=== PATIENT | male | born 1945 | race Caucasian/White ===

== ENCOUNTER 2020-01-08 19:18 | Inpatient (IN) | payer MEDICAID ==
[~2020-01-08] VITALS: Ht 177.8 cm; Wt 82.6 kg
--- NOTE | 2020-01-08 22:00 | NUR ---
Admitted patient from [facility], Awake, per report patient only speaks farsi. No signs of any distress, connected to vent, Gt intact, cleaned and assisted to bed. Jenae Grand daughter called and was aware that patient is admitted and is in room 426.
[2020-01-08 22:15] VITALS: BP 131/76
--- NOTE | 2020-01-08 22:39 | NUR ---
Pt rec'd by ambulance on settings of AC 16, VT 550, +5 PEEP and 5LPM bleed in O2. No resp. distress noted. Shiley 8 is patent and secure; B/U Shiley 8 and BVM are at bedside. Pt to be monitored throughout the shift and PRN sx. HT-50 alarm parameters have been checked and remain audible.
[2020-01-08] MEDS ORDERED: COD LIVER OIL/ZINC OXIDE OINT 113 GM TUBE TOP PRN (23:00)
[2020-01-08] MEDS ORDERED: COD LIVER OIL/ZINC OXIDE OINT 113 GM TUBE TOP SCH (23:00)
[2020-01-09] VITALS (9 sets, daily range): BP systolic 110–179; BP diastolic 62–94
--- NOTE | 2020-01-09 | NUR ---
Patient is afebrile, easy to arouse, trach is intact and patent, connected to vent on prescribed settings, no respiratory distress noted. Gt feeding tolerating well, no nausea or vomiting noted, noted with abdominal discolorations, noted with abdominal fold rash, left and right groin rash, trach site redness and left and right foot dryness, treatment done as ordered, turned and repositioned, kept clean and comfortable.
[2020-01-09] MEDS ORDERED: MAG HYDROX/AL HYDROX/SIMETH 30 ML LIQUID UDC GT PRN (00:30)
[2020-01-09] MEDS ORDERED: ACETAMINOPHEN 650 MG/20.3 ML LIQUID UDC GT PRN ×2 (00:30)
[2020-01-09] MEDS ORDERED: ONDANSETRON 4 MG/2 ML VIAL IV PRN (00:30)
[2020-01-09] MEDS ORDERED: BENZOCAINE/MENTH/CETYLPYRD LOZENGE MM PRN (00:30)
[2020-01-09] MEDS ORDERED: hydrALAZINE HCL 10 MG TABLET GT PRN (00:30)
[2020-01-09] MEDS ORDERED: MORPHINE SULFATE 2 MG/1 ML DISP.SYRIN IM PRN (00:30)
[2020-01-09] MEDS ORDERED: LORAZEPAM 2 MG/1 ML VIAL IV PRN (00:30)
[2020-01-09] MEDS ORDERED: QUETIAPINE FUMARATE 25 MG TABLET PO PRN (00:30)
[2020-01-09] MEDS ORDERED: MAGNESIUM HYDROXIDE 30 ML LIQUID UDC GT PRN ×2 (00:30→08:01)
[2020-01-09] MEDS: COD LIVER OIL/ZINC OXIDE OINT 113 GM TUBE TOP SCH ×6 (02:55→20:35)
[2020-01-09] MEDS: VITAMINS A AND D OINT TP SCH ×3 (02:56→20:35)
[2020-01-09] MEDS: PANTOPRAZOLE ORAL SUSPENSION 40 MG SUSPDR.PKT GT SCH (06:00)
[2020-01-09] MEDS: ASCORBIC ACID 500 MG TABLET GT SCH (06:43)
[2020-01-09] MEDS: PROTEIN SUPPLEMENT (PROSTAT) 30 ML LIQUID GT SCH ×3 (06:43→18:13)
[2020-01-09] MEDS ORDERED: ACETAMINOPHEN 650 MG/20 ML UDC- SA PATIENTS-FEVER ONLY GT PRN (08:00)
--- NOTE | 2020-01-09 08:00 | NUR ---
COVID19 SPECIMEN WAS COLLECTED AND SENT TO LAB.
[2020-01-09] MEDS ORDERED: MORPHINE SULFATE 2 MG/1 ML DISP.SYRIN IV PRN (08:12)
[2020-01-09] MEDS ORDERED: COD LIVER OIL/ZINC OXIDE OINT 113 GM TUBE TP PRN (08:45)
[2020-01-09] MEDS: NEOMY/BACITRA/POLYMYXIN B OINT UD PACKET TP SCH (09:00)
[2020-01-09] MEDS ORDERED: QUETIAPINE FUMARATE 25 MG TABLET GT SCH (09:00)
[2020-01-09] MEDS ORDERED: NORMAL SALINE FLUSH 10 ML DISP.SYRIN IV SCH (09:00)
[2020-01-09] MEDS: COD LIVER OIL/ZINC OXIDE OINT 113 GM TUBE TP SCH ×2 (09:00→20:35)
[2020-01-09] MEDS: NEOMY/BACITRAC/POLYMI OINT 28.35 GM TUBE TOP SCH (09:00)
--- NOTE | 2020-01-09 09:30 | NUR ---
DR. AGRAWAL WAS PAGED AND CALLED BACK AND MEDICAL ORDERS WERE VERIFIED WITH HIM AND WITH NO CHANGES ON CURRENT REGIMEN.HE STATED THAT URINE AND SPUTUM SCREENING NOT NEEDED AT THIS TIME D/T PT. COMES FROM [facility] AND HE WAS AWARE THAT ONLY MRSA SCREENING AND COVID 19 TEST WAS DONE.DR. AGRAWAL WAS ALSO STATED THAT A PSYCH EVAL WAS NOT REQUIRED AT THIS TIME AND THAT HE WILL ASSESS PT. LATER ON AND WILL F/U H&P TOO.HE REQUESTED TO GET COPY OF LATEST LAB RESULTS FROM [facility] IF POSSIBLE.
[2020-01-09] MEDS: ZINC SULFATE 220 MG CAPSULE GT SCH (09:42)
[2020-01-09] MEDS: METOPROLOL TARTRATE 25 MG TABLET GT SCH ×2 (09:42→20:29)
[2020-01-09] MEDS ORDERED: TUBERCULIN,PURIF.PROT.DERIV. 5 TU/0.1 ML TEST ID ONE (10:00)
--- NOTE | 2020-01-09 10:51 | NUR ---
PT'S RESP. GREEN PARTY THAIS CALLED TO UNIT AND AWARE OF PT'S ROOM # AND WAS INSTRUCTED HOW TO ZOOM AND SCHEDULE ZOOM AFTER 11:30.SHE ALSO GAVE CONSENT TO 2 NURSES FOR MEDICATIONS SEROQUEL AND ATIVAN ORDERED (SEE MAR) AND STATED THAT SHE WAS AWARE AND FAMILIAR WITH PT'S USE AND INDICATION OF THESE MEDS ALREADY SINE PT. WAS IN CROCKETTS BLUFF..THAIS ALSO STATED PT. ONLY SPEAKS AND UNDERSTANDS GEORGIAN OR COLOMBIAN AND THAT HE DOES NOT HAVE HEARING PROBLEM OR VISION PROBLEM .
--- NOTE | 2020-01-09 10:55 | NUR ---
PT'S RESP. DEMOCRAT THAIS STATED THAT PT. HAS SCIATIC PAIN EPISODES THAT AFFECT HIS RT LEG FOR THE NURSE TO KNOW.
--- NOTE | 2020-01-09 10:57 | NUR ---
[facility] WAS CALLED AND ALREADY AWARE OF PT'S ADMISSION AND STATED THAT THEY WILL BE SENDING MEDICATIONS TODAY.
--- NOTE | 2020-01-09 11:00 | NUR ---
CASER IN AWARE THAT PT. NEEDS LAO OR CAMBODIAN CHANNEL ON .
--- NOTE | 2020-01-09 11:09 | NUR ---
COVID 19 ISOLATION PRECAUTIONS KEPT ALL TIMES SINCE UPON ADMISSION OF PT LAST NOC.
--- NOTE | 2020-01-09 11:35 | NUR ---
VIDEO CHAT PROVIDED Jenae hui
[2020-01-09] MEDS ORDERED: QUETIAPINE FUMARATE 25 MG TABLET PO ONE (12:41)
[2020-01-09] MEDS: QUETIAPINE FUMARATE 25 MG TABLET GT PRN (13:32)
[2020-01-09] MEDS ORDERED: HYDROGEN PEROXIDE 3% 118 ML BOTTLE TP PRN (15:30)
--- NOTE | 2020-01-09 17:38 | NUR ---
FREQUENT VISUAL CHECKS DONE FOR PTS COMFORT AND SAFETY. DR. WEINER WAS CALLED AND A MESSAGE WAS LEFT FOR ADMISSION PULMONARY CONSULTATION.
--- NOTE | 2020-01-09 17:39 | NUR ---
PT. NOTED ATTEMPTING TO VERBALIZE IN HIS [place] LANGUAGE.
--- NOTE | 2020-01-09 20:00 | NUR ---
MESSAGE LEFT RE: NEW ADMISSION FOR DR. WEINER.
--- NOTE | 2020-01-09 20:11 | NUR ---
Patient received in stable respiratory condition on Sotelo vent with current MD ordered vent settings. All alarms on and audible, Ambubag and spare trach at bedside. Airway is patent and secured. Suctioned PRN. Will continue to monitor.
[2020-01-09] MEDS: QUETIAPINE FUMARATE 25 MG TABLET GT SCH (20:29)
[2020-01-09] MEDS ORDERED: ENOXAPARIN SODIUM 40 MG/0.4 ML DISP.SYRIN SQ SCH (21:00)
[2020-01-09] MEDS: NORMAL SALINE FLUSH 10 ML DISP.SYRIN IV SCH (21:25)
[2020-01-09] MEDS: HYDROGEN PEROXIDE 3% 118 ML BOTTLE TP SCH (21:50)
[2020-01-09] MEDS: GLUCERNA 1.2 1000ML LIQUID GT PRN ×2 (21:54)
--- NOTE | 2020-01-09 22:55 | NUR ---
Patient is asleep, trach intact and patent, connected to Vent as ordered, no respiratory distress noted. Gt feeding tolerating well, no nausea/ vomiting noted. On contact isolation for COVID-19 precaution, kept clean and comfortable.
[2020-01-10] MEDS: ACETAMINOPHEN 650 MG/20 ML UDC- SA PATIENTS-PAIN ONLY GT PRN (02:00)
[2020-01-10] MEDS: QUETIAPINE FUMARATE 25 MG TABLET GT PRN (03:22)
[2020-01-10 03:51] VITALS: BP 118/76
--- NOTE | 2020-01-10 03:51 | NUR ---
T. 101.1, no sign of any distress, trach intact and patent, connected to vent, cooling measures given, 02 sat is 99%, kept patient clean and comfortable, will continue monitor.
--- NOTE | 2020-01-10 04:51 | NUR ---
Temperature rechecked and is now 99.4, sleeping comfortably, no signs of any distress noted, kept clean and comfortable,will continue monitor.
[2020-01-10] MEDS: ASCORBIC ACID 500 MG TABLET GT SCH (05:12)
[2020-01-10] MEDS: PROTEIN SUPPLEMENT (PROSTAT) 30 ML LIQUID GT SCH ×4 (05:12→18:05)
[2020-01-10] MEDS: PANTOPRAZOLE ORAL SUSPENSION 40 MG SUSPDR.PKT GT SCH (05:12)
--- NOTE | 2020-01-10 06:36 | NUR ---
Temperature is 98.6, sleeping , no signs of any distress noted, kept clean and comfortable.
--- NOTE | 2020-01-10 07:30 | NUR ---
RECIEVED PT IN BED, AWAKE, ALERT AND SOMEWHAT RESTLESS. FACE IS EVEN AND SYMMETRICAL. NOTED TO HAVE LEFT SIDED WEAKNESS, LEFT UPPER ARM IS FLACCID. TRACHEOSTOMY SHILEY 8 INTACT, CONNECTED TO A SMALL PORTABLE VENTILATOR MACHINE WITH A SETTING OF AC-16, FIO2 AT 50%, VT-550, PEEP-5. TOLERATING WELL, SAT-100%. SUCTION SMALL AMOUNT OF WHITISH CLEAR SECRETIONS. SEEN AND EXAMINED BY DR AGRAWAL WITH NEW ORDERS.
[2020-01-10 07:50] VITALS: BP 109/82
[2020-01-10] MEDS: ZINC SULFATE 220 MG CAPSULE GT SCH (09:00)
[2020-01-10] MEDS: NORMAL SALINE FLUSH 10 ML DISP.SYRIN IV SCH ×2 (09:00→21:00)
[2020-01-10] MEDS: NEOMY/BACITRAC/POLYMI OINT 28.35 GM TUBE TOP SCH (09:00)
[2020-01-10] MEDS: HYDROGEN PEROXIDE 3% 118 ML BOTTLE TP SCH ×2 (09:00→21:00)
[2020-01-10] MEDS: COD LIVER OIL/ZINC OXIDE OINT 113 GM TUBE TOP SCH ×4 (09:00→20:24)
[2020-01-10] MEDS: METOPROLOL TARTRATE 25 MG TABLET GT SCH ×2 (09:00→20:23)
[2020-01-10] MEDS: COD LIVER OIL/ZINC OXIDE OINT 113 GM TUBE TP SCH ×2 (09:00→20:25)
[2020-01-10] MEDS: NEOMY/BACITRA/POLYMYXIN B OINT UD PACKET TP SCH (09:00)
[2020-01-10] MEDS: QUETIAPINE FUMARATE 25 MG TABLET GT SCH ×2 (09:00→20:24)
[2020-01-10] MEDS: VITAMINS A AND D OINT TP SCH ×2 (09:00→20:25)
--- NOTE | 2020-01-10 09:30 | NUR ---
LAB WORKS DRAWN AND PCXR DONE AT THE BEDSIDE ORDERED. PT HAS A PERIPHERAL LINE ON HIS MY , FLUSHED AND PATENT.
[2020-01-10 09:35] LABS: BASOPHILS % (AUTO) 0.3 % (0.0-2.0); EOSINOPHILS # (AUTO) 0.2 K/uL (0.0-0.7); EOSINOPHILS % (AUTO) 2.6 % (0.0-7.0); HEMATOCRIT 26.6 % (36.7-47.1); HEMOGLOBIN 8.9 g/dL (12.5-16.3); LYMPHOCYTES # (AUTO) 1.2 K/uL (20.0-40.0); MEAN CORPUSCULAR HEMOGLOBIN 29.9 uug (23.8-33.4); MEAN CORPUSCULAR HGB CONC 33 g/dL (32.5-36.3); MEAN CORPUSCULAR VOLUME 89.9 fL (73.0-96.2); MONOCYTES # (AUTO) 1.1 K/uL (2.0-10.0); MONOCYTES % (AUTO) 12.5 % (0.0-11.0); NEUTROPHILS # (AUTO) 6.4 K/uL (1.8-8.9); NEUTROPHILS % (AUTO) 71.6 % (38.5-71.5); PLATELET COUNT (AUTO) 114 K/uL (152-348); RED BLOOD CELL COUNT(AUTO) 2.97 MIL/uL (4.06-5.63); WHITE BLOOD COUNT (AUTO) 8.9 K/uL (3.6-10.2)
--- NOTE | 2020-01-10 09:36 | NUR ---
PT. WAS SEEN AND EXAMINED BY DR. AGRAWAL AND SPOKE TO PT. IN IRISH AND PER HIS STATEMENT PT. IS DISORIENTED HE DOES NOT KNOW WHERE HE IS .
--- NOTE | 2020-01-10 09:38 | NUR ---
NEW ORDERS CARRIED OUT FROM DR. AGRAWAL.
--- NOTE | 2020-01-10 09:40 | NUR ---
DR. AGRAWAL AWARE PT. UNABLE TO SLEEP AT NOC SINCE ADMISSION ,FALLING ASLEEP AT 3 OR 4 IN AM AND NNO.HE STATED THAT NO BREATHING TX NEEDED.RT AWARE TO F/U STANDART ORDER FOR OXIGEN TITRATION .PT'S GRAND DTR THAIS AWARE OF LATEST ORDERS FROM DR. AGRAWAL AND IN AGREEMENT .
[2020-01-10 10:08] LABS: BILIRUBIN,TOTAL 0.5 mg/dL (0.2-1.0); POTASSIUM 3.6 mmol/L (3.5-5.1); TOTAL PROTEIN, SERUM 6.4 g/dL (6.4-8.2)
--- NOTE | 2020-01-10 11:15 | NUR ---
DR. LOPEZ WAS PAGED TO F/U CXR RESULT.
--- NOTE | 2020-01-10 11:30 | NUR ---
T-99F. PT FALLEN ASLEEP AND MORE CALM AFTER SEROQUEL VIA PEG GIVEN. TUBE FEEDING IN PROGRESS, NO RESIDUALS NOTED.
--- NOTE | 2020-01-10 12:43 | NUR ---
URINE COLLECTED AND SENT TO LAB.V/S CHECKED (SEE RECORD)PT. SLEEPING(DID NOT SLEEP WELL LAS T 2 NOCS)PT'S DTR. THAIS AWARE .MORNING CARE DONE .FREQUENT VISUAL CHECKS DONE FOR SAFETY AND COMFORT.
[2020-01-10 12:47] VITALS: BP 120/89
[2020-01-10 13:05] LABS: *BILIRUBIN,URIN NEGATIVE (NEGATIVE); *CLARITY,URINE SLIGHTLY CLOUDY (CLEAR); *COLOR,URINE YELLOW (YELLOW); *KETONES,URINE NEGATIVE (NEGATIVE); *UROBILINOGEN,URINE 0.2 E.U./dl (NORMAL); LEUKOCYTE ESTERASE ,URINE NEGATIVE (NEGATIVE); NITRITE, URINE NEGATIVE (NEGATIVE); UGLUCOSE NEGATIVE (NEGATIVE)
[2020-01-10 13:08] LABS: *BLOOD, URINE TRACE (NEGATIVE)
[2020-01-10] MEDS ORDERED: ENOXAPARIN SODIUM 40 MG/0.4 ML DISP.SYRIN SQ SCH (13:12)
--- NOTE | 2020-01-10 13:59 | NUR ---
PER RT CLAY PT. ON O2 SAT 32% (2L) WITH O2 SATURATION 96%.
--- NOTE | 2020-01-10 14:05 | NUR ---
O2 TITRATED DOWN TO 3LPM/ 32% FIO2. PT SPO2 WITHIN NORMAL LIMITS. PT APPEARS COMFORTABLE
[2020-01-10 15:21] LABS: BACTERIA,URINE FEW /HPF (NONE SEEN); CALCIUM OXALATE CRYSTALS,UR FEW /HPF (NONE SEEN); SQUAMOUS EPITHELIAL CELL,UR FEW /HPF (NONE SEEN)
[2020-01-10 16:00] VITALS: BP 120/89
--- NOTE | 2020-01-10 16:28 | NUR ---
DR. AGRAWAL WAS NOTIFIED ABOUT LAB RESULTS OF CXR CBC AND CMP AND UA AND ALSO AXILLAR TEMP. 99.6 F AND WITH NNO,HE REFUSED TO INCREASE AMOUNT OF WATER FLUSHES VIA GT BECAUSE HE IS TRYING TO AVOID EDEMA .
--- NOTE | 2020-01-10 16:30 | NUR ---
DR. AGRAWAL WAS CALLED AND AWARE THAT IV LORAZEPAM WAS NOT COVER BY INSURANCE AND WITH NEW ORDER NOW TO D/C AND START LORAZEPAM VIA GT PRN Q 2 HRS FOR ANXIETY M/B RESTLESSNESS WITH MONITORING OF EPISODES OF ANXIETY AND SIDE EFFECTS Q SHIFT.
--- NOTE | 2020-01-10 18:42 | NUR ---
PT'S GRAND DTR. THAIS VIDEOZOOMING WITH 4 MORE FAMILY MEMBERS AT THE SAME TIME ,PT. IS AWAKE AND LOOKING AT THE I PAD SCREEN APPARENTLY LISTENING THE CONVERSATION .
--- NOTE | 2020-01-10 19:20 | NUR ---
PT. NOTED INCREASINGLY AGITATED AFTER VIDEO ZOOMING AND PER RT LILIANA STATEMENT WHO SPEAKS UGANDAN,PT. WAS COMPLAINING OF SOME PRESSURE IN HIS CHEST AND NOC SHIFT INTERNATIONAL FIRST OFFICER MELISSA WAS ASKED TO CHECK HIS V/S FIRST AND NOTED WITH B/P 160/100 AND HR 122X' AND O2SAT 96% AND NOC SHIFT WAS INSTRUCTED TO MEDICATE PT. PRN FOR HTN AND DR. AGRAWAL WAS CALLED AND HE CALLED BACK AND AWARE OF SITUATION AND WITH NNO JUST MEDICATE NEEDED FOR HTN AND AGITATION PREVIOUSLY ORDERED AND ENDORSED TO NOC SHIFT TO F/U CARE.
[2020-01-10 20:10] VITALS: BP 163/100
[2020-01-10] MEDS: ENOXAPARIN SODIUM 40 MG/0.4 ML DISP.SYRIN SQ SCH (21:00)
[2020-01-10 21:34] VITALS: BP 91/58
[2020-01-11] VITALS (7 sets, daily range): BP systolic 110–132; BP diastolic 55–92
[2020-01-11] MEDS: PROTEIN SUPPLEMENT (PROSTAT) 30 ML LIQUID GT SCH ×4 (05:35→17:36)
[2020-01-11] MEDS: ASCORBIC ACID 500 MG TABLET GT SCH (05:35)
[2020-01-11] MEDS: PANTOPRAZOLE ORAL SUSPENSION 40 MG SUSPDR.PKT GT SCH (05:35)
[2020-01-11] MEDS: GLUCERNA 1.2 1000ML LIQUID GT PRN (05:36)
[2020-01-11] MEDS: HYDROGEN PEROXIDE 3% 118 ML BOTTLE TP SCH ×2 (08:21→20:03)
[2020-01-11] MEDS: COD LIVER OIL/ZINC OXIDE OINT 113 GM TUBE TOP SCH ×4 (09:41→21:22)
[2020-01-11] MEDS: METOPROLOL TARTRATE 25 MG TABLET GT SCH ×2 (09:41→21:22)
[2020-01-11] MEDS: ZINC SULFATE 220 MG CAPSULE GT SCH (09:41)
[2020-01-11] MEDS: QUETIAPINE FUMARATE 25 MG TABLET GT SCH ×2 (09:41→21:22)
[2020-01-11] MEDS: COD LIVER OIL/ZINC OXIDE OINT 113 GM TUBE TP SCH ×2 (09:42→21:22)
[2020-01-11] MEDS: NEOMY/BACITRA/POLYMYXIN B OINT UD PACKET TP SCH (09:42)
[2020-01-11] MEDS: VITAMINS A AND D OINT TP SCH ×2 (09:42→21:22)
[2020-01-11] MEDS: NEOMY/BACITRAC/POLYMI OINT 28.35 GM TUBE TOP SCH (09:42)
--- NOTE | 2020-01-11 13:00 | NUR ---
SEEN AND EXAMINED BY ANDERSON eKyes AND WITH NEW ORDER CARRIED OUT.
--- NOTE | 2020-01-11 15:00 | NUR ---
PT. WAS SEEN AND EXAMINED BY PT. AND WITH NEW ORDERS CARRIED OUT,ALSO BY OT AND WITH NEW ORDERS CARRIED OUT AND ALSO EXAMINED BY ST. AND WILL KEEP ASSESSING PT.
--- NOTE | 2020-01-11 15:33 | NUR ---
2:15pm: SW met with the patient today to complete patient's initial psychosocial assessment. Patient is a 74 year old male. Patient was admitted to [facility] on 01/08/2020 from [facility], after being at [facility] since 10/2019 for COVID-19. Patient is currently awake, requires a trach and g-tube, and is ventilator dependent. Patient is Prydeinig and Grenadian speaking only, able to communicate with a speaking valve, and appears to be oriented x 2-3. SW tried asking him some questions to complete the assessment, but patient presented with agitation, blunted affect, and stated "stop asking me those stupid questions". Patient was able to state his name and knows he is in the hospital. SW asked patient if he wanted to talk about something else, however patient gestured with his hand for SW to leave. SW to complete the assessment with patient's family. 2:40pm: SW called patient's granddaughter Jenae [phone] and completed the patient's psychosocial assessment with Jenae over the phone. Patient lives in [facility], and him and his came to the in May 2019 as tourists. Patient and his Leslie stayed with patient's [id number]. The plan was for the patient to return to [facility] in June 2019, however was unable to do so because of the COVID-19 pandemic. In October 2019, patient contracted COVID-19, along with his , his [id number], and eventually his daughter. Patient was hospitalized in October 2019 due to COVID-19, and has remained hospitalized since then. Patient was transferred to subacute care on 01/08/2020. Psychosocial assessment was completed. KASI discussed admission paperwork that requires the signature of the responsible libertarian. Jenae stated that patient's daughter Kendra would be dropping off some personal items at the hospital later today, and asked if KASI could give the admission paperwork to Kendra who will bring it home for review and signature. KASI agreed and asked Jenae to return the completed and signed forms to this SW as soon as possible, and Jenae expressed agreement. Patient's Bill of Rights will also be provided to Kendra, along with the admission paperwork. Healthcare Directive was discussed, and Jenae stated that the patient does not have one, however the patient's healthcare wishes are to be a Full Code. Per Jenae, patient plans to return to [facility] as soon as he is better, and therefore healthcare directive or conservatorship paperwork was not necessary at this time. KASI informed Jenae about the routine optometry and podiatry services available in [facility], and asked if they would like for the patient to receive these services, and Jenae expressed agreement. KASI also informed Jenae about the monthly IDT meetings, and stated that KASI would call Jenae and let her know of the date/time of the meetings so she can participate via speaker phone. Jenae expressed agreement. Jenae stated that they are already aware of being able to communicate with the patient via ZOOM, which they do so on a daily basis.
--- NOTE | 2020-01-11 16:30 | NUR ---
KASI met with patient's daughter Kendra in the hospital courtyard. SW provided Kendra with the admission paperwork for review and signatures. SW included instructions on how to review, complete, and sign the paperwork. Kendra expressed understanding. KASI asked Kendra to return the sign forms sometime this week, and Kendra expressed agreement. KASI then called patient's granddaughter Jenae [phone] and informed her that patient's IDT meeting is scheduled for tomorrow, 01/11 at 11am. KASI asked Jenae if she wanted to participate in the meeting through speaker phone. Jenae stated that she would like to participate. KASI asked Jenae to be available between 11am-12pm on 01/11 in order to receive this SW's call during the meeting.
[2020-01-11] MEDS: ENOXAPARIN SODIUM 40 MG/0.4 ML DISP.SYRIN SQ SCH (21:00)
[2020-01-11] MEDS: NORMAL SALINE FLUSH 10 ML DISP.SYRIN IV SCH (21:00)
[2020-01-12 00:10] VITALS: BP 106/71
[2020-01-12 05:52] LABS: BASOPHILS # (AUTO) 0.1 K/uL (0.0-8.0); BASOPHILS % (AUTO) 1.4 % (0.0-2.0); EOSINOPHILS # (AUTO) 0.6 K/uL (0.0-0.7); EOSINOPHILS % (AUTO) 8.1 % (0.0-7.0); HEMATOCRIT 26.6 % (36.7-47.1); HEMOGLOBIN 8.8 g/dL (12.5-16.3); LYMPHOCYTES # (AUTO) 1.2 K/uL (20.0-40.0); LYMPHOCYTES % (AUTO) 17.4 % (20.5-51.5); MEAN CORPUSCULAR HEMOGLOBIN 29.7 uug (23.8-33.4); MEAN CORPUSCULAR HGB CONC 33 g/dL (32.5-36.3); MEAN CORPUSCULAR VOLUME 90.2 fL (73.0-96.2); MONOCYTES # (AUTO) 0.9 K/uL (2.0-10.0); MONOCYTES % (AUTO) 12.6 % (0.0-11.0); NEUTROPHILS # (AUTO) 4.2 K/uL (1.8-8.9); NEUTROPHILS % (AUTO) 60.5 % (38.5-71.5); PLATELET COUNT (AUTO) 152 K/uL (152-348); RED BLOOD CELL COUNT(AUTO) 2.95 MIL/uL (4.06-5.63)
[2020-01-12 06:00] LABS: BILIRUBIN,TOTAL 0.3 mg/dL (0.2-1.0); MAGNESIUM 1.9 mg/dL (1.8-2.4); PHOSPHOROUS 4.5 mg/dL (2.5-4.9); POTASSIUM 3.2 mmol/L (3.5-5.1); TOTAL PROTEIN, SERUM 6.5 g/dL (6.4-8.2)
[2020-01-12 06:02] LABS: ABG BASE EXCESS 2.4 mmol/L; ABG HCO3 26.3 mmol/L; ABG PCO2 38.2 mmHg (35.0-45.0); ABG PH 7.456 (7.350-7.450); ABG PO2 121.7 mmHg (75.0-100.0); ABG SITE RIGHT RADIAL; ABG TOTAL HEMOGLOBIN 10.5 G/dL (13.5-18.0); COHb 0.4 % (0.5-1.5); MetHb 0.3 % (0.0-1.5); O2Hb 97.7 % (94.0-97.0); VENT MODE VENT - A/C; VT, ABG 550 mL
[2020-01-12] MEDS: PROTEIN SUPPLEMENT (PROSTAT) 30 ML LIQUID GT SCH ×4 (06:14→18:06)
[2020-01-12] MEDS: PANTOPRAZOLE ORAL SUSPENSION 40 MG SUSPDR.PKT GT SCH (06:14)
[2020-01-12] MEDS: ASCORBIC ACID 500 MG TABLET GT SCH (06:14)
[2020-01-12 07:28] VITALS: BP 128/80
[2020-01-12] MEDS: NORMAL SALINE FLUSH 10 ML DISP.SYRIN IV SCH (09:00)
[2020-01-12] MEDS: HYDROGEN PEROXIDE 3% 118 ML BOTTLE TP SCH ×2 (09:00→21:57)
--- NOTE | 2020-01-12 09:52 | NUR ---
DR. AGRAWAL PAGED TO F/U ABNORMAL LAB. RESULTS.
[2020-01-12] MEDS: METOPROLOL TARTRATE 25 MG TABLET GT SCH ×2 (09:57→20:34)
[2020-01-12] MEDS: COD LIVER OIL/ZINC OXIDE OINT 113 GM TUBE TOP SCH ×4 (09:58→20:35)
[2020-01-12] MEDS: QUETIAPINE FUMARATE 25 MG TABLET GT SCH ×2 (09:58→20:35)
[2020-01-12] MEDS: ZINC SULFATE 220 MG CAPSULE GT SCH (09:58)
[2020-01-12] MEDS: NEOMY/BACITRA/POLYMYXIN B OINT UD PACKET TP SCH (09:59)
[2020-01-12] MEDS: COD LIVER OIL/ZINC OXIDE OINT 113 GM TUBE TP SCH ×2 (09:59→20:35)
[2020-01-12] MEDS: NEOMY/BACITRAC/POLYMI OINT 28.35 GM TUBE TOP SCH (09:59)
[2020-01-12] MEDS: VITAMINS A AND D OINT TP SCH ×2 (09:59→20:35)
--- NOTE | 2020-01-12 10:50 | NUR ---
RSBI and NIF maneuvers performed by RT Luis Burk. RSBI = 76 , NIF = -8 . Unable to perform FVC due to communication problems. Will endorse to plant operator/shift supervisor staff who speak Albanian.
--- NOTE | 2020-01-12 11:30 | NUR ---
zoom time provide to family granddaughter patient noted not in any distress
[2020-01-12 12:28] LABS: THYROID STIMULATING HORMONE 1.549 mIU/mL (0.358-3.740)
[2020-01-12] MEDS: GLUCERNA 1.2 1000ML LIQUID GT PRN (12:35)
--- NOTE | 2020-01-12 15:11 | NUR ---
ANDERSON Villa AWARE OF LAB RESULTS AND CXR ABNORMAL RESULTS AND WITH NEW ORDER CARRIED OUT.
--- NOTE | 2020-01-12 16:10 | NUR ---
Baseline summary of care reviewed with grand daughter Jenae yesterday 01/11/2020 at 16:39 pm. All questions answered and understood. Electronically signed by Diann Rudd RN, BSN
--- NOTE | 2020-01-12 16:30 | NUR ---
INTERDISCIPLINARY PLAN OF CARE CONFERENCE was held today. Patient's granddaughter Jenae participated in the meeting through speaker phone. Dr. Faye and the Interdisciplinary Team reviewed the current plan of care in detail. Patient was admitted to subacute on 01/08/2020. RN reported on patient's medical condition, pending lab results, x-ray results, and stated that patient remains on isolation precautions per 14 day isolation regulations for post-COVID patients. See RN IDT conference notes. Pharmacy reported on patient's medications and stated that patient is current stable on medications. PT and ST discussed therapy services and treatment plan for the patient. See all disciplines IDT notes and physician's progress notes for additional details. Jenae's questions were addressed by the IDT team and by Dr. Faye, and Jenae expressed understanding and agreement with the current plan of care.
[2020-01-12] MEDS ORDERED: POTASSIUM CHLORIDE 20 MEQ POWDER PACKET GT ONE (17:30)
[2020-01-12 20:31] VITALS: BP 98/55
[2020-01-12] MEDS: ENOXAPARIN SODIUM 40 MG/0.4 ML DISP.SYRIN SQ SCH (20:35)
--- NOTE | 2020-01-12 23:51 | NUR ---
PT ON CONT HT 50 VENT, 02 BLEED IN @ 3L/M , NO VENT CHANGES MADE; PT AWAKE AT TIMES, HARD TO UNDERSTAND VERBALLY PT, SUCTIONED SLIGHT PINKISH TINGE SECRETIONS, CHECK CUFF, CHANGE HME, ALL VENT ALARMS GOOD, NO SOB NOTED, IN ISOLATION, PPE USE BY RT.Cristobal CHEEMAP Addendum: 01/12/20 at 6596 by AMY FALLON RT Amended: Links added.
[2020-01-13] MEDS: PROTEIN SUPPLEMENT (PROSTAT) 30 ML LIQUID GT SCH ×5 (00:57→23:29)
[2020-01-13] MEDS: QUETIAPINE FUMARATE 25 MG TABLET GT PRN (03:30)
[2020-01-13] MEDS: PANTOPRAZOLE ORAL SUSPENSION 40 MG SUSPDR.PKT GT SCH (05:35)
[2020-01-13] MEDS: ASCORBIC ACID 500 MG TABLET GT SCH (05:35)
[2020-01-13 07:37] VITALS: BP 134/89
[2020-01-13 07:41] VITALS: BP 110/59
[2020-01-13] MEDS: HYDROGEN PEROXIDE 3% 118 ML BOTTLE TP SCH ×2 (08:29→19:00)
[2020-01-13] MEDS: METOPROLOL TARTRATE 25 MG TABLET GT SCH ×2 (09:19→21:09)
[2020-01-13] MEDS: QUETIAPINE FUMARATE 25 MG TABLET GT SCH ×2 (09:19→21:10)
[2020-01-13] MEDS: ZINC SULFATE 220 MG CAPSULE GT SCH (09:20)
[2020-01-13] MEDS: COD LIVER OIL/ZINC OXIDE OINT 113 GM TUBE TOP SCH ×4 (09:20→21:11)
[2020-01-13] MEDS: NEOMY/BACITRA/POLYMYXIN B OINT UD PACKET TP SCH (09:21)
[2020-01-13] MEDS: COD LIVER OIL/ZINC OXIDE OINT 113 GM TUBE TP SCH ×2 (09:21→21:11)
[2020-01-13] MEDS: NEOMY/BACITRAC/POLYMI OINT 28.35 GM TUBE TOP SCH (09:21)
[2020-01-13] MEDS: VITAMINS A AND D OINT TP SCH ×2 (09:21→21:13)
[2020-01-13] MEDS: GLUCERNA 1.2 1000ML LIQUID GT PRN (18:33)
[2020-01-13 20:39] VITALS: BP 107/72
--- NOTE | 2020-01-13 20:48 | NUR ---
Patient was awake and was saying, " Jenae, Jenae" patient speaks farsi and Emirati. Patient is alert, and in no distress. Patient's grand daughter Jenae called and was wanting to talk to the patient, I offered zoom but she wanted to face time the patient on his phone. Patient's family talked to him, patient in no distress.
[2020-01-13] MEDS: ENOXAPARIN SODIUM 40 MG/0.4 ML DISP.SYRIN SQ SCH (21:20)
[2020-01-14] MEDS: PROTEIN SUPPLEMENT (PROSTAT) 30 ML LIQUID GT SCH ×3 (05:25→18:07)
[2020-01-14] MEDS: ASCORBIC ACID 500 MG TABLET GT SCH (05:26)
[2020-01-14] MEDS: PANTOPRAZOLE ORAL SUSPENSION 40 MG SUSPDR.PKT GT SCH (05:26)
[2020-01-14 07:32] VITALS: BP 129/77
[2020-01-14] MEDS: QUETIAPINE FUMARATE 25 MG TABLET GT SCH ×2 (08:49→20:39)
[2020-01-14] MEDS: METOPROLOL TARTRATE 25 MG TABLET GT SCH ×2 (08:49→20:39)
[2020-01-14] MEDS: COD LIVER OIL/ZINC OXIDE OINT 113 GM TUBE TOP SCH ×4 (08:50→20:40)
[2020-01-14] MEDS: COD LIVER OIL/ZINC OXIDE OINT 113 GM TUBE TP SCH ×2 (08:50→20:40)
[2020-01-14] MEDS: ZINC SULFATE 220 MG CAPSULE GT SCH (08:50)
[2020-01-14] MEDS: NEOMY/BACITRAC/POLYMI OINT 28.35 GM TUBE TOP SCH (08:50)
[2020-01-14] MEDS: VITAMINS A AND D OINT TP SCH ×2 (08:51→20:40)
[2020-01-14] MEDS: NEOMY/BACITRA/POLYMYXIN B OINT UD PACKET TP SCH (08:51)
[2020-01-14] MEDS: HYDROGEN PEROXIDE 3% 118 ML BOTTLE TP SCH ×2 (09:30→18:49)
--- NOTE | 2020-01-14 10:46 | NUR ---
Patient is not in any distress, 02 sat is 99%, connected to vent, no signs of any distress noted. Patient still on face time with his family.
--- NOTE | 2020-01-14 11:38 | NUR ---
KASI spoke with Liana at Dr. Hernandez's office [phone] and scheduled patient's initial optometry appointment for 01/21/2020. KASI faxed patient's face sheet to Liana at [phone].
[2020-01-14 20:00] VITALS: BP 120/90
[2020-01-14] MEDS: ENOXAPARIN SODIUM 40 MG/0.4 ML DISP.SYRIN SQ SCH (20:40)
--- NOTE | 2020-01-14 20:45 | NUR ---
Patient's grand daughter Jenae called to talk to patient on his cellphone, patient face time with his family.
[2020-01-15] MEDS: GLUCERNA 1.2 1000ML LIQUID GT PRN ×2 (00:45→23:15)
[2020-01-15] MEDS: LORAZEPAM 1 MG TABLET GT PRN (01:00)
[2020-01-15] MEDS: ASCORBIC ACID 500 MG TABLET GT SCH (05:51)
[2020-01-15] MEDS: PROTEIN SUPPLEMENT (PROSTAT) 30 ML LIQUID GT SCH ×5 (05:51→23:08)
[2020-01-15] MEDS: PANTOPRAZOLE ORAL SUSPENSION 40 MG SUSPDR.PKT GT SCH (05:51)
[2020-01-15 07:46] VITALS: BP 123/82
[2020-01-15] MEDS: HYDROGEN PEROXIDE 3% 118 ML BOTTLE TP SCH ×2 (08:58→21:22)
[2020-01-15] MEDS: METOPROLOL TARTRATE 25 MG TABLET GT SCH ×2 (09:38→20:48)
[2020-01-15] MEDS: ZINC SULFATE 220 MG CAPSULE GT SCH (09:38)
[2020-01-15] MEDS: NEOMY/BACITRA/POLYMYXIN B OINT UD PACKET TP SCH (09:38)
[2020-01-15] MEDS: COD LIVER OIL/ZINC OXIDE OINT 113 GM TUBE TP SCH ×2 (09:38→20:48)
[2020-01-15] MEDS: VITAMINS A AND D OINT TP SCH ×2 (09:38→20:48)
[2020-01-15] MEDS: QUETIAPINE FUMARATE 25 MG TABLET GT SCH ×2 (09:38→20:48)
[2020-01-15] MEDS: COD LIVER OIL/ZINC OXIDE OINT 113 GM TUBE TOP SCH ×4 (09:38→20:48)
[2020-01-15] MEDS: NEOMY/BACITRAC/POLYMI OINT 28.35 GM TUBE TOP SCH (09:38)
--- NOTE | 2020-01-15 12:58 | NUR ---
Left message to Iftikhar form Dr. Nesbitt office regarding psych consult.
[2020-01-15 20:11] VITALS: BP 144/77
[2020-01-15] MEDS: ENOXAPARIN SODIUM 40 MG/0.4 ML DISP.SYRIN SQ SCH (20:48)
[2020-01-16] MEDS: PANTOPRAZOLE ORAL SUSPENSION 40 MG SUSPDR.PKT GT SCH (05:38)
[2020-01-16] MEDS: ASCORBIC ACID 500 MG TABLET GT SCH (05:38)
[2020-01-16] MEDS: PROTEIN SUPPLEMENT (PROSTAT) 30 ML LIQUID GT SCH ×4 (05:38→23:17)
[2020-01-16 07:57] VITALS: BP 120/80
--- NOTE | 2020-01-16 08:02 | NUR ---
PT RECEIVED TRACH TO VENT ON CMV, PT IS ON A HT-50 VENT ON SETTINGS OF A/C 16, VT 550, PEEP +5, AND 3LPM BLEED-IN O2. VENT PARAMETERS AND ALARMS CHECKED, ALARMS ARE AUDIBLE. DEEP TRACHEAL SUCTION DONE, BLOODY SECRETIONS AND BLOOD CLOTS NOTED. COLD SALINE LAVAGE PERFORMED. PRESIDENT COLLEGE OR UNIVERSITY AND MANAGER INTELLIGENCE RONALDO NOTIFIED. PT IS AWAKE, ALERT AND RESPONSIVE, PT IS TOLERATING VENT WELL, NO RESP. DISTRESS NOTED. BVM AND BACK-UP TRACH AT BEDSIDE. WILL CONTINUE TO MONITOR.
[2020-01-16] MEDS: ZINC SULFATE 220 MG CAPSULE GT SCH (08:57)
[2020-01-16] MEDS: QUETIAPINE FUMARATE 25 MG TABLET GT SCH ×2 (08:57→20:24)
[2020-01-16] MEDS: METOPROLOL TARTRATE 25 MG TABLET GT SCH ×2 (08:57→20:24)
[2020-01-16] MEDS: COD LIVER OIL/ZINC OXIDE OINT 113 GM TUBE TOP SCH ×4 (08:57→20:24)
[2020-01-16] MEDS: NEOMY/BACITRA/POLYMYXIN B OINT UD PACKET TP SCH (08:58)
[2020-01-16] MEDS: VITAMINS A AND D OINT TP SCH ×2 (08:58→20:24)
[2020-01-16] MEDS: NEOMY/BACITRAC/POLYMI OINT 28.35 GM TUBE TOP SCH (08:58)
[2020-01-16] MEDS: COD LIVER OIL/ZINC OXIDE OINT 113 GM TUBE TP SCH ×2 (08:58→20:24)
[2020-01-16] MEDS: LORAZEPAM 1 MG TABLET GT PRN (08:59)
--- NOTE | 2020-01-16 09:00 | NUR ---
0830- Pt noted to have bloody secretions with some clots by Respiratory therapist upon AM rounds. Cold saline lavage followed by suctioning provided to clear blood and clots. also, [place] 1 tab via G-tube was given for pain and Ativan 1 mg for restlessness. Dairy Manufacturing Technologist made aware of finding. Pt is on Lovenox anti-coagulant therapy. V/s STABLE. Afebrile at this time. Will continue to monitor.
[2020-01-16] MEDS: HYDROCODONE/APAP 10-325 MG TABLET GT PRN (09:01)
[2020-01-16] MEDS: HYDROGEN PEROXIDE 3% 118 ML BOTTLE TP SCH ×2 (10:20→21:33)
--- NOTE | 2020-01-16 12:00 | NUR ---
Pt continues to have bloody secretion when suctioned. Respiratory therapist closely monitoring Pt. Frequent rounds provided to monitor any signs of SOB or distress. Condition stable at this time.
--- NOTE | 2020-01-16 14:15 | NUR ---
Zoom meeting provided with pt's grand daughter Jenae. Pt has no SOB no respiratory distress noted at this time.
--- NOTE | 2020-01-16 16:00 | NUR ---
Pt sleeping in bed comfortably. No SOB no respiratory distress noted. Will continue to monitor.
--- NOTE | 2020-01-16 18:40 | NUR ---
Pt resting in bed comfortably. No c/o pain, no discomfort noted. Kept clean and dry. Remains with slight bloody secretions. Condition stable at this time. Will endorse to oncoming nurse to continue monitoring for secretions.
[2020-01-16 20:22] VITALS: BP 130/88
[2020-01-16] MEDS: ENOXAPARIN SODIUM 40 MG/0.4 ML DISP.SYRIN SQ SCH (20:24)
--- NOTE | 2020-01-16 20:24 | NUR ---
RESIDENT NOTED WITH BLOODY SECRETIONS. TRACH CARE PROVIDED FROM RESPIRATORY THERAPIST. HELD LOVENOX DUE TO THE BLOODY SECRETIONS. RESIDENT COMFORTABLE AT THIS TIME. NO S/S OF PAIN OR DISCOMFORT. NO FACIAL GRIMACING NOTED. NO GRUNTS OR MOANS. NO S/S OF INFECTION AT THIS TIME. RESIDENT REMAINS AFEBRILE. ALL NEEDS MET. KEPT CLEAN AND DRY. WILL CONTINUE TO MONITOR. CALL LIGHT LEFT WITHIN REACH.
[2020-01-17] MEDS: LORAZEPAM 1 MG TABLET GT PRN ×3 (02:20→20:27)
--- NOTE | 2020-01-17 02:21 | NUR ---
RESIDENT IN BED RESTLESS. RESIDENT HAS BEEN CHANGED AND CLEANED TO SEE IF BEHAVIOR IMPROVES. RESIDENT CONTINUES TO BE RESTLESS. ADMINISTERED 1MG ATIVAN TABLET VIA GT ORDERED FOR RESTLESSNESS. WILL CONTINUE TO MONITOR.
[2020-01-17] MEDS: GLUCERNA 1.2 1000ML LIQUID GT PRN (03:05)
[2020-01-17] MEDS: PANTOPRAZOLE ORAL SUSPENSION 40 MG SUSPDR.PKT GT SCH (05:31)
[2020-01-17] MEDS: ASCORBIC ACID 500 MG TABLET GT SCH (05:31)
[2020-01-17] MEDS: PROTEIN SUPPLEMENT (PROSTAT) 30 ML LIQUID GT SCH ×4 (05:31→23:21)
[2020-01-17] MEDS: HYDROGEN PEROXIDE 3% 118 ML BOTTLE TP SCH ×2 (07:00→21:01)
[2020-01-17] MEDS: QUETIAPINE FUMARATE 25 MG TABLET GT SCH ×2 (08:47→20:27)
[2020-01-17] MEDS: ZINC SULFATE 220 MG CAPSULE GT SCH (08:47)
[2020-01-17] MEDS: COD LIVER OIL/ZINC OXIDE OINT 113 GM TUBE TOP SCH ×4 (08:48→20:27)
[2020-01-17] MEDS: NEOMY/BACITRA/POLYMYXIN B OINT UD PACKET TP SCH (08:49)
[2020-01-17] MEDS: NEOMY/BACITRAC/POLYMI OINT 28.35 GM TUBE TOP SCH (08:49)
[2020-01-17] MEDS: COD LIVER OIL/ZINC OXIDE OINT 113 GM TUBE TP SCH ×2 (08:49→20:27)
[2020-01-17] MEDS: VITAMINS A AND D OINT TP SCH ×2 (08:49→20:27)
[2020-01-17] MEDS: METOPROLOL TARTRATE 25 MG TABLET GT SCH ×2 (09:06→20:27)
--- NOTE | 2020-01-17 18:46 | NUR ---
Pt remains with slight tinged red secretions. No c/o pain no discomfort noted throughout shift. Ativan 1mg tab 1mg given in am for anxiety secondary to restlessness. Effective. Zoom meeting with granddaughter Jenae provided as well of assistance with personal phone throughout shift. ( Pt unable to dial or answer personal phone ) pt condition remains stable. No SOB and No respiratory distress noted. V/S remains WNL. Afebrile. Will continue to monitor.
[2020-01-17 20:14] VITALS: BP 150/96
[2020-01-17] MEDS: ENOXAPARIN SODIUM 40 MG/0.4 ML DISP.SYRIN SQ SCH (20:28)
--- NOTE | 2020-01-17 20:38 | NUR ---
RESIDENT IN BED RESTLESS. RESIDENT HAS ALREADY BEEN CHANGED AND REPOSITIONED. RESTLESS BEHAVIOR CONTINUES (THROWING PILLOWS, YELLING). ATIVAN 1MG TABLET GIVEN VIA GT PRN ORDERED FOR RESTLESSNESS. NO S/S OF PAIN OR DISCOMFORT. NO FACIAL GRIMACING NOTED. NO GRUNTS OR MOANS. ALL NEEDS MET. NO BLOODY SECRETIONS NOTED AT THIS TIME. KEPT CLEAN AND DRY. CALL LIGHT LEFT WITHIN REACH. WILL CONTINUE TO MONITOR.
[2020-01-18] MEDS: GLUCERNA 1.2 1000ML LIQUID GT PRN (02:49)
[2020-01-18] MEDS: LORAZEPAM 1 MG TABLET GT PRN ×3 (04:57→23:36)
--- NOTE | 2020-01-18 04:57 | NUR ---
RESIDENT IN BED CONTINUING TO YELL AND THROW PILLOWS AND BLANKET. RESIDENT WAS CHANGED, KEPT CLEAN AND DRY TO SEE IF BEHAVIOR IMPROVES. RESIDENT CONTINUES TO DISPLAY RESTLESS BEHAVIOR (YELLING, THROWING PILLOWS/BLANKETS/CELL PHONE). ADMINISTERED ATIVAN 1MG TABLET VIA GT PRN ORDERED DUE TO RESTLESSNESS. NO S/S OF PAIN OR DISCOMFORT. NO FACIAL GRIMACING. NO S/S OF ACUTE DISTRESS. NO N/V. KEPT CLEAN AND DRY. CALL LIGHT LEFT WITHIN REACH. WILL CONTINUE TO MONITOR.
[2020-01-18] MEDS: PROTEIN SUPPLEMENT (PROSTAT) 30 ML LIQUID GT SCH ×4 (05:01→23:36)
[2020-01-18] MEDS: ASCORBIC ACID 500 MG TABLET GT SCH (05:01)
[2020-01-18] MEDS: PANTOPRAZOLE ORAL SUSPENSION 40 MG SUSPDR.PKT GT SCH (05:01)
[2020-01-18 07:36] VITALS: BP 170/108
[2020-01-18] MEDS: COD LIVER OIL/ZINC OXIDE OINT 113 GM TUBE TOP SCH ×4 (08:38→20:35)
[2020-01-18] MEDS: METOPROLOL TARTRATE 25 MG TABLET GT SCH ×2 (08:38→20:35)
[2020-01-18] MEDS: QUETIAPINE FUMARATE 25 MG TABLET GT SCH ×2 (08:38→20:35)
[2020-01-18] MEDS: ZINC SULFATE 220 MG CAPSULE GT SCH (08:38)
[2020-01-18] MEDS: VITAMINS A AND D OINT TP SCH ×2 (08:39→20:36)
[2020-01-18] MEDS: NEOMY/BACITRA/POLYMYXIN B OINT UD PACKET TP SCH (08:39)
[2020-01-18] MEDS: NEOMY/BACITRAC/POLYMI OINT 28.35 GM TUBE TOP SCH (08:39)
[2020-01-18] MEDS: COD LIVER OIL/ZINC OXIDE OINT 113 GM TUBE TP SCH ×2 (08:39→20:35)
--- NOTE | 2020-01-18 10:00 | NUR ---
DR. PRITCHETT (BUSINESS DEVELOPMENT RECRUITER) WAS PAGED AT THIS TIME PER PT'S GRAND DTR.REQUEST D/T SHE BELIEVES MEDICATIONS ARE MAKING HIM CONFUSED ,CH. NURSE REMIONDED HER THAT UP ON ADMISSION DR. AGRAWAL SPOKE TO HIM IN HIS LANGUAGE AND HE SAID THAT HE IS DISORIENTED.
[2020-01-18] MEDS: HYDROGEN PEROXIDE 3% 118 ML BOTTLE TP SCH ×2 (11:00→20:36)
[2020-01-18 12:20] VITALS: BP 144/91
[2020-01-18 12:30] VITALS: BP 130/70
--- NOTE | 2020-01-18 12:30 | NUR ---
PT. OBSERVED BY CUSTOMS EXAMINER AND SUPERVISOR IN CIRCUIT TESTING WITH RESPIRATORY DISTRESS, AND NOTIFIED RACK CLEANER AND CH. NURSE AND RAPID RESPONSE WAS PAGED AND AFTER DEEP SUCTION BY RT OLET APPARENTLY A BLOODY DRY MUCUS PLUG SUCTIONED AND THEN PT. RECOVERED IMMEDIATELY AND V/S CHECKED DURING DISTRESS AND AFTER DISTRESS AND IMPROVED IMMEDIATELY GOING FROM 144/91,HR 126X,28X',TEMP .98F ,02 SAT 60% ,P/A 0/10 TO TEMP. 98F,B/P 130/70,RR 22X',02 98%,HR 85X' P/A 0/[address] PRITCHETT PAGED .
[2020-01-18 14:19] VITALS: BP 96/66
--- NOTE | 2020-01-18 14:26 | NUR ---
DR. CASTRO WAS CALLED AND MESSAGE LEFT TO F/U PSYCH EVAL.
--- NOTE | 2020-01-18 16:06 | NUR ---
NURSING BRICKMASON LENIN WILL TRY TO CALL DR. CASTRO TOO.
[2020-01-18] MEDS ORDERED: LEVALBUTEROL HCL NEB 0.63 MG/3 ML NEBU NEB ONE (17:53)
--- NOTE | 2020-01-18 18:00 | NUR ---
PT'S GRAND DTR. THAIS AWARE OF PT'S LATEST CONDITION AND ORDERS AND IN AGREEMENT AND STATED THAT WILL DO VIDEO ZOOM TONIGHT.
[2020-01-18] MEDS: ACETYLCYSTEINE 10% 4ML VIAL IH SCH (19:28)
[2020-01-18] MEDS: ENOXAPARIN SODIUM 40 MG/0.4 ML DISP.SYRIN SQ SCH (20:36)
[2020-01-18 20:46] VITALS: BP 135/74
--- NOTE | 2020-01-18 21:20 | NUR ---
Patient received in stable respiratory condition on Sotelo vent with current MD ordered vent settings. All alarms on and audible, Ambubag and spare trach at bedside. Airway is patent and secured. Suctioned PRN. Will continue to monitor. Addendum: 01/19/20 at 0251 by YIN OLIVARES RT Patient received in stable respiratory condition on HT-50 vent with current MD ordered vent settings. All alarms on and audible, Ambubag and spare trach at bedside. Airway is patent and secured. Suctioned PRN. Will continue to monitor.
[2020-01-19] MEDS: LORAZEPAM 1 MG TABLET GT PRN ×2 (01:47→17:22)
[2020-01-19] MEDS: HYDROCODONE/APAP 10-325 MG TABLET GT PRN ×2 (01:47→21:00)
[2020-01-19] MEDS: ASCORBIC ACID 500 MG TABLET GT SCH (05:39)
[2020-01-19] MEDS: PANTOPRAZOLE ORAL SUSPENSION 40 MG SUSPDR.PKT GT SCH (05:39)
[2020-01-19] MEDS: PROTEIN SUPPLEMENT (PROSTAT) 30 ML LIQUID GT SCH ×3 (05:39→17:22)
[2020-01-19 06:41] LABS: HEMATOCRIT 26.2 % (36.7-47.1); HEMOGLOBIN 8.7 g/dL (12.5-16.3); MEAN CORPUSCULAR VOLUME 90.2 fL (73.0-96.2); WHITE BLOOD COUNT (AUTO) 7.3 K/uL (3.6-10.2)
[2020-01-19 06:42] LABS: BASOPHILS # (AUTO) 0.1 K/uL (0.0-8.0); BASOPHILS % (AUTO) 1.1 % (0.0-2.0); EOSINOPHILS # (AUTO) 0.2 K/uL (0.0-0.7); EOSINOPHILS % (AUTO) 2.3 % (0.0-7.0); LYMPHOCYTES # (AUTO) 1.3 K/uL (20.0-40.0); MEAN CORPUSCULAR HEMOGLOBIN 29.9 uug (23.8-33.4); MEAN CORPUSCULAR HGB CONC 33 g/dL (32.5-36.3); MONOCYTES # (AUTO) 0.9 K/uL (2.0-10.0); MONOCYTES % (AUTO) 12.6 % (0.0-11.0); NEUTROPHILS # (AUTO) 4.8 K/uL (1.8-8.9); PLATELET COUNT (AUTO) 299 K/uL (152-348)
[2020-01-19 06:54] LABS: BILIRUBIN,TOTAL 0.2 mg/dL (0.2-1.0); CREATININE 0.9 mg/dL (0.6-1.3); POTASSIUM 3.8 mmol/L (3.5-5.1); TOTAL PROTEIN, SERUM 6.3 g/dL (6.4-8.2)
[2020-01-19 07:27] VITALS: BP 153/94
[2020-01-19] MEDS: HYDROGEN PEROXIDE 3% 118 ML BOTTLE TP SCH ×2 (07:53→21:39)
[2020-01-19] MEDS: LEVALBUTEROL HCL NEB 0.63 MG/3 ML NEBU NEB PRN (07:53)
[2020-01-19] MEDS: ACETYLCYSTEINE 10% 4ML VIAL IH SCH ×2 (07:53→19:30)
[2020-01-19] MEDS: VITAMINS A AND D OINT TP SCH ×2 (08:46→20:47)
[2020-01-19] MEDS: QUETIAPINE FUMARATE 25 MG TABLET GT SCH ×2 (08:46→20:47)
[2020-01-19] MEDS: NEOMY/BACITRAC/POLYMI OINT 28.35 GM TUBE TOP SCH (08:46)
[2020-01-19] MEDS: COD LIVER OIL/ZINC OXIDE OINT 113 GM TUBE TP SCH ×2 (08:46→20:47)
[2020-01-19] MEDS: COD LIVER OIL/ZINC OXIDE OINT 113 GM TUBE TOP SCH ×4 (08:46→20:47)
[2020-01-19] MEDS: ZINC SULFATE 220 MG CAPSULE GT SCH (08:46)
[2020-01-19] MEDS: METOPROLOL TARTRATE 25 MG TABLET GT SCH ×2 (08:46→20:46)
--- NOTE | 2020-01-19 10:16 | NUR ---
KASI spoke with patient's granddaughter Jenae this morning, , and asked her if the family had reviewed and completed the admission paperwork that patient's daughter had picked up from this SW on 01/10. Jenae stated that she is out-of-town, but will be returning home today and will follow up on this matter. KASI reminded Jenae that the paperwork is time-sensitive, and asked Jenae if they can be signed and returned to this this week. Jenae expressed agreement. KASI also informed eJnae that the next IDT meeting for the patient is scheduled for 01/26/2020 at 11am, and asked Jenae if she wanted to participate in the meeting via speaker phone. Jenae expressed agreement. KASI asked Jenae to be available on 01/25 between 11am-12pm in order to receive this SW's call during the meeting, and Jenae expressed understanding and agreement.
[2020-01-19 20:58] VITALS: BP 145/86
--- NOTE | 2020-01-19 21:30 | NUR ---
granddaughter,herbert is okay to pt receive flu shot.
[2020-01-20] MEDS: PROTEIN SUPPLEMENT (PROSTAT) 30 ML LIQUID GT SCH ×4 (00:35→17:33)
[2020-01-20] MEDS: PANTOPRAZOLE ORAL SUSPENSION 40 MG SUSPDR.PKT GT SCH (06:14)
[2020-01-20] MEDS: ASCORBIC ACID 500 MG TABLET GT SCH (06:14)
[2020-01-20 07:29] VITALS: BP 126/55
[2020-01-20] MEDS: ACETYLCYSTEINE 10% 4ML VIAL IH SCH ×2 (07:30→20:14)
[2020-01-20] MEDS: HYDROGEN PEROXIDE 3% 118 ML BOTTLE TP SCH ×2 (09:00→21:26)
[2020-01-20] MEDS: METOPROLOL TARTRATE 25 MG TABLET GT SCH ×2 (09:12→21:26)
[2020-01-20] MEDS: COD LIVER OIL/ZINC OXIDE OINT 113 GM TUBE TP SCH ×2 (09:13→21:27)
[2020-01-20] MEDS: VITAMINS A AND D OINT TP SCH ×2 (09:13→21:27)
[2020-01-20] MEDS: COD LIVER OIL/ZINC OXIDE OINT 113 GM TUBE TOP SCH ×4 (09:13→21:27)
[2020-01-20] MEDS: NEOMY/BACITRAC/POLYMI OINT 28.35 GM TUBE TOP SCH (09:13)
[2020-01-20] MEDS: QUETIAPINE FUMARATE 25 MG TABLET GT SCH ×2 (09:13→21:26)
[2020-01-20] MEDS: ZINC SULFATE 220 MG CAPSULE GT SCH (09:14)
[2020-01-20] MEDS: HYDROCODONE/APAP 10-325 MG TABLET GT PRN (09:25)
[2020-01-20] MEDS: GLUCERNA 1.2 1000ML LIQUID GT PRN (11:18)
[2020-01-20] MEDS: LEVALBUTEROL HCL NEB 0.63 MG/3 ML NEBU NEB PRN ×2 (11:42→21:29)
--- NOTE | 2020-01-20 15:13 | NUR ---
Pt's grand daughter (Jenae) was contacted via telephone by DSD for and giving officer, regarding her inquiries for visitation. Jenae was informed of [facility] policies for no visitation at this time, based on state and local ordinances in order for vulnerable residents not to be exposed unnecessarily to COVID 19. Jenae asked if she could contact [facility] in order to obtain an exception, to which she was informed politely to feel free to contact [facility] if she wishes.
[2020-01-20 20:08] VITALS: BP 124/81
[2020-01-20] MEDS: LORAZEPAM 1 MG TABLET GT PRN (22:00)
[2020-01-21] MEDS: HYDROCODONE/APAP 10-325 MG TABLET GT PRN (02:00)
[2020-01-21] MEDS: PROTEIN SUPPLEMENT (PROSTAT) 30 ML LIQUID GT SCH ×4 (06:03→18:22)
[2020-01-21] MEDS: PANTOPRAZOLE ORAL SUSPENSION 40 MG SUSPDR.PKT GT SCH (06:03)
[2020-01-21] MEDS: ASCORBIC ACID 500 MG TABLET GT SCH (06:03)
[2020-01-21 08:08] VITALS: BP 130/88
[2020-01-21] MEDS: ACETYLCYSTEINE 10% 4ML VIAL IH SCH (08:21)
--- NOTE | 2020-01-21 08:21 | NUR ---
PT RECEIVED TRACH TO VENT ON CMV, PT IS ON A HT-50 VENT ON SETTINGS OF A/C 16, VT 550, PEEP +5, AND 3LPM BLEED-IN O2. VENT PARAMETERS AND ALARMS CHECKED, ALARMS ARE AUDIBLE. TRACH CARE DONE, PT HAS A STRONG PRODUCTIVE COUGH, BLOODY TINGED SECRETIONS AND MUCUS PLUGS NOTED. COLD SALINE LAVAGE PERFORMED. RN AND TELEVISION JOURNALIST FLOYD NOTIFIED. PT IS AWAKE, ALERT AND RESPONSIVE, PT IS TOLERATING VENT WELL, NO RESP. DISTRESS NOTED. BVM AND BACK-UP TRACH AT BEDSIDE. WILL CONTINUE TO MONITOR.
[2020-01-21] MEDS: ZINC SULFATE 220 MG CAPSULE GT SCH (09:00)
[2020-01-21] MEDS: NEOMY/BACITRAC/POLYMI OINT 28.35 GM TUBE TOP SCH (09:00)
[2020-01-21] MEDS: COD LIVER OIL/ZINC OXIDE OINT 113 GM TUBE TP SCH ×2 (09:00→21:38)
[2020-01-21] MEDS: COD LIVER OIL/ZINC OXIDE OINT 113 GM TUBE TOP SCH ×4 (09:00→21:38)
[2020-01-21] MEDS: VITAMINS A AND D OINT TP SCH ×2 (09:00→21:39)
--- NOTE | 2020-01-21 10:00 | NUR ---
DR. CASTRO (PSYCHIATRIST) WAS CALLED AND AWARE OF CONSULTATION AND STATED THAT SHE ALREADY KNEW AND WILL SEE PT. TODAY.
[2020-01-21] MEDS: QUETIAPINE FUMARATE 25 MG TABLET GT SCH ×2 (10:03→21:38)
[2020-01-21] MEDS: HYDROGEN PEROXIDE 3% 118 ML BOTTLE TP SCH ×2 (10:04→21:00)
[2020-01-21] MEDS: METOPROLOL TARTRATE 25 MG TABLET GT SCH ×2 (10:05→21:38)
--- NOTE | 2020-01-21 11:24 | NUR ---
NEW ORDER CARRIED OUT FROM ANDERSON NOWAK FOR [facility] SHANNON.,PT'S GRAND DTR. AWARE AND IN AGREEMENT.
[2020-01-21] MEDS: LEVALBUTEROL HCL NEB 0.63 MG/3 ML NEBU NEB PRN (11:38)
[2020-01-21] MEDS ORDERED: QUETIAPINE FUMARATE 25 MG TABLET GT ONE (12:43)
[2020-01-21] MEDS: QUETIAPINE FUMARATE 25 MG TABLET GT PRN (12:49)
--- NOTE | 2020-01-21 12:51 | NUR ---
12:20pm: This SW was asked by supercharger mechanic Norma to assist nursing staff with translating for the patient, since patient was trying to say something to the nurses and was observed to be agitated. SW arrived to the patient's room, and patient observed to be speaking with a loud voice. SW engaged in conversation with the patient to try and tend to his needs. Patient observed to be restless in bed, moving his legs, and continued speaking with a loud voice stating that he wants a blanket and pillows. SW translated patient's needs to the supercharger mechanic Norma, who immediately provided patient with a blanket, and patient's assigned nurse Keli provided patient with additional pillows. Patient then asked for the TV volume to be lowered, however continued speaking in a loud voice. Patient observed to have removed his diaper and pants, and SW assisted the nurse in providing the patient with instructions to let the nurse know if wanted to remove his clothing. Patient's immediate needs were met by nursing, however psych consult continues to remain pending.
--- NOTE | 2020-01-21 13:30 | NUR ---
DR. CASTRO (PSYCHIATRIST0 SPOKE TO PT. VIA VIDEO ZOOM AND WAS SSISTED BY JOSE STONER OUT WITH TRANSLATION,PT. APPEARED RESTLESS AND HE WAS ABLE TO VERBALIZED NEEDS.DR. CASTRO STATED THAT SHE WILL SPEAK TO PT'S GRAND DTR. ABOUT THIS CONSULTATION.
--- NOTE | 2020-01-21 13:30 | NUR ---
psychiatrist dr reed consulted with patient via zoom. social insurance adviser also was in the room for assisted translation.
--- NOTE | 2020-01-21 13:45 | NUR ---
eye doctor rounded on patient today
[2020-01-21] MEDS: VALPROIC ACID 250 MG/5 ML LIQUID UDC GT SCH ×2 (14:30→17:00)
--- NOTE | 2020-01-21 15:00 | NUR ---
charge nurse spoke to daughter regarding new medication (valopric acid) and she refused the medication to be given to patient.
--- NOTE | 2020-01-21 15:30 | NUR ---
PT'S GRAND DTR. WAS CALLED TO VERIFY CONSENT FOR NEW MEDICATIONS:DECREASE OF ATIVAN DOSE TO 0.5MG Q 6 HRS PRN FOR ANXIETY M/S RESTLESSNESS AND NEW MEDICATION:VALPROIC ACID 125 MG 3 TIMES A DAY AND SHE WAS IN AGREEMENT WITH ATIVAN DOSE REDUCTION BUT SHE SAID ILL CALL U BACK BECAUSE I WANT TO DO MORE RESEARCH FOR ODILON PROIC ACID.
--- NOTE | 2020-01-21 17:00 | NUR ---
grand daughter has not called back regarding the use of new medication valporic acid
[2020-01-21] MEDS ORDERED: LEVALBUTEROL HCL NEB 0.63 MG/3 ML NEBU NEB ONE (17:21)
[2020-01-21] MEDS ORDERED: ACETYLCYSTEINE 20% 800 MG/4 ML VIAL INH ONE (17:21)
--- NOTE | 2020-01-21 18:27 | NUR ---
SEEN AND EXAMINED BY DR. WEINER AND AWARE OF PT'S PSYCH EVAL. VIA ZOOM WITH DR. CASTRO AND NEW ORDERS AND ALSO THAT PT'S GRAND DTR. WANTS TO DO HER RESEARCH FIRST ABOUT VALPROIC ACID BEFORE GIVING CONSENT FOR IT .DR. WEINER AWARE THAT PT. HAS BLOODY THICK MUCUS PLUGS WHEN RT SUCTIONS PT. AND WITH NEW ORDERS CARRIED OUT.
--- NOTE | 2020-01-21 19:23 | NUR ---
NEW ORDER OBTAINED FROM ANDERSON SHE P.AStuart FOR FLU VACCINE.
[2020-01-21 20:00] VITALS: BP 110/76
[2020-01-21] MEDS ORDERED: INFLUENZA VACCINE 2020-2021 0.5 ML DISP.SYRIN IM ONE (20:00)
[2020-01-21] MEDS ORDERED: LEVALBUTEROL HCL NEB 0.63 MG/3 ML NEBU NEB SCH (23:30)
[2020-01-21] MEDS: LORAZEPAM 0.5 MG TABLET GT PRN (23:30)
[2020-01-21] MEDS: LEVALBUTEROL HCL NEB 0.63 MG/3 ML NEBU NEB SCH (23:58)
[2020-01-21] MEDS: ACETYLCYSTEINE 20% 800 MG/4 ML VIAL INH SCH (23:58)
[2020-01-22] MEDS: PROTEIN SUPPLEMENT (PROSTAT) 30 ML LIQUID GT SCH ×4 (05:08→17:26)
[2020-01-22] MEDS: PANTOPRAZOLE ORAL SUSPENSION 40 MG SUSPDR.PKT GT SCH (05:09)
[2020-01-22] MEDS: ASCORBIC ACID 500 MG TABLET GT SCH (05:09)
[2020-01-22 06:17] LABS: ABG BASE EXCESS 8.1 mmol/L; ABG HCO3 32.3 mmol/L; ABG PCO2 43.7 mmHg (35.0-45.0); ABG PH 7.486 (7.350-7.450); ABG PO2 127.6 mmHg (75.0-100.0); ABG SITE RIGHT RADIAL; ABG TOTAL HEMOGLOBIN 9.4 G/dL (13.5-18.0); MetHb 0.2 % (0.0-1.5); O2Hb 97.8 % (94.0-97.0); VENT MODE VENT - A/C; VT, ABG 550 mL
--- NOTE | 2020-01-22 07:30 | NUR ---
PT. RECEIVED DURING ROUND WITH NOC. SHIFT CH. NURSE YELLING VERY ANGRY GETTING NAKED ALL SOILED WITH STOOL AND SMEARING SURROUNDINGS WITH HIS OWN STOOL AND SIDE WAYS ON BED ,CH. NURSE ASKED SALES TRADER TO STAY WITH PT. AND SHE TOGETHER WITH ANOTHER SALES TRADER SLOWLY WITH A LOT OF CUEING IN A CALMED MANNER STARTED LITTLE BY LITTLE CLEANING PT. HE ALLOWED THEM D/T HIS YELLING AND HIS FACE SHOWED ANGER.RESERVATIONS SALES SUPERVISOR AWARE,GRAND DTR. PLASCENCIA AWARE THAT PT. AT RISK OF HURTING HIMSELF D/T PT'S ANGER MAKES HARD FOR NURSES TO APPROACH AND THE LANGUAGE BARRIER TOO.PER LVNS AND OBSERVATION PT. WAS NOT ATTEMPTING TO HURT OR FIGHT THEM JUST YELLING WITH ANGER AND INTERFERING WITH CARE .AFTER RESERVATIONS SALES SUPERVISOR HOMA SPOKE TO GRAND DTR. PLASCENCIA SHE GAVE CONSENT BY PHONE TO 2 NURSES TO START VALPROIC ACID .
[2020-01-22] MEDS: LEVALBUTEROL HCL NEB 0.63 MG/3 ML NEBU NEB SCH ×3 (07:38→22:30)
[2020-01-22] MEDS: ACETYLCYSTEINE 20% 800 MG/4 ML VIAL INH SCH ×3 (07:38→22:30)
--- NOTE | 2020-01-22 07:38 | NUR ---
Patient received in stable respiratory condition on HT-50 vent with current MD ordered vent settings. All alarms on and audible, Ambubag and spare trach at bedside. Airway is patent and secured. Suctioned PRN. Will continue to monitor.
[2020-01-22] MEDS: QUETIAPINE FUMARATE 25 MG TABLET GT PRN ×2 (08:00→12:08)
[2020-01-22] MEDS: QUETIAPINE FUMARATE 25 MG TABLET GT SCH (08:07)
[2020-01-22 08:14] VITALS: BP 127/80
--- NOTE | 2020-01-22 08:30 | NUR ---
Continuing frequent room visits pt is more in a calm mood but continue to talkative mood in his language. Assisted DRAY TRUCK DRIVER bed bath given and repositioned pt. was able to follow simple commands by helping turning in bed. 0841 Administer Valproic acid as ordered via gt. Pt continue in a talkative mood.
[2020-01-22] MEDS: VALPROIC ACID 250 MG/5 ML LIQUID UDC GT SCH ×3 (08:41→17:25)
[2020-01-22] MEDS: METOPROLOL TARTRATE 25 MG TABLET GT SCH ×2 (08:42→21:02)
[2020-01-22] MEDS: ZINC SULFATE 220 MG CAPSULE GT SCH (08:43)
--- NOTE | 2020-01-22 08:57 | NUR ---
ALSO SHE CONSENTED TO DECREASE ATIVAN (SHE REQUESTED THAT) AND GAVE CONSENT TO 2 NURSES BY PHONE.
[2020-01-22] MEDS: HYDROGEN PEROXIDE 3% 118 ML BOTTLE TP SCH ×2 (09:00→19:00)
[2020-01-22] MEDS: NEOMY/BACITRAC/POLYMI OINT 28.35 GM TUBE TOP SCH (09:00)
[2020-01-22] MEDS: VITAMINS A AND D OINT TP SCH ×2 (09:00→21:02)
[2020-01-22] MEDS: COD LIVER OIL/ZINC OXIDE OINT 113 GM TUBE TP SCH ×2 (09:00→21:02)
[2020-01-22] MEDS: COD LIVER OIL/ZINC OXIDE OINT 113 GM TUBE TOP SCH ×4 (09:00→21:02)
--- NOTE | 2020-01-22 12:00 | NUR ---
Assisted with video chat with pt's personal cell phone with Jenae, granddaughter. Continue making frequent rounds
--- NOTE | 2020-01-22 15:29 | NUR ---
Patient seen by Dr. Hernandez on 01/21/2020 for his initial eye exam. Please see optometry notes in patient's chart for details.
--- NOTE | 2020-01-22 15:38 | NUR ---
KASI met with patient's granddaughter Jenae in the hospital lobby. Jenae had brought in the admission paperwork, after reviewing and signing them. Included in this paperwork were: Conditions of Admission, Patient Rights Acknowledgement, , Documentation of Preferred Intensity of Care, Voluntary Prior Express Consent Form, Race and Ethnicity Patient Self-Identification, and the [facility] Agreement. KASI will file these forms in patient's chart. KASI informed Jenae that KASI will then mail Jenae a copy of the forms for her records. Jenae expressed agreement.
--- NOTE | 2020-01-22 18:46 | NUR ---
NO A/R TO FLU VACCINE ,AFEBRILE.
--- NOTE | 2020-01-22 21:50 | NUR ---
Patient's family face timed with the patient, patient in no distress.
[2020-01-22] MEDS: LORAZEPAM 0.5 MG TABLET GT PRN (21:57)
--- NOTE | 2020-01-22 22:00 | NUR ---
Patient was agitated, keeps kicking his top sheet to the floor is restless, suctioned and noted with very thick secretions, lavaged and suctioned patient tolerated procedure well, 02sat is 96%, connected to vent, kept clean and comfortable.
[2020-01-22 22:33] VITALS: BP 124/81
--- NOTE | 2020-01-22 22:58 | NUR ---
Afebrile, no adverse reactions noted from the flu vaccine.
[2020-01-23] MEDS: PROTEIN SUPPLEMENT (PROSTAT) 30 ML LIQUID GT SCH ×4 (00:09→17:52)
[2020-01-23] MEDS: GLUCERNA 1.2 1000ML LIQUID GT PRN (01:21)
[2020-01-23] MEDS: PANTOPRAZOLE ORAL SUSPENSION 40 MG SUSPDR.PKT GT SCH (05:59)
[2020-01-23] MEDS: ASCORBIC ACID 500 MG TABLET GT SCH (06:00)
[2020-01-23] MEDS: LEVALBUTEROL HCL NEB 0.63 MG/3 ML NEBU NEB SCH ×3 (07:10→23:21)
[2020-01-23] MEDS: ACETYLCYSTEINE 20% 800 MG/4 ML VIAL INH SCH ×3 (07:10→23:21)
--- NOTE | 2020-01-23 07:30 | NUR ---
PT. IS AWAKE AT THIS TIME TALKING IN HIS [place] LANGUAGE,FREQUENT VISUAL CHECKS DONE.
[2020-01-23 07:44] VITALS: BP 120/82
[2020-01-23] MEDS: VALPROIC ACID 250 MG/5 ML LIQUID UDC GT SCH ×3 (08:19→17:52)
[2020-01-23] MEDS: ZINC SULFATE 220 MG CAPSULE GT SCH (08:20)
[2020-01-23] MEDS: COD LIVER OIL/ZINC OXIDE OINT 113 GM TUBE TOP SCH ×4 (08:20→21:29)
[2020-01-23] MEDS: METOPROLOL TARTRATE 25 MG TABLET GT SCH ×2 (08:20→21:29)
[2020-01-23] MEDS: LORAZEPAM 0.5 MG TABLET GT PRN (08:29)
--- NOTE | 2020-01-23 08:45 | NUR ---
Noted pt sliding down in bed with right leg on top of bed rail. Repositioned with other staff a coupled of different events. Pt was anxious m/b restless talking in his choct[place] language and pointing to walker. Staff try to calm him down and pulled him up in bed. Explained to him that he was not able to get out of bed. Ativan 0.5 mg given via gt at this time.Continue making frequent room visits.
[2020-01-23] MEDS: VITAMINS A AND D OINT TP SCH ×2 (09:00→21:29)
[2020-01-23] MEDS: COD LIVER OIL/ZINC OXIDE OINT 113 GM TUBE TP SCH ×2 (09:00→21:29)
[2020-01-23] MEDS: NEOMY/BACITRAC/POLYMI OINT 28.35 GM TUBE TOP SCH (09:00)
--- NOTE | 2020-01-23 09:00 | NUR ---
PT'S GRAND DTR. WAS CALLED TO IF POSSIBLE BRING MAGAZINES OR NEWS PAPERS IN HIS [place] LANGUAGE OR SOMETHING ELSE THAT SHE KNOWS THAT WILL ENTERTAIN HIM AND THAT HE LIKES SO HE DOES NOT GET BORED BECAUSE HE DOES NOT LIKE T.V WITH SPANISH CHANNEL ,HE KEEPS SHOWING WITH HIS HAND TO TURN IT OFF.FREQUEN VISUAL CHECKS WILL BE DONE FOR PT'S COMFORT AND SAFETY.
[2020-01-23] MEDS: HYDROGEN PEROXIDE 3% 118 ML BOTTLE TP SCH ×2 (09:30→21:00)
--- NOTE | 2020-01-23 10:18 | NUR ---
PT. WAS REPOSITIONED ON BED BECAUSE HE WAS SLOWLY SLIDING DOWN ON BED.,PT. ABLE TO PUSH BED CONTROL BUTTON TO PLACE BED UP AND DOWN TO MAKE HIMSELF COMFORTABLE.
--- NOTE | 2020-01-23 10:40 | NUR ---
PT. ENJOYED TROWING BACK AND FORTH AN INFLATED LATEX GLOVE WITH THE NURSE SMILING ALL TIMES AND PONTING AT HIS LEFT UPPER IMPAIRED EXTREMITY WITH THE INFLATED GLOVE THAT HE WANTED TO DO THE SAME WITH HIS LEFT UPPER IMPAIRED EXTREMITY.ALSO DURING THE MORNING CARE HE INDICATED TO SOCIAL MEDIA COMMUNITY MANAGER NOT TO SHAVE HIM PUSHING AWAY GENTLY SOCIAL MEDIA COMMUNITY MANAGER'S HAND HOLDING THE RAZOR AND POINTING AT HIS FACE THAT HE LIKES HIS MCGRATH LONG.
--- NOTE | 2020-01-23 11:01 | NUR ---
INTERNET CONSULTANT WAS BY THE DOOR OBSERVING PT. SAFETY MEASURE TOO AND ENROLLMENT REPRESENTATIVE AND SCHOOL BUS INSPECTOR WELL CH. NURSE MAKING FREQUENT VISUAL ROUNDS TO MONITOR PT.
--- NOTE | 2020-01-23 11:30 | NUR ---
GRAND DTR. PLASCENCIA ASKED NURSE TO GIVE HIM HIS CELL PHONE AND HE HELD IT WITH RT HAND FOR A WHILE HE KEPT TALKING WITH A VERY LOUD VOICE WITH HER BUT THEN LATER HE PLACED IT BETWEEN SIDE RAIL AND MATTRESS AND GRAND DTR. PLASCENCIA CALLED TO THE NURSING STATION AND ASKED NURSE TO AGAIN GIVE HIM HIS CELL PHONE IN THE HAND AND AGAIN HE KEPT TALKING WITH VERY LOUD VOICE TO HER AND LATER ON HE FELL ASLEEP AND PLACED HIS CELLPHONE BEHIND HIS PILLOW.
--- NOTE | 2020-01-23 13:00 | NUR ---
OBSERVED PT.AWAKE AND NO YELLING OBSERVED.
--- NOTE | 2020-01-23 15:00 | NUR ---
PT. OBSERVED AWAKE TALKING BUT NOT LOUD OR ANGRY.WILL CONT. FREQUENT VISUAL CHECKS.
--- NOTE | 2020-01-23 18:02 | NUR ---
NO A/R TO FLU VACCINE ,AFEBRILE.
--- NOTE | 2020-01-23 20:00 | NUR ---
Patient is sleeping, connected to vent on prescribed settings, no signs of any distress noted, kept clean and comfortable, will continue monitor.
--- NOTE | 2020-01-23 21:56 | NUR ---
Afebrile, no adverse reactions from flu vaccine, no redness on injection site.
--- NOTE | 2020-01-23 21:59 | NUR ---
Patient is still sleeping at this time, no signs of any distress noted, frequent visual checks done, will continue monitor.
[2020-01-23 22:28] VITALS: BP 109/78
[2020-01-24] MEDS: PROTEIN SUPPLEMENT (PROSTAT) 30 ML LIQUID GT SCH ×4 (00:28→17:02)
[2020-01-24] MEDS: LORAZEPAM 0.5 MG TABLET GT PRN ×3 (02:45→20:43)
[2020-01-24] MEDS: GLUCERNA 1.2 1000ML LIQUID GT PRN (02:46)
[2020-01-24] MEDS: PANTOPRAZOLE ORAL SUSPENSION 40 MG SUSPDR.PKT GT SCH (06:36)
[2020-01-24] MEDS: ASCORBIC ACID 500 MG TABLET GT SCH (06:36)
[2020-01-24] MEDS: LEVALBUTEROL HCL NEB 0.63 MG/3 ML NEBU NEB SCH ×3 (07:15→22:30)
[2020-01-24] MEDS: ACETYLCYSTEINE 20% 800 MG/4 ML VIAL INH SCH ×3 (07:15→22:30)
[2020-01-24 07:49] VITALS: BP 120/67
[2020-01-24] MEDS: VALPROIC ACID 250 MG/5 ML LIQUID UDC GT SCH ×3 (08:13→16:33)
[2020-01-24] MEDS: NEOMY/BACITRAC/POLYMI OINT 28.35 GM TUBE TOP SCH (08:14)
[2020-01-24] MEDS: METOPROLOL TARTRATE 25 MG TABLET GT SCH ×2 (08:14→20:55)
[2020-01-24] MEDS: COD LIVER OIL/ZINC OXIDE OINT 113 GM TUBE TP SCH ×2 (08:14→20:56)
[2020-01-24] MEDS: VITAMINS A AND D OINT TP SCH ×2 (08:14→20:57)
[2020-01-24] MEDS: ZINC SULFATE 220 MG CAPSULE GT SCH (08:14)
[2020-01-24] MEDS: COD LIVER OIL/ZINC OXIDE OINT 113 GM TUBE TOP SCH ×4 (08:14→20:56)
[2020-01-24] MEDS: HYDROGEN PEROXIDE 3% 118 ML BOTTLE TP SCH ×2 (08:50→19:01)
[2020-01-24] MEDS: HYDROCODONE/APAP 10-325 MG TABLET GT PRN ×2 (12:55→20:43)
--- NOTE | 2020-01-24 13:52 | NUR ---
NO A/R TO FLU VACCINE ,AFEBRILE.
--- NOTE | 2020-01-24 19:36 | NUR ---
FREQUENT VISUAL CHECKS DONE BY NURSING STAFF,VICE PRESIDENT OF BUSINESS DEVELOPMENT AT THE DOOR TOO FOR SAFETY AND COMFORT ATTENDING NEEDS IN ADVANCE .PT'S OWN TELEPHONE ON REACH.
[2020-01-24 22:38] VITALS: BP 98/68
[2020-01-25] MEDS: PROTEIN SUPPLEMENT (PROSTAT) 30 ML LIQUID GT SCH ×4 (00:38→17:59)
[2020-01-25] MEDS: LORAZEPAM 0.5 MG TABLET GT PRN (04:39)
[2020-01-25] MEDS: GLUCERNA 1.2 1000ML LIQUID GT PRN (04:40)
[2020-01-25] MEDS: HYDROCODONE/APAP 10-325 MG TABLET GT PRN (04:40)
[2020-01-25] MEDS: ASCORBIC ACID 500 MG TABLET GT SCH (05:51)
[2020-01-25] MEDS: PANTOPRAZOLE ORAL SUSPENSION 40 MG SUSPDR.PKT GT SCH (05:51)
--- NOTE | 2020-01-25 06:48 | NUR ---
Pt was observed with restlessness/anxiety, pt was able to communicate with the family, attended to pt's needs, family able to interpret and emotionally comfort patient. Frequent visual checks, kept pt safe, bed in lowest position, medicated as needed for anxiety and pain with relief.
--- NOTE | 2020-01-25 07:11 | NUR ---
No A/R to flu vaccine, afebrile.
[2020-01-25] MEDS: LEVALBUTEROL HCL NEB 0.63 MG/3 ML NEBU NEB SCH ×3 (07:30→23:56)
[2020-01-25] MEDS: ACETYLCYSTEINE 20% 800 MG/4 ML VIAL INH SCH ×3 (07:30→23:56)
[2020-01-25] MEDS: HYDROGEN PEROXIDE 3% 118 ML BOTTLE TP SCH ×2 (09:08→21:35)
[2020-01-25] MEDS: VALPROIC ACID 250 MG/5 ML LIQUID UDC GT SCH ×3 (09:26→17:59)
[2020-01-25] MEDS: METOPROLOL TARTRATE 25 MG TABLET GT SCH ×2 (09:26→21:43)
[2020-01-25] MEDS: COD LIVER OIL/ZINC OXIDE OINT 113 GM TUBE TP SCH ×2 (09:27→21:43)
[2020-01-25] MEDS: NEOMY/BACITRAC/POLYMI OINT 28.35 GM TUBE TOP SCH (09:27)
[2020-01-25] MEDS: VITAMINS A AND D OINT TP SCH ×2 (09:27→21:43)
[2020-01-25] MEDS: COD LIVER OIL/ZINC OXIDE OINT 113 GM TUBE TOP SCH ×4 (09:27→21:43)
[2020-01-25] MEDS: ZINC SULFATE 220 MG CAPSULE GT SCH (09:27)
--- NOTE | 2020-01-25 13:30 | NUR ---
SEEN BY ANDERSON Keyes AND WITH NNO.PT. MONITORED WITH FREQUENT VISUAL CHECKS FOR SAFETY AND COMFORT AND ALL NEEDS ATTENDED IN ADVANCE.
[2020-01-25 20:08] VITALS: BP 109/72
[2020-01-26] MEDS: PROTEIN SUPPLEMENT (PROSTAT) 30 ML LIQUID GT SCH ×4 (00:57→17:48)
[2020-01-26] MEDS: LORAZEPAM 0.5 MG TABLET GT PRN ×3 (01:10→20:15)
[2020-01-26] MEDS: GLUCERNA 1.2 1000ML LIQUID GT PRN (05:22)
[2020-01-26] MEDS: PANTOPRAZOLE ORAL SUSPENSION 40 MG SUSPDR.PKT GT SCH (05:26)
[2020-01-26] MEDS: ASCORBIC ACID 500 MG TABLET GT SCH (05:26)
[2020-01-26] MEDS: HYDROCODONE/APAP 10-325 MG TABLET GT PRN (05:43)
[2020-01-26 07:27] VITALS: BP 121/82
[2020-01-26] MEDS: LEVALBUTEROL HCL NEB 0.63 MG/3 ML NEBU NEB SCH ×3 (07:36→22:58)
[2020-01-26] MEDS: ACETYLCYSTEINE 20% 800 MG/4 ML VIAL INH SCH ×3 (07:36→22:58)
[2020-01-26] MEDS: COD LIVER OIL/ZINC OXIDE OINT 113 GM TUBE TOP SCH ×4 (08:50→20:23)
[2020-01-26] MEDS: ZINC SULFATE 220 MG CAPSULE GT SCH (08:50)
[2020-01-26] MEDS: VITAMINS A AND D OINT TP SCH ×2 (08:51→20:23)
[2020-01-26] MEDS: COD LIVER OIL/ZINC OXIDE OINT 113 GM TUBE TP SCH ×2 (08:51→20:23)
[2020-01-26] MEDS: NEOMY/BACITRAC/POLYMI OINT 28.35 GM TUBE TOP SCH (08:51)
[2020-01-26] MEDS: VALPROIC ACID 250 MG/5 ML LIQUID UDC GT SCH ×3 (08:52→16:45)
[2020-01-26] MEDS: METOPROLOL TARTRATE 25 MG TABLET GT SCH ×2 (08:55→20:20)
[2020-01-26] MEDS: HYDROGEN PEROXIDE 3% 118 ML BOTTLE TP SCH ×2 (09:27→21:22)
[2020-01-26 12:10] VITALS: BP 129/84
--- NOTE | 2020-01-26 16:05 | NUR ---
Jenae Pt's granddaughter aware pt was transfer to Room 418 ,closer to the nursing station.
--- NOTE | 2020-01-26 16:34 | NUR ---
INTERDISCIPLINARY PLAN OF CARE CONFERENCE was held today. Patient's granddaughter Jenae participated in the meeting through speaker phone. Dr. Faye and the Interdisciplinary Team reviewed the current plan of care in detail. RN reported on patient's medical condition, and treatment plan implemented by the psychiatrist. See RN IDT conference notes. Pharmacy discussed some of the recent changes in medication. See all disciplines IDT notes and physician's progress notes for additional details. Jenae's questions were addressed by Dr. Faye and the IDT team, and Jenae expressed understanding and agreement with the current plan of care. Addendum: 01/26/20 at 1636 by VIVIEN VILLASEÑOR PT discussed current treatment plan and progress.
[2020-01-26] MEDS: ONDANSETRON ODT 4 MG TAB.RAPDIS GT PRN (20:00)
--- NOTE | 2020-01-26 20:30 | NUR ---
PT AWAKE RESPONSIVE AND TALK TO FAMILY BY CELL PHONE IN HIS [place] LANGUAGE .PT WAS AGITATION M/B RESTLESS EPISODE OF YELLING TO FAMILY ATIVAN 0.5 MG WAS GIVEN VIA GT BY NURSE AT THIS TIME.CONTINUE MONITOR FOR BEHAVIOR PROBLEM KEEP CLEAN AND COMFORTABLE.
[2020-01-26 20:31] VITALS: BP 134/80
[2020-01-27] MEDS: HYDROCODONE/APAP 10-325 MG TABLET GT PRN (01:22)
[2020-01-27] MEDS: ONDANSETRON ODT 4 MG TAB.RAPDIS GT PRN ×2 (04:30→11:44)
--- NOTE | 2020-01-27 06:00 | NUR ---
PT AWAKE RESPONSIVE AM CARE WAS GIVEN BY SOCK BOARDER NOTED. PT STARTED HAS AGITATION YELLING IN HIS [place] LANGUAGE COMPLAIN OF NAUSEA NO VOMITING ZOFRAN 4 MG VIA GT FOR N/V WAS GIVEN BY NURSE.PT STILL COMPLAIN OF NAUSEA CONTINUE MONITOR FOR N/V KEEP CLEAN AND COMFORTABLE.
[2020-01-27] MEDS: LORAZEPAM 0.5 MG TABLET GT PRN (06:15)
[2020-01-27] MEDS: ASCORBIC ACID 500 MG TABLET GT SCH (06:31)
[2020-01-27] MEDS: PROTEIN SUPPLEMENT (PROSTAT) 30 ML LIQUID GT SCH ×4 (06:31→17:02)
[2020-01-27] MEDS: PANTOPRAZOLE ORAL SUSPENSION 40 MG SUSPDR.PKT GT SCH (06:31)
--- NOTE | 2020-01-27 06:36 | NUR ---
PT STILL HAS AGITATION M/B RESTLESS COMPLAIN OF NAUSEA NO VOMITING AND COMPLAIN OF PALPITATION V/S WAS CHECKING TEMP=98 MI=425/74 MMHG P=69/MIN.ATIVAN 0.5 MG VIA GT ORDERED.PT STILL HAS RESTLESS AND COMPLAIN HE HAS EPISODE OF CHEST PAIN NOTED.EKG STARTED ORDERED AND CONTINUE MONITOR FOR CHEST PAIN.O2SAT 98%.NOTED.
[2020-01-27] MEDS: LEVALBUTEROL HCL NEB 0.63 MG/3 ML NEBU NEB SCH ×3 (07:23→23:33)
[2020-01-27] MEDS: ACETYLCYSTEINE 20% 800 MG/4 ML VIAL INH SCH ×3 (07:24→23:33)
[2020-01-27] MEDS: HYDROGEN PEROXIDE 3% 118 ML BOTTLE TP SCH ×2 (07:24→21:36)
[2020-01-27 07:34] VITALS: BP 120/70
[2020-01-27] MEDS: METOPROLOL TARTRATE 25 MG TABLET GT SCH ×2 (08:29→21:00)
[2020-01-27] MEDS: VALPROIC ACID 250 MG/5 ML LIQUID UDC GT SCH ×3 (08:29→17:02)
[2020-01-27] MEDS: COD LIVER OIL/ZINC OXIDE OINT 113 GM TUBE TP SCH ×2 (08:30→21:00)
[2020-01-27] MEDS: COD LIVER OIL/ZINC OXIDE OINT 113 GM TUBE TOP SCH ×4 (08:30→21:00)
[2020-01-27] MEDS: ZINC SULFATE 220 MG CAPSULE GT SCH (08:30)
[2020-01-27] MEDS: NEOMY/BACITRAC/POLYMI OINT 28.35 GM TUBE TOP SCH (08:30)
[2020-01-27] MEDS: VITAMINS A AND D OINT TP SCH ×2 (08:31→21:00)
--- NOTE | 2020-01-27 11:00 | NUR ---
Seen and examined by Dr Ocasio ,aware pt still has episodes of agitation ,new orders noted.
[2020-01-27] MEDS: GLUCERNA 1.2 1000ML LIQUID GT PRN (13:47)
[2020-01-27 19:39] VITALS: BP 100/52
[2020-01-28] MEDS: PROTEIN SUPPLEMENT (PROSTAT) 30 ML LIQUID GT SCH ×4 (06:04→17:39)
[2020-01-28] MEDS: PANTOPRAZOLE ORAL SUSPENSION 40 MG SUSPDR.PKT GT SCH (06:04)
[2020-01-28] MEDS: ASCORBIC ACID 500 MG TABLET GT SCH (06:04)
[2020-01-28 07:06] LABS: BASOPHILS # (AUTO) 0.1 K/uL (0.0-8.0); BASOPHILS % (AUTO) 1.2 % (0.0-2.0); EOSINOPHILS # (AUTO) 0.2 K/uL (0.0-0.7); EOSINOPHILS % (AUTO) 3.9 % (0.0-7.0); HEMATOCRIT 30.5 % (36.7-47.1); LYMPHOCYTES % (AUTO) 16.8 % (20.5-51.5); MEAN CORPUSCULAR HEMOGLOBIN 29.5 uug (23.8-33.4); MEAN CORPUSCULAR HGB CONC 33 g/dL (32.5-36.3); MEAN CORPUSCULAR VOLUME 90.1 fL (73.0-96.2); MONOCYTES # (AUTO) 0.6 K/uL (2.0-10.0); MONOCYTES % (AUTO) 11.4 % (0.0-11.0); NEUTROPHILS # (AUTO) 3.8 K/uL (1.8-8.9); NEUTROPHILS % (AUTO) 66.7 % (38.5-71.5); PLATELET COUNT (AUTO) 191 K/uL (152-348); RED BLOOD CELL COUNT(AUTO) 3.39 MIL/uL (4.06-5.63); WHITE BLOOD COUNT (AUTO) 5.7 K/uL (3.6-10.2)
[2020-01-28 07:09] LABS: BILIRUBIN,TOTAL 0.3 mg/dL (0.2-1.0); TOTAL PROTEIN, SERUM 6.5 g/dL (6.4-8.2)
[2020-01-28 07:20] VITALS: BP 114/70
[2020-01-28] MEDS: LEVALBUTEROL HCL NEB 0.63 MG/3 ML NEBU NEB SCH ×3 (07:45→23:15)
[2020-01-28] MEDS: ACETYLCYSTEINE 20% 800 MG/4 ML VIAL INH SCH ×3 (07:45→23:16)
[2020-01-28] MEDS: VALPROIC ACID 250 MG/5 ML LIQUID UDC GT SCH ×3 (09:09→17:39)
[2020-01-28] MEDS: METOPROLOL TARTRATE 25 MG TABLET GT SCH ×2 (09:11→21:00)
[2020-01-28] MEDS: ZINC SULFATE 220 MG CAPSULE GT SCH (09:11)
[2020-01-28] MEDS: COD LIVER OIL/ZINC OXIDE OINT 113 GM TUBE TP SCH ×2 (09:12→21:00)
[2020-01-28] MEDS: VITAMINS A AND D OINT TP SCH ×2 (09:12→21:00)
[2020-01-28] MEDS: NEOMY/BACITRAC/POLYMI OINT 28.35 GM TUBE TOP SCH (09:12)
[2020-01-28] MEDS: COD LIVER OIL/ZINC OXIDE OINT 113 GM TUBE TOP SCH ×4 (09:12→21:00)
[2020-01-28] MEDS: HYDROGEN PEROXIDE 3% 118 ML BOTTLE TP SCH ×2 (09:26→21:28)
[2020-01-28] MEDS: GLUCERNA 1.2 1000ML LIQUID GT PRN (14:24)
[2020-01-28 19:57] VITALS: BP 133/90
--- NOTE | 2020-01-28 21:23 | NUR ---
CALLED RESPONSIBLE DEMOCRAT, THAIS ON [phone] AND INFORMED HER OF POSSIBLE COVID-19 EXPOSURE ON THE SUBACUTE UNIT AND THE FOLLOW UP TESTING PLAN FOR THE NEXT 14 DAYS, MANDATED BY [facility] REGULATIONS. ALSO NOTIFIED THAIS THAT NURSING WILL CALL HER WITH THE RESULT IT BECOMES AVAILABLE. THAIS EXPRESSED UNDERSTANDING.
--- NOTE | 2020-01-28 22:14 | NUR ---
Seen a new order from Dr. Nesbitt to do urinalysis with culture, noted and carried out.
--- NOTE | 2020-01-29 01:20 | NUR ---
Patient is afebrile, No respiratory distress noted, 02 sat is 99%, will continue monitor.
[2020-01-29] MEDS: PROTEIN SUPPLEMENT (PROSTAT) 30 ML LIQUID GT SCH ×4 (05:04→17:20)
[2020-01-29] MEDS: ASCORBIC ACID 500 MG TABLET GT SCH (05:04)
[2020-01-29] MEDS: PANTOPRAZOLE ORAL SUSPENSION 40 MG SUSPDR.PKT GT SCH (05:04)
[2020-01-29] MEDS: LORAZEPAM 0.5 MG TABLET GT PRN ×2 (05:45→12:07)
[2020-01-29 06:30] LABS: *BILIRUBIN,URIN NEGATIVE (NEGATIVE); *BLOOD, URINE NEGATIVE (NEGATIVE); *CLARITY,URINE SLIGHTLY CLOUDY (CLEAR); *COLOR,URINE YELLOW (YELLOW); *KETONES,URINE NEGATIVE (NEGATIVE); *UROBILINOGEN,URINE 0.2 E.U./dl (NORMAL); LEUKOCYTE ESTERASE ,URINE NEGATIVE (NEGATIVE); NITRITE, URINE NEGATIVE (NEGATIVE); PH,URINE 8.5 (5.0-8.0); UGLUCOSE NEGATIVE (NEGATIVE)
[2020-01-29] MEDS: LEVALBUTEROL HCL NEB 0.63 MG/3 ML NEBU NEB SCH ×3 (07:26→22:52)
[2020-01-29] MEDS: ACETYLCYSTEINE 20% 800 MG/4 ML VIAL INH SCH ×3 (07:26→22:52)
[2020-01-29] MEDS: HYDROGEN PEROXIDE 3% 118 ML BOTTLE TP SCH ×2 (07:26→21:40)
[2020-01-29 08:15] VITALS: BP 116/77
[2020-01-29] MEDS: METOPROLOL TARTRATE 25 MG TABLET GT SCH ×2 (08:39→21:00)
[2020-01-29] MEDS: VALPROIC ACID 250 MG/5 ML LIQUID UDC GT SCH ×3 (08:39→17:20)
[2020-01-29] MEDS: NEOMY/BACITRAC/POLYMI OINT 28.35 GM TUBE TOP SCH (08:40)
[2020-01-29] MEDS: VITAMINS A AND D OINT TP SCH ×2 (08:40→21:00)
[2020-01-29] MEDS: COD LIVER OIL/ZINC OXIDE OINT 113 GM TUBE TOP SCH ×4 (08:40→21:00)
[2020-01-29] MEDS: COD LIVER OIL/ZINC OXIDE OINT 113 GM TUBE TP SCH ×2 (08:40→21:00)
[2020-01-29] MEDS: ZINC SULFATE 220 MG CAPSULE GT SCH (08:40)
--- NOTE | 2020-01-29 11:05 | NUR ---
Nursing requested assistance from this SW to speak with patient/translate. This SW speaks Libyan. SW arrived to patient's room with NOA Bhatia and LEROY Diallo. Patient presented with agitation, and was speaking loud. SW attempted to speak with the patient, and patient was responsive to this SW. It was observed that patient's bed sheets and blanket were wrapped up in a ball in the bottom corner of the bed, and patient stated that he wanted his blanket. Sriram and Imani stated that the AS400 PROGRAMMER's had just finished cleaning and changing the patient, and had placed the bed sheet and blanket over the patient, but that patient's agitation and kicking of his feet could have caused for the sheets and blanket to come off. NOA Bhatia placed the bed sheet and blanket back on the patient, and patient became less agitated. Patient then began asking this SW when his trach would be taken out, and this SW explained that per physician's instructions, the trach would need to remain for now for safety. Patient continued to ask the same questions, continuing to speak in a loud tone, and observed to be fidgety in bed. This SW repeated the same explanation several times, after which patient finally expressed understanding by stating "ok fine" in Libyan. SW asked if there were any other questions or concerns the patient had at this time, and patient stated "no". SW will continue to be available to the patient and to the interdisciplinary team, as needed.
--- NOTE | 2020-01-29 15:00 | NUR ---
nursing note: patient calling, upon entering room patient was pointing to the floor, noted patient had dropped eye glasses on the floor, when picked up right side of eye glass was broken, told patient i will put in bag and notify that he dropped glasses and are broken. charge nurse and drug abuse social worker notified about incident.
[2020-01-29] MEDS: GLUCERNA 1.2 1000ML LIQUID GT PRN (17:21)
[2020-01-29 19:51] LABS: RBC,URINE 0-3 /HPF (0-3)
[2020-01-29 19:52] LABS: BACTERIA,URINE FEW /HPF (NONE SEEN); CALCIUM OXALATE CRYSTALS,UR MANY /HPF (NONE SEEN); SQUAMOUS EPITHELIAL CELL,UR FEW /HPF (NONE SEEN); URINE AMORPHOUS PHOSPHATES MODERATE /HPF
[2020-01-29 20:08] VITALS: BP 101/66
[2020-01-30] MEDS: PROTEIN SUPPLEMENT (PROSTAT) 30 ML LIQUID GT SCH ×4 (00:11→17:21)
[2020-01-30] MEDS: PANTOPRAZOLE ORAL SUSPENSION 40 MG SUSPDR.PKT GT SCH (06:24)
[2020-01-30] MEDS: ASCORBIC ACID 500 MG TABLET GT SCH (06:24)
[2020-01-30] MEDS: ACETYLCYSTEINE 20% 800 MG/4 ML VIAL INH SCH ×3 (07:07→23:20)
[2020-01-30] MEDS: LEVALBUTEROL HCL NEB 0.63 MG/3 ML NEBU NEB SCH ×3 (07:07→23:20)
[2020-01-30 07:31] VITALS: BP 108/69
[2020-01-30] MEDS: VALPROIC ACID 250 MG/5 ML LIQUID UDC GT SCH ×3 (08:29→17:21)
[2020-01-30] MEDS: METOPROLOL TARTRATE 25 MG TABLET GT SCH ×2 (08:31→20:44)
[2020-01-30] MEDS: ZINC SULFATE 220 MG CAPSULE GT SCH (08:31)
[2020-01-30] MEDS: COD LIVER OIL/ZINC OXIDE OINT 113 GM TUBE TP SCH ×2 (08:32→20:45)
[2020-01-30] MEDS: VITAMINS A AND D OINT TP SCH ×2 (08:32→20:45)
[2020-01-30] MEDS: HYDROGEN PEROXIDE 3% 118 ML BOTTLE TP SCH ×2 (09:00→21:04)
--- NOTE | 2020-01-30 10:00 | NUR ---
Nursing note: patient screaming and agitated, when arrived at room patient was removing diaper, changed diaper and repositioned and cover with blankets as requested. patient call light, cell phone and glasses at bedside.
--- NOTE | 2020-01-30 10:15 | NUR ---
nursing notes: patient screaming and agitated, arrived at room, patient requesting cell phone. showed patient cell phone was at his side, patient pulled out phone charging cord out of extension cord and requesting to be plugged in again. plugged cord back in again and showed him that phone has green light and is charging his phone.
--- NOTE | 2020-01-30 10:20 | NUR ---
nursing note: patient screaming, pulled phone cord out of the wall. plugged cord back to wall. charge nurse made aware of patients agitation.
--- NOTE | 2020-01-30 10:45 | NUR ---
nursing note: patient screaming, patient requesting phone cord to be plugged backed in again. requesting call light, showed patient calling is right next to him within reach.
--- NOTE | 2020-01-30 11:30 | NUR ---
nursing notes: patient screaming, cleaned and repositioned patient, and re plugged phone gasoline truck operator as requested, call light within reach.
--- NOTE | 2020-01-30 12:00 | NUR ---
nursing note: patient screaming, RT at bedside, helped patient reconnect call light.
[2020-01-30] MEDS: LORAZEPAM 0.5 MG TABLET GT PRN (13:52)
[2020-01-30] MEDS: GLUCERNA 1.2 1000ML LIQUID GT PRN (13:52)
--- NOTE | 2020-01-30 14:00 | NUR ---
nursing notes patient given ativan, patient agitated and screaming, banging call light against bed siderail. charge nurse made aware.
--- NOTE | 2020-01-30 14:30 | NUR ---
nursing notes patient remains aggitated and screaming, cleaned and repositioned patient. patient requesting phone cellophaner to be plugged in again. will continue to monitor.
--- NOTE | 2020-01-30 14:45 | NUR ---
nursing notes patients granddaughter Jenae called, said patient just wants phone to be plugged to non linear editor because its not being charged, told granddaughter Jenae that phone has been charging all day and have been showing that its charging but patient keeps pulling it out of the extension constantly and we have been plugging it back in as he is requesting.
--- NOTE | 2020-01-30 15:20 | NUR ---
nursing notes: patient remains agitated and screaming, continues banging call light against siderail. charge nurse now at bedside. will continue to monitor.
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
--- NOTE | 2020-01-30 16:00 | NUR ---
Spoke to Dr Amarjit shaver,notified her regarding pt behavior,and family request to increase the Ativan,new orders noted and carried out.
--- NOTE | 2020-01-30 16:15 | NUR ---
Jennifer Rn,called to pt's Room and spoke to him in Georgian ,and try to find out what is causing him to be so agitated,all needs attended,Tv on channel 46 for Dominican speakers,call light at reach,cell phone at reach.
[2020-01-30] MEDS: LORAZEPAM 1 MG TABLET GT PRN (17:21)
--- NOTE | 2020-01-30 18:04 | NUR ---
Per Jenae's pt's granddaughter ,pt is requesting to eat orally and stop the enteral feeding,and request to be wean from the ventilator,will inform Dr Faye and Rickey on saturday. Addendum: 02/02/20 at 1141 by RONALDO DELGADO RN error in charting is not Dr Lang,primary physicians is Dr Garcia.
[2020-01-30 20:08] VITALS: BP 100/79
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
[2020-01-31] MEDS: ASCORBIC ACID 500 MG TABLET GT SCH (05:03)
[2020-01-31] MEDS: PROTEIN SUPPLEMENT (PROSTAT) 30 ML LIQUID GT SCH ×4 (05:03→18:02)
[2020-01-31] MEDS: PANTOPRAZOLE ORAL SUSPENSION 40 MG SUSPDR.PKT GT SCH (05:03)
--- NOTE | 2020-01-31 06:00 | NUR ---
PT AWAKE WAS YELLING SCREAMING AM CARE WAS GIVEN BY GEOCHEMIST.PT VERY AGITATED AND COMPLAIN OF CHEST PAIN WHEN HE STARTED AGITATED ATIVAN 1 MG WAS GIVEN VIA GT Q6 HRS PRN FOR AGITATION M/B RESTLESS.V/S STABLE CONTINUE MONITOR FOR AGITATION AND CHEST PAIN NO PALPITATION NOTED.
[2020-01-31] MEDS: LORAZEPAM 1 MG TABLET GT PRN ×2 (06:10→18:03)
[2020-01-31] MEDS: LEVALBUTEROL HCL NEB 0.63 MG/3 ML NEBU NEB SCH ×3 (07:40→22:30)
[2020-01-31] MEDS: ACETYLCYSTEINE 20% 800 MG/4 ML VIAL INH SCH ×3 (07:40→22:30)
[2020-01-31] MEDS: HYDROGEN PEROXIDE 3% 118 ML BOTTLE TP SCH ×2 (07:40→21:30)
[2020-01-31 07:49] VITALS: BP 122/83
[2020-01-31] MEDS: VALPROIC ACID 250 MG/5 ML LIQUID UDC GT SCH ×3 (09:10→17:00)
[2020-01-31] MEDS: VITAMINS A AND D OINT TP SCH ×2 (09:11→21:43)
[2020-01-31] MEDS: ZINC SULFATE 220 MG CAPSULE GT SCH (09:11)
[2020-01-31] MEDS: COD LIVER OIL/ZINC OXIDE OINT 113 GM TUBE TP SCH ×2 (09:11→21:43)
[2020-01-31] MEDS: METOPROLOL TARTRATE 25 MG TABLET GT SCH ×2 (09:11→21:42)
[2020-01-31] MEDS: GLUCERNA 1.2 1000ML LIQUID GT PRN (13:38)
--- NOTE | 2020-01-31 18:16 | NUR ---
Pt's vital signs wnl. pt. was sleeping in am but get agitated in the afternoon. Ativan 1mg given. Dr. Ocasio called pt. via zoom. No further order given. Spoke with the family (Jenae) and according to her pt was cold and he wanted HOB to be down a little bit. feeding was turned off for 30 mins. per family request. Will continue to monitor.
--- NOTE | 2020-01-31 19:44 | NUR ---
Received pt awake, on HT-50 ventilator with the following settings of AC-16, Vt-550, PEEP+5, FIO2-3LPM bleed-in, trached with Shiley#8 DCT trach, which is in the place and secure. No respiratory distress noted. Airway care done, pt responded to physical stimuli. HME changed. Resus. bag and back up trach at bedside. Vent and alarms checked and reset.
[2020-01-31 20:10] VITALS: BP 142/88
[2020-01-31] MEDS: HYDROCODONE/APAP 10-325 MG TABLET GT PRN (21:00)
[2020-02-01] MEDS: PROTEIN SUPPLEMENT (PROSTAT) 30 ML LIQUID GT SCH ×5 (00:09→23:50)
[2020-02-01] MEDS: ASCORBIC ACID 500 MG TABLET GT SCH (05:08)
[2020-02-01] MEDS: PANTOPRAZOLE ORAL SUSPENSION 40 MG SUSPDR.PKT GT SCH (05:08)
[2020-02-01 07:31] VITALS: BP 102/70
[2020-02-01] MEDS: LEVALBUTEROL HCL NEB 0.63 MG/3 ML NEBU NEB SCH ×3 (07:43→23:03)
[2020-02-01] MEDS: ACETYLCYSTEINE 20% 800 MG/4 ML VIAL INH SCH ×3 (07:43→23:03)
[2020-02-01] MEDS: VALPROIC ACID 250 MG/5 ML LIQUID UDC GT SCH ×3 (08:54→17:51)
[2020-02-01] MEDS: COD LIVER OIL/ZINC OXIDE OINT 113 GM TUBE TP SCH ×2 (08:55→20:29)
[2020-02-01] MEDS: ZINC SULFATE 220 MG CAPSULE GT SCH (08:55)
[2020-02-01] MEDS: VITAMINS A AND D OINT TP SCH ×2 (08:55→20:29)
[2020-02-01] MEDS: METOPROLOL TARTRATE 25 MG TABLET GT SCH ×2 (08:55→20:28)
[2020-02-01] MEDS: HYDROGEN PEROXIDE 3% 118 ML BOTTLE TP SCH ×2 (09:15→21:23)
[2020-02-01] MEDS: LORAZEPAM 1 MG TABLET GT PRN (14:38)
[2020-02-01] MEDS: GLUCERNA 1.2 1000ML LIQUID GT PRN (17:52)
[2020-02-01 20:18] VITALS: BP 103/51
[2020-02-02] MEDS: PROTEIN SUPPLEMENT (PROSTAT) 30 ML LIQUID GT SCH ×3 (06:22→17:48)
[2020-02-02] MEDS: ASCORBIC ACID 500 MG TABLET GT SCH (06:22)
[2020-02-02] MEDS: PANTOPRAZOLE ORAL SUSPENSION 40 MG SUSPDR.PKT GT SCH (06:22)
[2020-02-02] MEDS: HYDROGEN PEROXIDE 3% 118 ML BOTTLE TP SCH ×2 (07:35→21:00)
[2020-02-02] MEDS: ACETYLCYSTEINE 20% 800 MG/4 ML VIAL INH SCH ×3 (07:35→23:00)
[2020-02-02] MEDS: LEVALBUTEROL HCL NEB 0.63 MG/3 ML NEBU NEB SCH ×3 (07:35→23:00)
[2020-02-02 07:52] VITALS: BP 110/68
[2020-02-02] MEDS: VALPROIC ACID 250 MG/5 ML LIQUID UDC GT SCH ×3 (08:11→16:38)
[2020-02-02] MEDS: METOPROLOL TARTRATE 25 MG TABLET GT SCH ×2 (08:12→20:04)
[2020-02-02] MEDS: COD LIVER OIL/ZINC OXIDE OINT 113 GM TUBE TP SCH ×2 (08:12→20:05)
[2020-02-02] MEDS: VITAMINS A AND D OINT TP SCH ×2 (08:12→20:05)
[2020-02-02] MEDS: ZINC SULFATE 220 MG CAPSULE GT SCH (08:12)
[2020-02-02] MEDS: LORAZEPAM 1 MG TABLET GT PRN (14:27)
--- NOTE | 2020-02-02 16:40 | NUR ---
pt v/s wnl. No sob noted at this time. Sleeping in the am but get agitated in the afternoon. Ativan 1mg given. was able to talk to the family several times. Pt provided [employer] professor of surgery network services. was able to understand pt's concern thru that professor of surgery service. Pt was happy and satisfied and He said he liked that kind of phone. kept pt clean and comfortable with the call light and cell phone on the bed side.
--- NOTE | 2020-02-02 19:30 | NUR ---
Received pt.in bed awake ,vital signs B/P 104/44 , R 16 ,P 86 ,T 98.2 SAT 96%, no complain any pain or discomfort all needs attended ,call light within easy reach.
[2020-02-02 19:59] VITALS: BP 109/44
[2020-02-03] MEDS: PROTEIN SUPPLEMENT (PROSTAT) 30 ML LIQUID GT SCH ×5 (00:04→23:12)
[2020-02-03] MEDS: GLUCERNA 1.2 1000ML LIQUID GT PRN (00:05)
[2020-02-03] MEDS: PANTOPRAZOLE ORAL SUSPENSION 40 MG SUSPDR.PKT GT SCH (05:00)
[2020-02-03] MEDS: ASCORBIC ACID 500 MG TABLET GT SCH (05:00)
--- NOTE | 2020-02-03 06:30 | NUR ---
About 06:30 grand daughter Jenae called the nurse station and ask to go to patients room and help him with the remote control and turn on the TV I went to to the room and and I help patient to turn on the the TV.Family was with patient on the cell phone at all the time facing time and family said thank you,and the patient was continue talking to family in calm,the I was told by Jenae that his grand father wants to cough,I noted patient stable,no respiratory distress,but I tod Jenae Im going to call the RT to asses the patient,06:40 RT arrives and assessed the pt.
--- NOTE | 2020-02-03 06:40 | NUR ---
Called to Pt's bedside by LEROY Glover. Assessed Pt & he appeared fine. Pt was suctioned and lavaged. Airway patent. Scant amount of yellowish/white secretions. Tolerating vent settings well. Will continue to monitor.
[2020-02-03] MEDS: ACETYLCYSTEINE 20% 800 MG/4 ML VIAL INH SCH ×2 (07:10→22:58)
[2020-02-03] MEDS: LEVALBUTEROL HCL NEB 0.63 MG/3 ML NEBU NEB SCH ×2 (07:10→22:57)
--- NOTE | 2020-02-03 07:10 | NUR ---
no am med given pt transferred to ER
--- NOTE | 2020-02-03 07:20 | NUR ---
Arrived at Pt's bedside to recheck Pt's status while Rocío was checking Vitals. Pt seemed very agitated and was turning blue from coughing too much. SpO2 observed was 46% and HR >140 bpm. Increased FIO2 to 100% due to low SpO2 observed. Non-productive cough observed. Suctioned and lavaged Pt again. Scant secretions of yellowish/white color. Airway is Patent. Pt's family was on the phone, and asked them what he was trying to communicate. They stated that he was saying that he was having chest pressure. LEROY Rodriguez notified. Airway rechecked for patency. Pt being moved to Emergency room.
--- NOTE | 2020-02-03 07:25 | NUR ---
710- granddaughter called and told koreynurse, pt stated chest pressure, 147/109,hr 147, called dr mckinnon, didn't return a call, 718-called rapid response, chemical plant operator supervisor came and assessed pt, [phone]-transfer pt to e.r. for evaluation,739- dr mckinnon called back and notified pt's transfer to e.r. for evaluation.
[2020-02-03 07:42] VITALS: BP 137/109
[2020-02-03 07:49] VITALS: BP 147/109
[2020-02-03] MEDS ORDERED: ZINC57OI3 TP (07:53)
[2020-02-03] MEDS ORDERED: HYDR-4354 GT (07:53)
[2020-02-03] MEDS ORDERED: ACET-2154 GT (07:53)
[2020-02-03] MEDS ORDERED: BENZ1LOZ77 SL (07:53)
[2020-02-03] MEDS ORDERED: ASCO500P18 GT (07:53)
[2020-02-03] MEDS ORDERED: HYDR1SOL TOP (07:53)
[2020-02-03] MEDS ORDERED: LEVA0.6320 NEB (07:53)
[2020-02-03] MEDS ORDERED: ACET100V4 INH (07:53)
[2020-02-03] MEDS ORDERED: AMIN30LI2 GT (08:18)
[2020-02-03] MEDS ORDERED: VALP250S22 GT (08:18)
[2020-02-03] MEDS ORDERED: PETR113O TP (08:18)
[2020-02-03] MEDS ORDERED: MAGN400O6 GT (08:18)
[2020-02-03] MEDS ORDERED: METO25TA6 GT (08:18)
[2020-02-03] MEDS ORDERED: PANT40TA49 GT (08:18)
[2020-02-03] MEDS ORDERED: ONDA4TAB5 GT (08:18)
[2020-02-03] MEDS ORDERED: PROP50TA3 GT (08:18)
[2020-02-03] MEDS ORDERED: HYDR-4075 GT (08:18)
[2020-02-03] MEDS ORDERED: ZINC1CAP2 GT (08:18)
[2020-02-03] MEDS ORDERED: MAG355OR18 GT (08:18)
[2020-02-03] MEDS ORDERED: LORA-259 GT (08:18)
[2020-02-03] MEDS: VALPROIC ACID 250 MG/5 ML LIQUID UDC GT SCH ×3 (09:00→17:00)
[2020-02-03] MEDS: ZINC SULFATE 220 MG CAPSULE GT SCH (09:00)
--- NOTE | 2020-02-03 12:54 | NUR ---
Pt Back from Er ,report received by Diana Fatima,pt was cardiac evaluated for chest pain,Ekg and labs test done in Er,no complaints of chest pain at this time B/p 123/81,p 93,F102 100 %,R18,t 98.6.Jenae pt. granddaughter notified .
--- NOTE | 2020-02-03 16:00 | NUR ---
Spoke to Dr Faye regarding weaning parameters ordered for this morning. Dr Faye said to continue them Tomorrow morning. NOA Davey aware. Will inform RT staff.
--- NOTE | 2020-02-03 16:30 | NUR ---
Dr Ok Rodriguez was notified ,the pt is back from ER,no complaints of chest pain,no f/u orders at this time,continue observe the patient for any difficulty breathing and chest pain.
--- NOTE | 2020-02-03 17:10 | NUR ---
Kazeon phone was used with patient Kazakh physician obstetrician.. Patient was reposition and has no c/o any chest pain. no SOB
[2020-02-03 19:46] VITALS: BP 112/48
[2020-02-03] MEDS: COD LIVER OIL/ZINC OXIDE OINT 113 GM TUBE TP SCH (21:00)
[2020-02-03] MEDS: METOPROLOL TARTRATE 25 MG TABLET GT SCH (21:00)
[2020-02-03] MEDS: VITAMINS A AND D OINT TP SCH (21:00)
[2020-02-03] MEDS: HYDROGEN PEROXIDE 3% 118 ML BOTTLE TP SCH (21:24)
[2020-02-04] MEDS: LORAZEPAM 1 MG TABLET GT PRN ×2 (02:03→22:51)
--- NOTE | 2020-02-04 02:38 | NUR ---
Ativan prn given at 0203h for anxiety and restlessness. Pt in no acute respiratory distress. Pt stable and will continue to monitor.
[2020-02-04] MEDS: ASCORBIC ACID 500 MG TABLET GT SCH (05:26)
[2020-02-04] MEDS: PROTEIN SUPPLEMENT (PROSTAT) 30 ML LIQUID GT SCH ×3 (05:26→17:21)
[2020-02-04] MEDS: PANTOPRAZOLE ORAL SUSPENSION 40 MG SUSPDR.PKT GT SCH (05:26)
--- NOTE | 2020-02-04 06:30 | NUR ---
granddaughter,herbert called and notified pt had bloody secretion small amount, called respitory therapist and he took care of it, pt was anxious, ativan given [id number] and fall a sleep at o330, no further distress observed.
[2020-02-04 06:54] LABS: BASOPHILS # (AUTO) 0.1 K/uL (0.0-8.0); BASOPHILS % (AUTO) 0.9 % (0.0-2.0); EOSINOPHILS # (AUTO) 0.1 K/uL (0.0-0.7); EOSINOPHILS % (AUTO) 1.1 % (0.0-7.0); HEMATOCRIT 26.6 % (36.7-47.1); LYMPHOCYTES # (AUTO) 1.2 K/uL (20.0-40.0); LYMPHOCYTES % (AUTO) 15.6 % (20.5-51.5); MEAN CORPUSCULAR HEMOGLOBIN 30.2 uug (23.8-33.4); MEAN CORPUSCULAR HGB CONC 34 g/dL (32.5-36.3); MEAN CORPUSCULAR VOLUME 89.8 fL (73.0-96.2); MONOCYTES # (AUTO) 0.8 K/uL (2.0-10.0); MONOCYTES % (AUTO) 11.4 % (0.0-11.0); NEUTROPHILS # (AUTO) 5.3 K/uL (1.8-8.9); PLATELET COUNT (AUTO) 177 K/uL (152-348); RED BLOOD CELL COUNT(AUTO) 2.97 MIL/uL (4.06-5.63); WHITE BLOOD COUNT (AUTO) 7.4 K/uL (3.6-10.2)
[2020-02-04 07:00] LABS: BILIRUBIN,TOTAL 0.3 mg/dL (0.2-1.0); CREATININE 0.8 mg/dL (0.6-1.3); POTASSIUM 4.2 mmol/L (3.5-5.1); TOTAL PROTEIN, SERUM 6.5 g/dL (6.4-8.2)
[2020-02-04] MEDS: LEVALBUTEROL HCL NEB 0.63 MG/3 ML NEBU NEB SCH ×3 (07:22→22:55)
[2020-02-04] MEDS: ACETYLCYSTEINE 20% 800 MG/4 ML VIAL INH SCH ×3 (07:22→22:55)
[2020-02-04 07:35] VITALS: BP 126/88
[2020-02-04] MEDS: HYDROGEN PEROXIDE 3% 118 ML BOTTLE TP SCH ×2 (08:31→20:59)
[2020-02-04] MEDS: METOPROLOL TARTRATE 25 MG TABLET GT SCH ×2 (08:59→21:00)
[2020-02-04] MEDS: VALPROIC ACID 250 MG/5 ML LIQUID UDC GT SCH ×2 (08:59→17:21)
[2020-02-04] MEDS: ZINC SULFATE 220 MG CAPSULE GT SCH (08:59)
[2020-02-04] MEDS: COD LIVER OIL/ZINC OXIDE OINT 113 GM TUBE TP SCH ×2 (09:00→21:36)
[2020-02-04] MEDS: VITAMINS A AND D OINT TP SCH ×2 (09:00→21:36)
--- NOTE | 2020-02-04 11:19 | NUR ---
DR. WEINER WAS PAGED RE:RSBI =27.45,FVC 632 VT,N.F -[address] WEINER CALLED BACK AND AWARE OF VALUES AND WITH ORDER TO CONTINUE CPAP PREVIOUSLY ORDERED.RT JH AWARE AT THIS TIME.
[2020-02-04] MEDS: GLUCERNA 1.2 1000ML LIQUID GT PRN (12:49)
--- NOTE | 2020-02-04 14:20 | NUR ---
LAB RESULTS FAXED AND RECEIVED AT [facility] OFF[facility] AND RECEIVED AND WITH A MESSAGE TO CALL BACK IF NEW ORDERS.
[2020-02-04 15:31] LABS: ABG BASE EXCESS 4.4 mmol/L; ABG HCO3 25.7 mmol/L; ABG PCO2 26.8 mmHg (35.0-45.0); ABG PH 7.599 (7.350-7.450); ABG PO2 112.6 mmHg (75.0-100.0); ABG SITE LEFT RADIAL; ABG TOTAL HEMOGLOBIN 9.2 G/dL (13.5-18.0); COHb 0.6 % (0.5-1.5); CPAP,BG 10 cmH20; MetHb 0.2 % (0.0-1.5); O2Hb 98.1 % (94.0-97.0); VENT MODE CPAP
--- NOTE | 2020-02-04 15:54 | NUR ---
ORDER FOR CPAP WAS CARRIED OUT AND DONE FOR [address] WEINER ORDERED(ORDER VERIFIED WITH HIM TODAY AND HE STATED "ITS BABY STEPS") AND ALSO ABG DONE AND PT'S GRAND DTR. AWARE AND COOPERATED CALMING DOWN PT. TALKING TO HIM IN HIS LANGUAGE.
--- NOTE | 2020-02-04 16:35 | NUR ---
[employer] phone was used with patient Slov[place] health inspector food.. Patient was reposition and has no c/o any chest pain. no SOB. Request his back to rub/ scratch. spot machine operator ID [id number]
--- NOTE | 2020-02-04 17:46 | NUR ---
PT. WAS SEEN AND EXAMINED BY DR. WEINER AND AWARE OF ABG RESULTS AND WITH NEW ORDERS CARRIED OUT TOMORROW.RT JH AWARE.
[2020-02-04 22:58] VITALS: BP 96/65
[2020-02-05] MEDS: PROTEIN SUPPLEMENT (PROSTAT) 30 ML LIQUID GT SCH ×4 (00:44→17:14)
[2020-02-05] MEDS: PANTOPRAZOLE ORAL SUSPENSION 40 MG SUSPDR.PKT GT SCH (06:00)
[2020-02-05] MEDS: ASCORBIC ACID 500 MG TABLET GT SCH (06:00)
[2020-02-05] MEDS: LORAZEPAM 1 MG TABLET GT PRN ×3 (06:55→21:00)
[2020-02-05] MEDS: ACETYLCYSTEINE 20% 800 MG/4 ML VIAL INH SCH ×3 (07:00→23:03)
[2020-02-05] MEDS: LEVALBUTEROL HCL NEB 0.63 MG/3 ML NEBU NEB SCH ×3 (07:00→23:03)
[2020-02-05 07:39] VITALS: BP 111/76
[2020-02-05 07:50] VITALS: BP 111/76
[2020-02-05] MEDS: VALPROIC ACID 250 MG/5 ML LIQUID UDC GT SCH ×3 (08:02→17:13)
[2020-02-05] MEDS: METOPROLOL TARTRATE 25 MG TABLET GT SCH ×2 (08:03→21:00)
[2020-02-05] MEDS: ZINC SULFATE 220 MG CAPSULE GT SCH (08:03)
[2020-02-05] MEDS: COD LIVER OIL/ZINC OXIDE OINT 113 GM TUBE TP SCH ×2 (08:04→21:00)
[2020-02-05] MEDS: VITAMINS A AND D OINT TP SCH ×2 (08:04→21:00)
--- NOTE | 2020-02-05 08:40 | NUR ---
PT. ON T TUBE TRIAL STARTED AT THIS TIME,AND CLOSELY MONITORED,RT AT BEDSIDE ,NO S/S OF RESP. DISTRESS 02 SAT 98% AT 30% FIO2 AND HR 90X'.PERSONAL CELLPHONE CHARGING AND GRAND DTR. AWARE.
--- NOTE | 2020-02-05 09:30 | NUR ---
PT.ON T TUBE TRAIL AND O2 SAT 98%,FIO2 STILL AT 30% AND HR 82X' ,FREQUENT VISUAL CHECKS DONE,MORNING CARE DONE AND PHYSICAL THERAPIST WORKING WITH PT. TOO.
[2020-02-05] MEDS: HYDROGEN PEROXIDE 3% 118 ML BOTTLE TP SCH ×2 (09:42→21:07)
--- NOTE | 2020-02-05 10:49 | NUR ---
PT. WITH O2 SAT 98% AND HR. 88X' FREQUENT VISUAL CHECKS DONE FOR COMFORT AND SAFETY ,ALL NEEDS ATTENDED IN ADVANCE.
[2020-02-05] MEDS: GLUCERNA 1.2 1000ML LIQUID GT PRN (10:51)
[2020-02-05 11:06] LABS: ABG BASE EXCESS 3.5 mmol/L; ABG HCO3 27.1 mmol/L; ABG PCO2 37.1 mmHg (35.0-45.0); ABG PH 7.481 (7.350-7.450); ABG PO2 132.2 mmHg (75.0-100.0); ABG SITE LEFT RADIAL; ABG TOTAL HEMOGLOBIN 9.6 G/dL (13.5-18.0); COHb 0.2 % (0.5-1.5); MetHb 0.3 % (0.0-1.5); O2Hb 98.5 % (94.0-97.0)
--- NOTE | 2020-02-05 11:30 | NUR ---
ABG DONE POST 2 HRS AFTER T TUBE TRIAL WITH FIO2 30%, AND DR. WEINER WAS PAGED ,PT. REMAINS STABLE ,NO S/S OF ANY RESPIRATORY DISTRESS,NO SOB HR 88X' AND O2 SAT 98% AND HE CALLED BACK AND WITH NEW ORDERS CARRIED OUT ,RT SEBATSIAN AWARE.
--- NOTE | 2020-02-05 11:49 | NUR ---
PT'S GRAND DTR. AWARE OF ORDERS AND IN AGREEMENT .
--- NOTE | 2020-02-05 15:09 | NUR ---
cyracom provided to patient. all need attended.
--- NOTE | 2020-02-05 20:50 | NUR ---
Patient was banging on his side rail, Staff changed and repositioned patient but patient was still restless and banging on the side rail. Ativan was given as ordered, kept patient clean and comfortable. Will continue monitor.
--- NOTE | 2020-02-05 21:30 | NUR ---
I went to checked on the patient and his eyes are closed and he is breathing evenly, no signs of any distress and sleeping comfortably. Will continue monitor.
--- NOTE | 2020-02-05 21:35 | NUR ---
Patient's Grand daughter Jenae called and I told her that the patient is sleeping and to let him sleep. Jenae asked the nurse to call her when the patient is awake so she can talk to the patient, and this nurse told her, "yes when the patient wakes up."
--- NOTE | 2020-02-05 22:00 | NUR ---
The nurse who is taking care of the patient stated that patient was on his iphone and was done talking to that family member.The patient dropped his iphone on the bed for he was very sleepy and was drifting off to sleep when someone called his phoneagain and the patient woke up and picked up to answer.
[2020-02-05 22:29] VITALS: BP 135/87
--- NOTE | 2020-02-06 00:45 | NUR ---
The patient's Grand daughter Jenae called the Nurse' station at least 3X and now she is asking how much Ativan was given to the patient because according to her, "the patient is having hallucinations". I told her that the nurse gave what the Doctor ordered which is a mg but Jenae thinks that the Ativan is causing hallucinations to the patient. I explained to her that the patient was also sleeping when he picked up his phone which can cause disorientation on the patient's part. I told Jenae to please let the patient sleep tonight and she agreed and she stated that she will call patient in the morning. I went to check on the patient and his phone was still on, he is talking on his united keetoowah language. Patient is not in any distress, I stayed and talk to the patient and I anticipated patient's needs, call light within reach, patient is drifting off to sleep, will monitor patient closely.
--- NOTE | 2020-02-06 01:54 | NUR ---
Patient is sleeping at this time, no sign of any distress.
[2020-02-06] MEDS: HYDROCODONE/APAP 10-325 MG TABLET GT PRN (04:00)
[2020-02-06] MEDS: PROTEIN SUPPLEMENT (PROSTAT) 30 ML LIQUID GT SCH ×4 (05:13→17:48)
[2020-02-06] MEDS: PANTOPRAZOLE ORAL SUSPENSION 40 MG SUSPDR.PKT GT SCH (05:13)
[2020-02-06] MEDS: ASCORBIC ACID 500 MG TABLET GT SCH (05:14)
--- NOTE | 2020-02-06 07:17 | NUR ---
Patient just woke up, no signs of any distress noted, kept clean and comfortable.
[2020-02-06] MEDS: LEVALBUTEROL HCL NEB 0.63 MG/3 ML NEBU NEB SCH ×3 (07:30→23:11)
[2020-02-06] MEDS: ACETYLCYSTEINE 20% 800 MG/4 ML VIAL INH SCH ×3 (07:30→23:11)
[2020-02-06 07:36] VITALS: BP 127/81
[2020-02-06 07:40] VITALS: BP 127/81
--- NOTE | 2020-02-06 08:00 | NUR ---
STARTED COOL AEROSOL TRIAL PER ORDER. CUFF DEFLATED AND PLACED ON C/A. NO S/S OF RESPIRATORY DISTRESS OBSERVED. SPO2 97%, HR 90. CHARGE NURSE FLOYD MADE AWARE. EXPECT PT TO BE ON TRIAL FOR 4 HOURS; 2 HOUR INCREASE FROM YESTERDAYS TRIAL PER ORDER. WILL CONTINUE TO MONITOR.
--- NOTE | 2020-02-06 08:10 | NUR ---
AEROSOL TRIAL STARTED BY RT MATY WITH FIO2 AT 28% ,PT. FACING TIME WITH GRAND DTR.
[2020-02-06] MEDS: ZINC SULFATE 220 MG CAPSULE GT SCH (08:19)
[2020-02-06] MEDS: METOPROLOL TARTRATE 25 MG TABLET GT SCH ×2 (08:19→21:52)
[2020-02-06] MEDS: VALPROIC ACID 250 MG/5 ML LIQUID UDC GT SCH ×3 (08:19→17:48)
[2020-02-06] MEDS: COD LIVER OIL/ZINC OXIDE OINT 113 GM TUBE TP SCH ×2 (08:20→21:52)
[2020-02-06] MEDS: VITAMINS A AND D OINT TP SCH ×2 (08:20→21:52)
[2020-02-06] MEDS: LORAZEPAM 1 MG TABLET GT PRN (08:21)
--- NOTE | 2020-02-06 09:00 | NUR ---
O2 SAT 100% ,HR. 88X' NO S/S OF ACUTE RESP. DISTRESS,SKIN DRY AND WARM TO TOUCH,NO CYANOSIS,CALL LIGHT ON REACH,PT. HOLDING CELL PHONE. FREQUENT VISUAL CHECKS DONE FOR SAFETY AND COMFORT,O2 SAT MONITORING ON GOING.
[2020-02-06] MEDS: HYDROGEN PEROXIDE 3% 118 ML BOTTLE TP SCH ×2 (09:14→21:30)
--- NOTE | 2020-02-06 11:28 | NUR ---
MORNING CARE WAS GIVEN AND AFTER GRAND DTRStuart PLASCENCIA SPOKE TO PT TO ALLOW LUMP ROOM SUPERVISOR TO SHAVE HIM WITH HIS PERSONAL OWN RAZOR PT. WAS SATISFIED WITH HIS CLEAN FRESH LOOK (REQUESTED A MIRROR BUT MIRROR NOT AVAILABLE ,BUT SELF IMAGE WAS SHOWN TO HIM IN CELL PHONE)O2 SAT 100% STILL AT FIO2 28% AND HR 88X.FREQUENT VISUAL CHECKS DONE FOR SAFETY AND COMFORT ,CALL LIGHT AND CELL PHONE AT REACH.
--- NOTE | 2020-02-06 11:37 | NUR ---
NO S/S OF ANY ACUTE DISTRESS ,NO SOB ,NO C/O DIS COMFORT,RESPIRATION EVEN AND UNLABORED .ASPIRATION PRECAUTIONS KEPT AT ALL TIMES.
--- NOTE | 2020-02-06 12:00 | NUR ---
PLACED BACK ON VENTILATOR WITH SAME SETTINGS. CUFF INFLATED. PATIENT TOLERATED 4 HOUR COOL AEROSOL TRIAL WELL. NO CHANGE IN MENTAL STATUS. NO S/S OF RESPIRATORY DISTRESS DURING/AFTER TRIAL. SPOT 99%, HR 93. CHARGE NURSE FLOYD MADE AWARE. WILL CONTINUE TO MONITOR.
--- NOTE | 2020-02-06 12:10 | NUR ---
PT. BACK ON VENT PER RT MATY AND GRAND GUORStuart PLASCENCIA ASKED HIM IF HE CAN STAY LONGER ON AEROSOL MIST AND REMINDED ABOUT DR. DODSON'S ORDER THAT HE WILL HAVE INCREASE 2 HRS EACH DAY AND ABG'S WILL BE DONE NEEDED ONLY IF ANY DISTRESS.
--- NOTE | 2020-02-06 12:30 | NUR ---
PT. OBSERVED YELLING AND WITH ANGRY FACE ,[employer] CONCRETE PLANT LABORER PHONE WAS USED AT THIS TIME FOR MOLDOVAN LANGUAGE CODE # [id number]. NURSE ASKED IF PT. WAS IN ANY PAIN OR DISCOMFORT OR WHY HE WAS ANGRY AND LOUD AND PER MOLDOVAN CONCRETE PLANT LABORER HE WAS SPEAKING MOLDOVAN BUT HE WAS NOT ANSWERING HIS QUESTIONS HE STATED THAT HE WANTED A PERSON THAT SPEAKS MOLDOVAN AND HE WAS TALKING ABOUT HIS FATHER AND PT. GAVE AWAY THE [employer] PHONE TO NURSE.
[2020-02-06 20:38] VITALS: BP 111/76
--- NOTE | 2020-02-06 22:47 | NUR ---
Patient's is awake, talking on his phone with his family his Grand daughter Jenae included. Jenae called the nurse' station to tell the nurse that her Grand Father is itchy and wants the nurse to scratch her Grand Father's (Patient) back. The nurse went to the patient checked, cleaned and scratched the patient's back. Then a few minutes David called again stating that the patient is complaining that his back is still itchy. The nurse assigned to the patient and I went to the patient and cleaned the patient's back thoroughly, the skin is dry, we applied lotion and stretch his linens, repositioned patient and patient said, "ok".
--- NOTE | 2020-02-06 22:55 | NUR ---
HEAD CONTROL CLERK cleaned and repositioned patient , patient is on the phone with his family.
--- NOTE | 2020-02-06 22:56 | NUR ---
Jenae (Patient's Grand daughter) called to tell the nurse that her Grand Father was just cleaned but according to her, Her Grand Father is saying that he just had bowel movement or making Bowel movement but she is not so sure so she wants the nurse to go check on the patient. Then after a few minutes, Jenae called again and stated that, " My Grand father said that he is not having bowel movement; it just went away but he is complaining that his diaper is tight and wants his head a little higher ." I told her that I will go check on her grand father. I went to the patient's room and patient is talking to his family while I checked on the patient. The diaper was clean, no BM, and I loosened the diaper. The head of the bed was at least 40 degrees but patient wants it more elevated. I elevated the HOB per patient's preference and asked patient if he is okay and he said, "ok". I left the room while the patient is having face time with his family.
[2020-02-07] MEDS: LORAZEPAM 1 MG TABLET GT PRN ×3 (04:02→22:16)
[2020-02-07] MEDS: PANTOPRAZOLE ORAL SUSPENSION 40 MG SUSPDR.PKT GT SCH (05:18)
[2020-02-07] MEDS: PROTEIN SUPPLEMENT (PROSTAT) 30 ML LIQUID GT SCH ×4 (05:18→17:53)
[2020-02-07] MEDS: ASCORBIC ACID 500 MG TABLET GT SCH (05:18)
[2020-02-07 07:38] VITALS: BP 126/85
[2020-02-07] MEDS: ACETYLCYSTEINE 20% 800 MG/4 ML VIAL INH SCH ×3 (08:00→22:59)
[2020-02-07] MEDS: LEVALBUTEROL HCL NEB 0.63 MG/3 ML NEBU NEB SCH ×3 (08:00→22:59)
--- NOTE | 2020-02-07 08:30 | NUR ---
COOL AEROSOL TRIAL STARTED AFTER ORDERED BREATHING TX. FAMILY MADE AWARE. PT PROJECTED TO GO 6 HOURS ON C/A TODAY; 2 HOUR INCREASE FROM YESTERDAYS TRIAL. CUFF DEFLATED. PT TOLERATED C/A. SPO2 99, HR 93. NO S/S OF RESPIRATORY DISTRESS NOTED. WILL CONTINUE TO MONITOR. CHARGE NURSE FLOYD MADE AWARE.
--- NOTE | 2020-02-07 08:36 | NUR ---
PT. RECEIVED AWAKE TALKING LOUD WITH HIS GRAND DTR. IN HIS I PHONE ,AFTER V/S WERE CHECKED BY WATER METER INSTALLER AND FOLLOW:TEMP 98,HR 84X',RR 16X',B/P 126/85,O2 SAT 100%,P/A 0/10.MORNING CARE WAS GIVEN BY WATER METER INSTALLER ,BREATHING TX AND TRACH SUCTIONING AND LAVAGE WAS DONE BY RT.AND AT THIS TIME AEROSOL TRIAL WAS STARTED .PT'S GRAND DTR.ASKED RT AND NURSE IF THEY CAN TELL DR. WEINER TO LEAVE HIM LONGER ON AEROSOL AND CH. NURSE EXPLAINED TO HER THAT DR. WEINER WAS VERY SPECIFIC ABOUT THE WEANING PROCESS THAT NEEDS TO BE DONE INCREASING 2 HRS EACH DAY AND THE NURSE ALREADY ASKED HIM THAT LAST TIME TOO AND SAID NO.GRAND DTR. THAIS ASKED CH. NURSE IF OR NURSE JAIME SPEAKING CAN EXPLAIN THAT TO HIM BECAUSE HE FEELS BETTER WHEN SOMEBODY IN THE MEDICAL FIELD EXPLAIN THAT TO HIM DIRECTLY.THAIS WAS AWARE THAT TODAY THERE IS NO MEDICAL OR NURSING STAFF JAIME SPEAKING IN THE HOSPITAL.
[2020-02-07] MEDS: VALPROIC ACID 250 MG/5 ML LIQUID UDC GT SCH ×3 (09:00→17:53)
[2020-02-07] MEDS: COD LIVER OIL/ZINC OXIDE OINT 113 GM TUBE TP SCH ×2 (09:00→21:00)
[2020-02-07] MEDS: ZINC SULFATE 220 MG CAPSULE GT SCH (09:00)
[2020-02-07] MEDS: VITAMINS A AND D OINT TP SCH ×2 (09:00→21:00)
[2020-02-07] MEDS: METOPROLOL TARTRATE 25 MG TABLET GT SCH ×2 (09:00→21:00)
[2020-02-07] MEDS: HYDROGEN PEROXIDE 3% 118 ML BOTTLE TP SCH ×2 (09:06→21:00)
--- NOTE | 2020-02-07 12:28 | NUR ---
THAIS ,PT'S GRAND DTR.CAME TO CARDIAC NURSE PRACTITIONER I PHONE TO RE -SET IT AND ALSO BROUGHT A DEVICE FOR PT'S TV THAT ALLOWS PT. TO WATCH DIFFERENT VATICAN CITIZEN CHANNELS AND SHE MET WITH COAL CRUSHER OPERATOR AND HE WILL WORK ON IT. PT'S GRAND DTR.BROUGHT BENADRYL CREAM D/T SHE SAID THAT PT. C/O ITCHING ON BACK AND [facility] PHARMACIST RECOMMENDED IT.PT. WAS CHECKED ON BACK SKIN AND NO ABNORMAL CHANGES NOTED AND PT. SATISFIED AFTER NURSE GENTLY RUBBED HIS BACK .
[2020-02-07] MEDS: HYDROCODONE/APAP 10-325 MG TABLET GT PRN (12:33)
--- NOTE | 2020-02-07 12:41 | NUR ---
CH. NURSE TOLD GRAND DTR. THAT BENADRYL CREAM THAT SHE BROUGHT WAS NOT NEEDED AT THIS TIME,D/T HIS SKIN IS INTACT AND HE ONLY NEEDED BACK GENTLY RUB.
--- NOTE | 2020-02-07 13:19 | NUR ---
PATIENT CALLED FOR HELP. USED [employer] PHONE TO ACCESS SYRIAN BENEFITS PROCESSOR. PATIENT NEEDS COMMUNICATED AND CARED FOR ACCORDINGLY. WILL CONTINUE TO MONITOR. Addendum: 02/07/20 at 1929 by NORMAN PAT RN PATIENT CALLED FOR HELP. USED [employer] PHONE TO ACCESS SYRIAN BENEFITS PROCESSOR #[id number]. PATIENT NEEDS WAS COMMUNICATED AND CARED FOR ACCORDINGLY. WILL CONTINUE TO MONITOR.
--- NOTE | 2020-02-07 14:30 | NUR ---
PT COMPLETED 6 HOUR COOL AEROSOL TRIAL. TOLERATED WELL. NO S/SF OF RESPIRATORY DISTRESS NOTED. PT PLACED BACK ON VENTILATOR WITH PREVIOUS SETTINGS. CUFF INFLATED. SPOKE TO FAMILY MEMBER; NOTIFIED HER THAT WE WILL BE PERFORMING PT'S TRACH CHANGE. FAMILY MEMBER STATED THAT PATIENT IS SCARED OF HAVING TRACH CHANGE AND DOES NOT WANT TO DO IT AT THIS TIME. CHARGE NURSE FLOYD MADE AWARE. CAME TO THE CONCLUSION THAT FAMILY/PATIENT WANTS IT DONE TOMORROW WITH HAND CELL TUBER PRESENT. WILL ENDORSE TO NEXT SHIFT.
--- NOTE | 2020-02-07 15:00 | NUR ---
PT. REFUSED [employer] TELEPHONE PUSHING IT AWAY ,HE DOES NOT WANT IT IN THE ROOM.
--- NOTE | 2020-02-07 18:24 | NUR ---
PT. C/O NAUSEA COMMUNICATING WITH NURSES VIA LIST OF SENTENCES IN HIS LANGUAGE POINTING AT THE WORD NAUSEA AND MEDICATED BY NURSE ORDERED.PT. ALSO POINTED AT WORD COLD REQUESTING AN EXTRA BLANKET.V/S AT THIS TIME FOLLOW:B/P 119/82,hr 88x',rr 18x',O2 100% ,TEMP 98F,P/A 0/10.PT. LIKES SQUEEZING A BALL WITH LEFT HAND AND ALSO HE ENJOYED FOR A FEW MINUTES THROWING A BALLOON BACK AND FORTH TO NURSES.PT WITH I PHONE AND CALL LIGHT ON REACH AT ALL TIMES.
[2020-02-07 18:38] VITALS: BP 119/82
[2020-02-07 20:54] VITALS: BP 109/75
[2020-02-08] MEDS: PROTEIN SUPPLEMENT (PROSTAT) 30 ML LIQUID GT SCH ×4 (00:04→17:07)
[2020-02-08] MEDS: LORAZEPAM 1 MG TABLET GT PRN ×3 (04:40→21:00)
[2020-02-08] MEDS: PANTOPRAZOLE ORAL SUSPENSION 40 MG SUSPDR.PKT GT SCH (06:17)
[2020-02-08] MEDS: ASCORBIC ACID 500 MG TABLET GT SCH (06:17)
[2020-02-08] MEDS: ACETYLCYSTEINE 20% 800 MG/4 ML VIAL INH SCH ×3 (07:37→23:45)
[2020-02-08] MEDS: LEVALBUTEROL HCL NEB 0.63 MG/3 ML NEBU NEB SCH ×3 (07:37→23:45)
[2020-02-08 07:39] VITALS: BP 112/65
[2020-02-08] MEDS: VALPROIC ACID 250 MG/5 ML LIQUID UDC GT SCH ×3 (08:06→17:07)
[2020-02-08] MEDS: METOPROLOL TARTRATE 25 MG TABLET GT SCH ×2 (08:08→21:00)
[2020-02-08] MEDS: ZINC SULFATE 220 MG CAPSULE GT SCH (08:08)
[2020-02-08] MEDS: VITAMINS A AND D OINT TP SCH ×2 (08:09→21:00)
[2020-02-08] MEDS: COD LIVER OIL/ZINC OXIDE OINT 113 GM TUBE TP SCH ×2 (08:09→21:00)
[2020-02-08] MEDS: HYDROGEN PEROXIDE 3% 118 ML BOTTLE TP SCH ×2 (09:00→21:00)
--- NOTE | 2020-02-08 10:42 | NUR ---
PT needed to communicate with nurse. Nurse provided [employer] services with kaibab language (Nepalese). Restaurant Bartender # [id number]. Nurse asked if PT was ok because he used the call light. PT verbalized that he needed to changed but the RETRIMMER already helped him. Nurse asked if he was in Pain. PT stated that he had 0/10 pain. Nurse asked if he needed anything else. PT stated that he was ok. Call ended. PT is in bed, awake and alert with no signs of distress. Safety measures were provided. Call light within reach. Charge nurse is aware.
--- NOTE | 2020-02-08 11:05 | NUR ---
PT. HAD A VIDEO CHAT VIA ZOOM WITH DR. CASTRO (PSYCH) AND WORKFORCE ADVISOR PRESENT AND ASSISTING WITH TRANSLATION FOR TRINIDADIAN LANGUAGE.
--- NOTE | 2020-02-08 13:00 | NUR ---
NEW ORDER WAS CARRIED OUT FROM ANDERSON KeyesFOR OK. TO CHANGE TRACH TO CUFFLESS ONCE PT, SUCCESSFULLY IS WEANED OFF FROM VENT AND PT'S GRAND DTR. THAIS AWARE AND IN AGREEMENT.
--- NOTE | 2020-02-08 14:00 | NUR ---
NEW ORDER CLARIFIED AND CARRIED OUT FROM DR. CASTRO (PSYCH) AND CARRIED OUT AFTER PT'S GRAND DTR. THAIS GAVE CONSENT TO 2 NURSES BY PHONE,AND WAS TO INCREASE DEPAKENE TO 375MG TID FOR SCHIZOID PSYCHOTIC BIPOLAR FEATURES M/B RESTLESSNESS AND AGITATION AND THAIS STATED THAT SHE IS HAPPY WITH THAT INCREASE AND HOPES ATIVAN PRN IS NEEDED LESS.CONSENT FOR DR. CASTRO TO SIGN FAXED TO HER OFFICE AND RECEIVED AND WINDOW SHADE CUTTER STATED THAT SHE WILL SIGN TOMORROW NAD WILL FAX IT BACK.
--- NOTE | 2020-02-08 16:07 | NUR ---
placed back on vent as ordered. aerosol trial went well with patient resting most of the time. had to call Shakee from social service to translate and explain to pt that it is only a trial and that we have to do it again tomorrow.
--- NOTE | 2020-02-08 16:30 | NUR ---
PT. TOLERATED WELL AEROSOL TRAIL 8 HRS WITH NO S/S OF ACUTE RESP. DISTRESS,NO SOB ,NO DESATURATION.
[2020-02-08] MEDS: GLUCERNA 1.2 1000ML LIQUID GT PRN (17:08)
--- NOTE | 2020-02-08 17:30 | NUR ---
Printed Products Assembler # [id number]
--- NOTE | 2020-02-08 17:30 | NUR ---
PT was banging call light on side rails. PT seemed irritated and restless. Nurse used [employer] Maintenance Worker Network to communicate with PT. PT threw phone on the floor. Nurse asked to please use phone so they can understand each other. Nurse asked if PT is ok. PT stated that he was hot so nurse removed heavy blanket. Nurse asked if PT needed a fan. PT got upset, refused the fan, and insisted to remove right away, but still complaining to heat. PT requested paper to fan himself. PT provided safety measures. Call light within reach. Charge nurse aware.
--- NOTE | 2020-02-08 17:50 | NUR ---
NEW GLASSES WERE BROUGHT BY THAIS'S FAMILY MENBER.
--- NOTE | 2020-02-08 18:30 | NUR ---
PT'S GRAND DTR. THAIS SWITCHED PT'S I PHONE D/T ACCORDING TO HER THERE WAS A PROBLEM WITH VOLUME.
--- NOTE | 2020-02-08 18:37 | NUR ---
NEW ORDER WAS CARRIED OUT FROM DR. WEINER FOR COVID 19 TEST PER [facility] REQUIREMENT ,PT'S GRAND DTR.THAIS AWARE AND IN AGREEMENT.
--- NOTE | 2020-02-08 19:05 | NUR ---
nurse and fire patroller went in room, explained covid test need to be done, procedure carried out, respiratory therapist explained bolivian procedure.
[2020-02-08 20:30] VITALS: BP 101/71
[2020-02-09] MEDS: PROTEIN SUPPLEMENT (PROSTAT) 30 ML LIQUID GT SCH ×5 (00:07→23:25)
[2020-02-09] MEDS: PANTOPRAZOLE ORAL SUSPENSION 40 MG SUSPDR.PKT GT SCH (06:39)
[2020-02-09] MEDS: ASCORBIC ACID 500 MG TABLET GT SCH (06:39)
[2020-02-09 07:33] VITALS: BP 116/75
[2020-02-09] MEDS: HYDROGEN PEROXIDE 3% 118 ML BOTTLE TP SCH ×2 (07:49→21:48)
[2020-02-09] MEDS: LEVALBUTEROL HCL NEB 0.63 MG/3 ML NEBU NEB SCH ×3 (07:49→22:59)
[2020-02-09] MEDS: ACETYLCYSTEINE 20% 800 MG/4 ML VIAL INH SCH ×3 (07:49→22:59)
[2020-02-09] MEDS: METOPROLOL TARTRATE 25 MG TABLET GT SCH ×2 (08:19→21:24)
[2020-02-09] MEDS: VALPROIC ACID 250 MG/5 ML LIQUID UDC GT SCH ×3 (08:19→16:48)
--- NOTE | 2020-02-09 08:19 | NUR ---
PT AWAKE ALERT AND RESPONSIVE. PER MD ORDER PT PLACED ON COOL AEROSOL TRIAL. CUFF DEFLATED AND PMV PLACED. PT TOLERATING COOL AEROSOL FINE WITH NO DISTRESS. WILL CONTINUE TO CLOSELY MONITOR
[2020-02-09] MEDS: COD LIVER OIL/ZINC OXIDE OINT 113 GM TUBE TP SCH ×2 (08:20→21:24)
[2020-02-09] MEDS: ZINC SULFATE 220 MG CAPSULE GT SCH (08:20)
[2020-02-09] MEDS: VITAMINS A AND D OINT TP SCH ×2 (08:20→21:24)
[2020-02-09] MEDS: LORAZEPAM 1 MG TABLET GT PRN ×2 (08:27→18:37)
--- NOTE | 2020-02-09 10:35 | NUR ---
PT used call light. Nurse attended to PT and seemed agitated. Nurse used [employer] Data Control Clerk Supervisor to communicate with PT. Data Control Clerk Supervisor # [phone] (Uzbek language). Nurse asked if PT was ok. PT stated that he was cold so nurse put 2 blankets on PT. Nurse asked if PT is in pain. No pain stated by PT. Nurse asked if there was anything else PT needed. PT stated he was ok. No further assistance needed. PT in bed, calm and alert with no signs of distress noted. Safety measures provided. Call light within reach. Will continue to monitor.
[2020-02-09] MEDS: GLUCERNA 1.2 1000ML LIQUID GT PRN (16:49)
--- NOTE | 2020-02-09 18:29 | NUR ---
PT TOLERATED COOL AEROSOL FINE WITH NO EPISODE OF DISTRESS.
--- NOTE | 2020-02-09 19:12 | NUR ---
Covid19 test results negative.
[2020-02-09 20:23] VITALS: BP 109/72
[2020-02-09] MEDS: HYDROCODONE/APAP 10-325 MG TABLET GT PRN (21:00)
[2020-02-10] MEDS: LORAZEPAM 1 MG TABLET GT PRN ×3 (01:00→23:00)
[2020-02-10] MEDS: GLUCERNA 1.2 1000ML LIQUID GT PRN ×2 (01:58→22:54)
--- NOTE | 2020-02-10 03:00 | NUR ---
Patient was talking loudly and was getting agitated, utilized [employer] for braider tender but patient grab and throw the phone. Anticipated patient's needs, and turned and cleaned patient. Staff is with patient at this time, will continue monitor patient. Addendum: 02/10/20 at 0634 by RAF COATS RN [employer] braider tender # [id number]
[2020-02-10] MEDS: HYDROCODONE/APAP 10-325 MG TABLET GT PRN ×2 (04:00→20:00)
[2020-02-10] MEDS: PANTOPRAZOLE ORAL SUSPENSION 40 MG SUSPDR.PKT GT SCH (05:08)
[2020-02-10] MEDS: ASCORBIC ACID 500 MG TABLET GT SCH (05:08)
[2020-02-10] MEDS: PROTEIN SUPPLEMENT (PROSTAT) 30 ML LIQUID GT SCH ×4 (05:08→23:45)
[2020-02-10 07:35] VITALS: BP 115/78
[2020-02-10] MEDS: ACETYLCYSTEINE 20% 800 MG/4 ML VIAL INH SCH ×3 (08:10→23:12)
[2020-02-10] MEDS: LEVALBUTEROL HCL NEB 0.63 MG/3 ML NEBU NEB SCH ×3 (08:10→23:12)
[2020-02-10] MEDS: METOPROLOL TARTRATE 25 MG TABLET GT SCH ×2 (08:49→20:13)
[2020-02-10] MEDS: VALPROIC ACID 250 MG/5 ML LIQUID UDC GT SCH ×3 (08:49→17:34)
[2020-02-10] MEDS: VITAMINS A AND D OINT TP SCH ×2 (08:50→20:14)
[2020-02-10] MEDS: COD LIVER OIL/ZINC OXIDE OINT 113 GM TUBE TP SCH ×2 (08:50→20:14)
[2020-02-10] MEDS: ZINC SULFATE 220 MG CAPSULE GT SCH (08:50)
[2020-02-10] MEDS: HYDROGEN PEROXIDE 3% 118 ML BOTTLE TP SCH ×2 (09:00→21:35)
--- NOTE | 2020-02-10 13:18 | NUR ---
Patient noted with a request in South Korean. A call placed with [employer] phone for an branch credit counselor; however, patient refused to use phone branch credit counselor and drop the handset. Two other attempts to have him communication his needs with the phone branch credit counselor were also refused. Will continue to monitor.
--- NOTE | 2020-02-10 16:30 | NUR ---
Seen and examined by Dr Faye with new orders noted.
[2020-02-10 20:00] VITALS: BP 137/85
--- NOTE | 2020-02-11 00:44 | NUR ---
Patient's Grand daughter Jenae stated not to give shower to the patient tonight but tomorrow during day time.
[2020-02-11] MEDS: HYDROCODONE/APAP 10-325 MG TABLET GT PRN ×2 (04:00→23:25)
[2020-02-11] MEDS: LORAZEPAM 1 MG TABLET GT PRN ×3 (05:00→20:27)
[2020-02-11] MEDS: ASCORBIC ACID 500 MG TABLET GT SCH (05:24)
[2020-02-11] MEDS: PANTOPRAZOLE ORAL SUSPENSION 40 MG SUSPDR.PKT GT SCH (05:24)
[2020-02-11] MEDS: PROTEIN SUPPLEMENT (PROSTAT) 30 ML LIQUID GT SCH ×3 (05:24→17:55)
--- NOTE | 2020-02-11 05:54 | NUR ---
Patient has been awake most of the night, kept clean and comfortable, change and repositioned, Grand daughter Jenae Called and stated that her Grand father (The Patient) is complaining of pain and wants to give pain medication to the patient, [place] was given, patient slept an hour and is awake again, no signs of any respiratory distress, turned and repositioned, will continue monitor.
[2020-02-11 07:34] VITALS: BP_SYST 104; BP_SYST 115; BP_DIAS 56; BP_DIAS 77
[2020-02-11] MEDS: HYDROGEN PEROXIDE 3% 118 ML BOTTLE TP SCH ×2 (07:41→21:10)
[2020-02-11] MEDS: ACETYLCYSTEINE 20% 800 MG/4 ML VIAL INH SCH ×3 (07:41→23:04)
[2020-02-11] MEDS: LEVALBUTEROL HCL NEB 0.63 MG/3 ML NEBU NEB SCH ×3 (07:41→23:04)
[2020-02-11] MEDS: VALPROIC ACID 250 MG/5 ML LIQUID UDC GT SCH ×3 (09:00→16:31)
[2020-02-11] MEDS: COD LIVER OIL/ZINC OXIDE OINT 113 GM TUBE TP SCH ×2 (09:01→21:00)
[2020-02-11] MEDS: ZINC SULFATE 220 MG CAPSULE GT SCH (09:01)
[2020-02-11] MEDS: VITAMINS A AND D OINT TP SCH ×2 (09:01→21:00)
[2020-02-11] MEDS: METOPROLOL TARTRATE 25 MG TABLET GT SCH ×2 (09:01→21:00)
--- NOTE | 2020-02-11 12:00 | NUR ---
Anxious, attempted to use use the oil well perforator operator phone (blue phone), patient refused to use the phone, pushing it away, ativan 1mg via gt given, effective after 1 hr, comfort measures given.
[2020-02-11 20:00] VITALS: BP 98/71
[2020-02-11] MEDS: ACETAMINOPHEN 650 MG/20 ML UDC- SA PATIENTS-PAIN ONLY GT PRN (20:28)
[2020-02-12] MEDS: GLUCERNA 1.2 1000ML LIQUID GT PRN (03:30)
[2020-02-12] MEDS: PROTEIN SUPPLEMENT (PROSTAT) 30 ML LIQUID GT SCH ×4 (05:36→17:14)
[2020-02-12] MEDS: ASCORBIC ACID 500 MG TABLET GT SCH (05:36)
[2020-02-12] MEDS: PANTOPRAZOLE ORAL SUSPENSION 40 MG SUSPDR.PKT GT SCH (05:36)
[2020-02-12 07:31] VITALS: BP 131/74
[2020-02-12] MEDS: HYDROGEN PEROXIDE 3% 118 ML BOTTLE TP SCH ×2 (07:31→21:28)
[2020-02-12] MEDS: ACETYLCYSTEINE 20% 800 MG/4 ML VIAL INH SCH ×3 (07:31→22:51)
[2020-02-12] MEDS: LEVALBUTEROL HCL NEB 0.63 MG/3 ML NEBU NEB SCH ×3 (07:31→22:51)
[2020-02-12 07:42] LABS: BASOPHILS # (AUTO) 0.1 K/uL (0.0-8.0); BASOPHILS % (AUTO) 0.3 % (0.0-2.0); EOSINOPHILS % (AUTO) 0.3 % (0.0-7.0); HEMATOCRIT 25.6 % (36.7-47.1); HEMOGLOBIN 8.3 g/dL (12.5-16.3); LYMPHOCYTES # (AUTO) 1.2 K/uL (20.0-40.0); LYMPHOCYTES % (AUTO) 7.7 % (20.5-51.5); MEAN CORPUSCULAR HEMOGLOBIN 29.2 uug (23.8-33.4); MEAN CORPUSCULAR HGB CONC 33 g/dL (32.5-36.3); MEAN CORPUSCULAR VOLUME 89.6 fL (73.0-96.2); MONOCYTES # (AUTO) 1.7 K/uL (2.0-10.0); MONOCYTES % (AUTO) 11.2 % (0.0-11.0); NEUTROPHILS # (AUTO) 12.2 K/uL (1.8-8.9); NEUTROPHILS % (AUTO) 80.5 % (38.5-71.5); PLATELET COUNT (AUTO) 185 K/uL (152-348); RED BLOOD CELL COUNT(AUTO) 2.85 MIL/uL (4.06-5.63); WHITE BLOOD COUNT (AUTO) 15.2 K/uL (3.6-10.2)
--- NOTE | 2020-02-12 08:00 | NUR ---
Pt received on continuous mechanical ventilation with ordered settings. Deflated trach cuff and placed on C/A 28%-FIO2 via T-piece per MD orders. Pt seems a bit agitated. No respiratory distress noted. Bag/valve/mask and backup trach at bedside. HEAD LOFT WORKER Alena notified.
[2020-02-12] MEDS: VALPROIC ACID 250 MG/5 ML LIQUID UDC GT SCH ×3 (08:33→17:14)
[2020-02-12] MEDS: METOPROLOL TARTRATE 25 MG TABLET GT SCH ×2 (08:34→21:41)
[2020-02-12] MEDS: COD LIVER OIL/ZINC OXIDE OINT 113 GM TUBE TP SCH ×2 (08:34→21:41)
[2020-02-12] MEDS: ZINC SULFATE 220 MG CAPSULE GT SCH (08:34)
[2020-02-12] MEDS: LORAZEPAM 1 MG TABLET GT PRN (08:37)
--- NOTE | 2020-02-12 08:37 | NUR ---
Pt anxious pulling off t-piece tubing and not been cooperative. Attempted to use loom checker phone at pt bedside pt kept pushing phone away. Medicated pt with Ativan 1mg via gt. Asked RT staff to stop weaning with t- tube trials because pt kept pulling out tubes. No, episodes os respiratory distress. frequent room visits practiced.
[2020-02-12 08:55] LABS: BILIRUBIN,TOTAL 0.3 mg/dL (0.2-1.0); CREATININE 1.2 mg/dL (0.6-1.3); POTASSIUM 3.8 mmol/L (3.5-5.1)
[2020-02-12] MEDS: VITAMINS A AND D OINT TP SCH ×2 (09:00→21:41)
--- NOTE | 2020-02-12 09:08 | NUR ---
Pt was given Ativan earlier @ approximately 0845 but continued to be restless and loud. Pt behaving very uncooperative and pulling off T-piece Cool Aerosol. Pt coughing up blood clots, and suctioned for small amounts of thick blood. Pt placed back on HT-50 vent with previous settings, cuff inflated. Alarm cable reconnected. Bag/valve/mask and backup trach at bedside. LEROY Carvajal and NOA Bhatia notified. Pt tolerating vent settings well. No respiratory distress noted. Vent alarm parameters checked, on and audible. Will continue to monitor.
--- NOTE | 2020-02-12 09:30 | NUR ---
9:10am: SW was asked by nursing to assist with communicating with the patient, since patient is restless, uncooperative, pushing and banging the blue translation phone, and yelling. SW speaks Libyan, and assisted nursing with trying to communicate with the patient. Patient presents agitated, yelling, restless; SW is unable to understand patient's needs, as she words are in coherent. SW attempted to provide patient with support and comfort in Libyan, however patient continued to be restless and agitated. Patient's granddaughter Jenae was called, and attempted to speak with the patient over the phone, but patient kept on pushing the phone away. Nursing to continue to monitor patient, and provide appropriate interventions. SW will continue to be available to the patient and staff, as needed. SW will also follow-up with patient's family.
--- NOTE | 2020-02-12 16:21 | NUR ---
2:46pm: This SW and nurse manage Steve Ramos called patient's granddaughter Jenae in response to Jenae's message that she had sent this SW earlier today regarding family's concern about patient's agitation related to language barrier. Jenae wanted to discuss the possibility of transferring patient to another facility that had more staff that spoke either Micronesian or German, and a facility that allowed visitation (current visitations are restricted due to COVID-19 pandemic). KASI and Steve acknowledged Jenae's concerns and stated that this SW can provided Jenae with a list of other subacute facilities in [facility] for the family to look into. Jenae expressed agreement. Jenae then generated a discussion about the possibility of taking the patient home, instead of another facility. This SW and nurse water/wastewater project manager Steve once again acknowledged Jenae's wishes, and discussed the level of care needed at home in order to tend to patient's needs safely. Jenae expressed understanding. KASI and Steve suggested that these concerns and alternate plans could be further discussed during the IDT meeting on 02/15, which Jenae agreed to. In the meantime, KASI will email Jenae a list of subacute facilities in [facility].
--- NOTE | 2020-02-12 16:33 | NUR ---
KASI emailed patient's granddaughter Jenae the [facility] Subacute provide list for the [facility], which includes a list of subacute facilities in each [facility]. KASI highlighted the following local facilities: 1) [facility], [address] [facility] 2) [facility], [address] [place] 3) [facility], [address] [place] 4) [facility], [address] [facility] 5) [facility], [address] [facility] 6) [facility], [address] [facility], KASI and IDT team to further discuss family's plans during IDT meeting on 02/15
[2020-02-12 16:59] LABS: *BILIRUBIN,URIN NEGATIVE (NEGATIVE); *BLOOD, URINE NEGATIVE (NEGATIVE); *CLARITY,URINE CLEAR (CLEAR); *COLOR,URINE YELLOW (YELLOW); *KETONES,URINE NEGATIVE (NEGATIVE); *UROBILINOGEN,URINE 0.2 E.U./dl (NORMAL); LEUKOCYTE ESTERASE ,URINE NEGATIVE (NEGATIVE); NITRITE, URINE NEGATIVE (NEGATIVE); UGLUCOSE NEGATIVE (NEGATIVE)
--- NOTE | 2020-02-12 17:36 | NUR ---
Dr. Carmona notified of pt's condition, cxr, labs results, wbc 15.2, bun 49, cr 1.2, new orders given, to start NS @ 100ml/hr bmp in Am. if unable to start an IV give extra fluids. Unable to start an IV due to poor venous access and patient moving constantly, daughter Kendra and granddaughter Jenae notified of patient's condition and new orders.
[2020-02-12 20:00] VITALS: BP 119/75
[2020-02-12 20:46] LABS: BACTERIA,URINE FEW /HPF (NONE SEEN); COARSE GRANULAR CASTS,URINE 0-3 /LPF; RBC,URINE 0-3 /HPF (0-3); SQUAMOUS EPITHELIAL CELL,UR FEW /HPF (NONE SEEN); WBC,URINE 0-3 /HPF (0-3)
[2020-02-12] MEDS: HYDROCODONE/APAP 10-325 MG TABLET GT PRN (21:00)
[2020-02-13] MEDS: PROTEIN SUPPLEMENT (PROSTAT) 30 ML LIQUID GT SCH ×5 (00:29→23:48)
[2020-02-13] MEDS: LORAZEPAM 1 MG TABLET GT PRN ×4 (00:29→23:49)
[2020-02-13] MEDS: ASCORBIC ACID 500 MG TABLET GT SCH (05:24)
[2020-02-13] MEDS: PANTOPRAZOLE ORAL SUSPENSION 40 MG SUSPDR.PKT GT SCH (05:24)
[2020-02-13] MEDS: ACETYLCYSTEINE 20% 800 MG/4 ML VIAL INH SCH ×3 (07:17→22:55)
[2020-02-13] MEDS: LEVALBUTEROL HCL NEB 0.63 MG/3 ML NEBU NEB SCH ×3 (07:17→22:55)
[2020-02-13 07:20] LABS: BASOPHILS % (AUTO) 0.4 % (0.0-2.0); EOSINOPHILS # (AUTO) 0.2 K/uL (0.0-0.7); EOSINOPHILS % (AUTO) 1.5 % (0.0-7.0); HEMATOCRIT 29.1 % (36.7-47.1); HEMOGLOBIN 9.5 g/dL (12.5-16.3); LYMPHOCYTES # (AUTO) 1.2 K/uL (20.0-40.0); LYMPHOCYTES % (AUTO) 11.3 % (20.5-51.5); MEAN CORPUSCULAR HEMOGLOBIN 29.5 uug (23.8-33.4); MEAN CORPUSCULAR HGB CONC 33 g/dL (32.5-36.3); MEAN CORPUSCULAR VOLUME 89.9 fL (73.0-96.2); MONOCYTES # (AUTO) 1.2 K/uL (2.0-10.0); MONOCYTES % (AUTO) 11.6 % (0.0-11.0); NEUTROPHILS # (AUTO) 7.9 K/uL (1.8-8.9); NEUTROPHILS % (AUTO) 75.2 % (38.5-71.5); PLATELET COUNT (AUTO) 217 K/uL (152-348); RED BLOOD CELL COUNT(AUTO) 3.23 MIL/uL (4.06-5.63); WHITE BLOOD COUNT (AUTO) 10.5 K/uL (3.6-10.2)
[2020-02-13 07:29] VITALS: BP 108/70
[2020-02-13] MEDS: HYDROGEN PEROXIDE 3% 118 ML BOTTLE TP SCH ×2 (09:00→21:27)
[2020-02-13] MEDS: ZINC SULFATE 220 MG CAPSULE GT SCH (09:33)
[2020-02-13] MEDS: COD LIVER OIL/ZINC OXIDE OINT 113 GM TUBE TP SCH ×2 (09:33→21:45)
[2020-02-13] MEDS: VALPROIC ACID 250 MG/5 ML LIQUID UDC GT SCH ×3 (09:33→16:38)
[2020-02-13] MEDS: VITAMINS A AND D OINT TP SCH ×2 (09:34→21:45)
[2020-02-13] MEDS: METOPROLOL TARTRATE 25 MG TABLET GT SCH ×2 (09:39→21:44)
--- NOTE | 2020-02-13 09:55 | NUR ---
Patient in bed, restless, ativan 1 mg given as ordered per MD. and effective.
--- NOTE | 2020-02-13 15:30 | NUR ---
PATIENT WAS PLACE ON PMIST BY RT AROUND 10:00 AM ORDERED BY MD. , PATIENT TOLERATED WELL, SATURATION BETWEEN 97-98%, NO S/S OF RESPIRATORY DISTRESS AT THIS TIME. WILL CONTINUE MONITORING PT.
[2020-02-13] MEDS: ACETAMINOPHEN 650 MG/20 ML UDC- SA PATIENTS-PAIN ONLY GT PRN (16:00)
--- NOTE | 2020-02-13 17:00 | NUR ---
PATIENT WITH AN EPISODE OF ANXIETY M/B RESTLESSNESS, ATIVAN GIVEN ORDERED. V/S WNL B/P 114/ 79 HR 102 SATURATING 97% .
--- NOTE | 2020-02-13 18:30 | NUR ---
PATIENT IN BED CALM AT THIS TIME, NO DISTRESS NOTED. WILL CONTINUE MONITORING.
[2020-02-13] MEDS: IV NS 1000 ML 1,000 ML IV PRN (18:33)
[2020-02-13 20:00] VITALS: BP 106/62
--- NOTE | 2020-02-13 20:30 | NUR ---
PT awake and has episode of anxious restless pulling out of t-piece no cooperative.RT put back to ventilator family keep calling pt by phone pt still anxious yelling for water.keep clean and good oral hygiene.continue monitor for anxious.
--- NOTE | 2020-02-13 23:30 | NUR ---
PT AWAKE ANXIOUS RESTLESS KEEP PULLING OUT OF TUBING AND TRACH YELLING AT NURSE.ATIVAN 1 MG WAS GIVEN VIA GT CALLED THAIS GRANDDAUGHTER REGRADING PT HAS ANXIOUS AND LET FAMILY TALK TO PT BY CELL PHONE.CONTINUE MONITOR NO SOB DISTRESS.
[2020-02-14] MEDS: ASCORBIC ACID 500 MG TABLET GT SCH (05:38)
[2020-02-14] MEDS: PANTOPRAZOLE ORAL SUSPENSION 40 MG SUSPDR.PKT GT SCH (05:38)
[2020-02-14] MEDS: PROTEIN SUPPLEMENT (PROSTAT) 30 ML LIQUID GT SCH ×4 (05:38→23:29)
--- NOTE | 2020-02-14 06:04 | NUR ---
right upperarm mid line patent, flushed per protocol.
[2020-02-14] MEDS: LORAZEPAM 1 MG TABLET GT PRN ×3 (07:52→22:21)
--- NOTE | 2020-02-14 08:00 | NUR ---
ATIVAN GIVEN PRN FOR RESTLESSNESS. SCREAMING, BANGING CALL LIGHT. GRAND DAUGHTER AWARE. PT KEPT COMFORTABLE POSSIBLE. CALL LIGHT AND PHONE WITHIN EASY REACH.
[2020-02-14] MEDS: ACETYLCYSTEINE 20% 800 MG/4 ML VIAL INH SCH ×3 (08:20→22:55)
[2020-02-14] MEDS: LEVALBUTEROL HCL NEB 0.63 MG/3 ML NEBU NEB SCH ×3 (08:20→22:55)
[2020-02-14 08:26] VITALS: BP 128/81
[2020-02-14] MEDS: VALPROIC ACID 250 MG/5 ML LIQUID UDC GT SCH ×3 (08:36→16:14)
[2020-02-14] MEDS: VITAMINS A AND D OINT TP SCH ×2 (08:37→21:00)
[2020-02-14] MEDS: METOPROLOL TARTRATE 25 MG TABLET GT SCH ×2 (08:37→21:59)
[2020-02-14] MEDS: COD LIVER OIL/ZINC OXIDE OINT 113 GM TUBE TP SCH ×2 (08:37→22:00)
[2020-02-14] MEDS: ZINC SULFATE 220 MG CAPSULE GT SCH (08:37)
[2020-02-14 08:49] LABS: BASOPHILS % (AUTO) 0.4 % (0.0-2.0); EOSINOPHILS # (AUTO) 0.1 K/uL (0.0-0.7); EOSINOPHILS % (AUTO) 0.7 % (0.0-7.0); HEMATOCRIT 27.5 % (36.7-47.1); HEMOGLOBIN 9.1 g/dL (12.5-16.3); LYMPHOCYTES # (AUTO) 1.3 K/uL (20.0-40.0); LYMPHOCYTES % (AUTO) 13.7 % (20.5-51.5); MEAN CORPUSCULAR HEMOGLOBIN 29.9 uug (23.8-33.4); MEAN CORPUSCULAR HGB CONC 33 g/dL (32.5-36.3); MEAN CORPUSCULAR VOLUME 90.1 fL (73.0-96.2); MONOCYTES # (AUTO) 1.2 K/uL (2.0-10.0); MONOCYTES % (AUTO) 12.3 % (0.0-11.0); NEUTROPHILS # (AUTO) 6.8 K/uL (1.8-8.9); NEUTROPHILS % (AUTO) 72.9 % (38.5-71.5); PLATELET COUNT (AUTO) 229 K/uL (152-348); RED BLOOD CELL COUNT(AUTO) 3.05 MIL/uL (4.06-5.63); WHITE BLOOD COUNT (AUTO) 9.4 K/uL (3.6-10.2)
[2020-02-14 08:51] LABS: CREATININE 0.9 mg/dL (0.6-1.3); POTASSIUM 3.5 mmol/L (3.5-5.1)
[2020-02-14] MEDS: HYDROCODONE/APAP 10-325 MG TABLET GT PRN ×2 (09:30→20:00)
[2020-02-14] MEDS: HYDROGEN PEROXIDE 3% 118 ML BOTTLE TP SCH ×2 (09:50→21:49)
--- NOTE | 2020-02-14 13:00 | NUR ---
Seen and examined by Dr Carmona, new orders orders.will continue on IV fluids NS at 100 CC/hr,midline on the R upper arm intact,pt continue on observation for episodes of agitation.
[2020-02-14] MEDS: IV NS 1000 ML 1,000 ML IV PRN ×2 (13:26→20:46)
[2020-02-14] MEDS: GLUCERNA 1.2 1000ML LIQUID GT PRN (15:59)
--- NOTE | 2020-02-14 20:00 | NUR ---
PT AWAKE RESPONSIVE AND HAS EPISODES OF AGITATION M/B RESTLESS YELLING SCREAMING AND FIGHTING WHEN RT PUT BACK TO VENTILATOR.ATIVAN 1 MG WAS GIVEN VIA GT ORDERED.PT STILL RESTLESS THROWN DIAPER AT BEDSIDE YELLING AND SCREAMING FOR WATER.FAMILY WAS CALLING AND NURSE WAS EXPLAIN TO FAMILY FOR PT'S CONDITION AND WILL PROVIDE APPROPRIATE INTERVENTIONS TO PT .PT ON IVF 100ML/HRS FOR HYDRATION KEEP CLEAN AND GOOD ORAL HYGIENE.CONTINUE MONITOR FOR AGITATION.
--- NOTE | 2020-02-14 20:50 | NUR ---
Pt received on cool aerosol, placed back on vent per md orders with ordered settings. Cuff inflated. Patient seems a bit agitated. RN aware. Vent alarms functioning and audible. Ambu-bag and back-up trach at bedside. Will continue to monitor pt throughout shift.
[2020-02-14 22:00] VITALS: BP 109/74
[2020-02-15] MEDS: HYDROCODONE/APAP 10-325 MG TABLET GT PRN ×4 (03:00→20:00)
[2020-02-15] MEDS: LORAZEPAM 1 MG TABLET GT PRN ×3 (04:30→21:30)
[2020-02-15] MEDS: ASCORBIC ACID 500 MG TABLET GT SCH (05:13)
[2020-02-15] MEDS: PANTOPRAZOLE ORAL SUSPENSION 40 MG SUSPDR.PKT GT SCH (05:13)
[2020-02-15] MEDS: PROTEIN SUPPLEMENT (PROSTAT) 30 ML LIQUID GT SCH ×4 (05:13→23:45)
--- NOTE | 2020-02-15 06:00 | NUR ---
PT AWAKE STARTED AGITATION M/B RESTLESS YELLING SCREAMING AM CARE WAS GIVEN BY MOTOR EQUIPMENT CAPTAIN.PT ON IVF NSS 100 ML/HRS.KEEP PT CLEAN AND COMFORTABLE .CONTINUE MONITOR FOR AGITATION.
--- NOTE | 2020-02-15 06:55 | NUR ---
Resident didn't sleep all night , was awake all night talking to his family using his cell phone ,when resident finally sleeping ,family started to talk to him, resident wake up and noted the patient very agitated,screaming,restless,swinging,and pulling life support devices,I explained to family '' please let him sleep don't wake him up or tomorrow next day is going to be sleeping during day time and he is not going to have energy to follow up activities '' family stated '' Ok thank you'' ,one hour later ,family started to wake him up and and noted resident started to be agitated,restless,screaming,and throwing his hospital gown and blankets away NOTE: Omar (RT)helped with the translation during this shift 7pm -7am .
[2020-02-15 06:58] LABS: CREATININE 0.9 mg/dL (0.6-1.3); POTASSIUM 3.6 mmol/L (3.5-5.1)
[2020-02-15 07:30] VITALS: BP 122/81
[2020-02-15] MEDS: ACETYLCYSTEINE 20% 800 MG/4 ML VIAL INH SCH ×3 (07:32→23:23)
[2020-02-15] MEDS: LEVALBUTEROL HCL NEB 0.63 MG/3 ML NEBU NEB SCH ×3 (07:32→23:23)
[2020-02-15] MEDS: VALPROIC ACID 250 MG/5 ML LIQUID UDC GT SCH ×3 (08:06→20:28)
[2020-02-15] MEDS: ZINC SULFATE 220 MG CAPSULE GT SCH (08:06)
[2020-02-15] MEDS: COD LIVER OIL/ZINC OXIDE OINT 113 GM TUBE TP SCH ×2 (08:06→20:28)
[2020-02-15] MEDS: METOPROLOL TARTRATE 25 MG TABLET GT SCH ×2 (08:06→21:12)
[2020-02-15] MEDS: VITAMINS A AND D OINT TP SCH ×2 (08:07→20:28)
[2020-02-15] MEDS: HYDROGEN PEROXIDE 3% 118 ML BOTTLE TP SCH ×2 (09:00→21:40)
--- NOTE | 2020-02-15 12:17 | NUR ---
10:00am: SW received a message from patient's granddaughter Jenae that the family has found a congregate facility where they would like to transfer the patient to, since this new facility has lao speaking staff. Jenae stated that the home care administrator of the facility would be contacting this SW soon to discuss eligibility for transfer. SW informed nurse edi manager Steve Ramos and COLTEN Santana of family's request to transfer patient to another facility. This SW also informed Dr. Faye of family's request, and Dr. Faye stated that the new facility needs to be able to provide ventilator care since patient is ventilator dependent.
--- NOTE | 2020-02-15 12:26 | NUR ---
11:59am: KASI received a call from Rishabh Bermudez, , Professional Security Officer/Tag Press Operator of [facility]. Rishabh stated that patient's granddaughter Jenae has requested for patient's to be transferred to [facility], located at [address] [place] [address]. Rishabh asked if this SW could fax patient's medical records to him for review. KASI stated that KASI will work on this request. Rishabh provided this SW with the fax # [phone].
--- NOTE | 2020-02-15 12:29 | NUR ---
KASI met with ANGELITO Mason, and informed her of patient's family's request to transfer patient to a congregate facility. DC orders for "DC planning per family's request" obtained from Genet Gama.
--- NOTE | 2020-02-15 12:38 | NUR ---
SEEN BY ANGELITO NOWAK WITH NEW ORDER NOTED AND CARRIED OUT.
--- NOTE | 2020-02-15 13:03 | NUR ---
Per family's request to transfer patient to [facility] in [place], this SW faxed patient's medical records for review to Rishabh Bermudez, Patient Access Specialist. ; tel # [phone]. The following records were faxed: Patient's face sheet List of current medication History and Physical, Dr. Carmona initial pulmonary consultation, Dr. Faye initial psychiatry consultation, Dr. Nesbitt most recent progress note, Dr Carmona most recent progress note, Dr. Faye most recent progress note, Dr. Nesbitt Initial PT, OT, and ST evaluations most recent PT, OT, and ST treatment notes SW awaiting to hear back from Rishabh.
[2020-02-15] MEDS: GLUCERNA 1.2 1000ML LIQUID GT PRN (13:18)
--- NOTE | 2020-02-15 13:28 | NUR ---
PT TAKING OF TRACH MASK. INSTRUCTED PT NOT TO TAKE OFF TRACH MASK. FIRST ASSIST IN ROOM INTERPRETING. PT AGITATED, RESTLESS, SCREAMING, SWINGING/PUSHING ARM AWAY, SQUEEZING HAND OF NURSE. PT NOT FOLLOWING DIRECTION,UNCOOPERATIVE.
--- NOTE | 2020-02-15 13:42 | NUR ---
1:00pm: LEROY Linder and Balta requested assistance from this SW due to patient being agitated. SW arrived to patient's room. Patient was in bed, observed to be agitated, screaming, restless, swinging his arms, and pulling off tach mask and tubes. SW speaks Greek, and therefore this SW tried to assess patient's needs and provide support, however even with several attempts, this SW was not able to redirect the patient. Patient presented with hallucinations, stating that his granddaughter was underneath the bed. Patient also stated that "someone came and took us to this place", however SW was unable to comprehend some of what patient was saying because patient began using Brazilian words intermittently. Both LEROY's Balta and Niyah tried to assist patient with putting his trach mask back on, however patient continued to pull at the tubes, push the nurses hands away, and grab and tightly squeeze Balta's hand. Balta and Niyah attempt this 2 more times, however patient's behavior was the same, where he continued to push the nurses hands away and pull the tubes. SW tried to reassure the patient that the oxygen mask was for his well-being, but patient expressed disbelief stating "i don't need it". LEROY Gifford informed the patient that she was going to administered some Tylenol via patient's g-tube, and patient asked if that was Tylenol or poison. SW reassured the patient that the nurse was giving the patient Tylenol, which was physician ordered. SW notified charge nurse Sriram and COLTEN Santana of above incident. SW also notified patient's psychiatrist Dr. Nesbitt. Waiting for further instructions/orders from Dr. Nesbitt.
--- NOTE | 2020-02-15 14:14 | NUR ---
KASI received a call back from Dr. Nesbitt. KASI consulted with Dr. Nesbitt regarding patient's behavior and need for additional interventions/meds. Dr. Nesbitt then spoke with tank charger Mario and provided new medication orders.
[2020-02-15] MEDS: ACETAMINOPHEN 650 MG/20 ML UDC- SA PATIENTS-PAIN ONLY GT PRN (14:50)
[2020-02-15] MEDS ORDERED: VALPROIC ACID 250 MG/5 ML LIQUID UDC GT ONE (15:00)
[2020-02-15] MEDS ORDERED: LORAZEPAM 1 MG TABLET GT ONE (15:00)
--- NOTE | 2020-02-15 15:35 | NUR ---
Spoke with Dr. Nesbitt, notified of patient condition (pulling tubes, trach bleeding, refusing O2, screaming while patient on facetime with family, banging the call light) sitter at bedside (approved by flight operations manager iFna) new orders given to increase valporic acid to 500mg gt q8hr, give extra dose of valporic acid 125mg gt x1, extra dose of ativan 1ml gt x1.
[2020-02-15] MEDS: IV NS 1000 ML 1,000 ML IV PRN (16:08)
--- NOTE | 2020-02-15 17:31 | NUR ---
KASI received a call from Rsoa, nurse at [facility], . Rosa confirmed receipt of the medical records this KASI faxed earlier today. Patient's needs were discussed. Rosa stated that she would review with Rishabh ([employer] Professional) tomorrow and they would call this KASI back for further information.
--- NOTE | 2020-02-15 18:20 | NUR ---
PT'S DAUGHTER KAITLYNN CALLED. INFORMED HER THAT FATHER IS ASLEEP. SCREAMING TO NURSE HOW PATIENT WILL SLEEP IF HE IS SLEEPING DURING THE DAY. INFORMED THE DAUGHTER THAT EXTRA DOSE OF ATIVAN 1 MG ORDERED BY IS FOR SAFETY OF PATIENT BEING. PT WAS PULLING OUT TRACH TUBE, GT AND TAKING OFF GOWN. DAUGHTER WAS AWARE AT THE TIME WHEN PT WAS RESTLESS. EVEN CALLED 30 MINUTES AFTER ATIVAN WAS GIVEN AND I INFORMED HER THAT FATHER IS SLEEPING NOW AND CALM. DAUGHTER NOW CLAIMS THAT NURSE NEVER INFORMED HER REGARDING FATHER'S BEHAVIOR. WHEN IN FACT NURSE MADE HER AWARE. DAUGHTER VERY UPSET AND SCREAMING WANTING TO TALK TO NURSE IN CHARGE. CHARGE NURSE TOOK OVER REST OF CONVERSATION.
--- NOTE | 2020-02-15 18:48 | NUR ---
Spoke with daughter Kendra, daughter very upset, because visitors are not allowed, directed concerns to community product specialist Steve alexandra.
[2020-02-15 20:28] VITALS: BP 151/92
[2020-02-16] MEDS: IV NS 1000 ML 1,000 ML IV PRN ×2 (02:34→14:36)
[2020-02-16] MEDS: VALPROIC ACID 250 MG/5 ML LIQUID UDC GT SCH (03:51)
[2020-02-16] MEDS: PROTEIN SUPPLEMENT (PROSTAT) 30 ML LIQUID GT SCH ×3 (05:40→17:37)
[2020-02-16] MEDS: ASCORBIC ACID 500 MG TABLET GT SCH (05:41)
[2020-02-16] MEDS: PANTOPRAZOLE ORAL SUSPENSION 40 MG SUSPDR.PKT GT SCH (05:41)
--- NOTE | 2020-02-16 07:06 | NUR ---
Increased Depakene 500 mg per Order every 8 hrs. dose given at 20:00 and 03:55 am After 2hrs of second dose (06:00) noted pt. calm and deep sleep vital signs B/P 127/70 , HR 115 , R 20 ,T 98.9 ,02 SAT 95% resident is responsive open eyes when suction trach and oral continue to monitor for HR and side effect of Depakene noted,endorsed to AM shift to continue monitor.
[2020-02-16] MEDS: LEVALBUTEROL HCL NEB 0.63 MG/3 ML NEBU NEB SCH ×3 (07:08→23:20)
[2020-02-16] MEDS: HYDROGEN PEROXIDE 3% 118 ML BOTTLE TP SCH ×2 (07:08→21:58)
[2020-02-16] MEDS: ACETYLCYSTEINE 20% 800 MG/4 ML VIAL INH SCH ×3 (07:08→23:20)
[2020-02-16 07:40] VITALS: BP 119/75
[2020-02-16 07:53] LABS: BASOPHILS % (AUTO) 0.4 % (0.0-2.0); HEMATOCRIT 24.5 % (36.7-47.1); HEMOGLOBIN 8.2 g/dL (12.5-16.3); LYMPHOCYTES # (AUTO) 0.4 K/uL (20.0-40.0); LYMPHOCYTES % (AUTO) 4.6 % (20.5-51.5); MEAN CORPUSCULAR HEMOGLOBIN 30.2 uug (23.8-33.4); MEAN CORPUSCULAR HGB CONC 33 g/dL (32.5-36.3); MEAN CORPUSCULAR VOLUME 90.5 fL (73.0-96.2); MONOCYTES # (AUTO) 0.5 K/uL (2.0-10.0); MONOCYTES % (AUTO) 5.3 % (0.0-11.0); NEUTROPHILS # (AUTO) 7.7 K/uL (1.8-8.9); NEUTROPHILS % (AUTO) 89.7 % (38.5-71.5); PLATELET COUNT (AUTO) 242 K/uL (152-348); RED BLOOD CELL COUNT(AUTO) 2.71 MIL/uL (4.06-5.63); WHITE BLOOD COUNT (AUTO) 8.6 K/uL (3.6-10.2)
[2020-02-16 08:07] LABS: BILIRUBIN,TOTAL 0.3 mg/dL (0.2-1.0); CREATININE 1.1 mg/dL (0.6-1.3); POTASSIUM 4.4 mmol/L (3.5-5.1)
[2020-02-16] MEDS: METOPROLOL TARTRATE 25 MG TABLET GT SCH ×2 (08:30→20:00)
[2020-02-16] MEDS: ZINC SULFATE 220 MG CAPSULE GT SCH (08:30)
[2020-02-16] MEDS: COD LIVER OIL/ZINC OXIDE OINT 113 GM TUBE TP SCH ×3 (08:31→21:11)
[2020-02-16] MEDS: VITAMINS A AND D OINT TP SCH ×2 (08:31→21:11)
[2020-02-16] MEDS: LORAZEPAM 1 MG TABLET GT PRN ×3 (08:40→21:55)
--- NOTE | 2020-02-16 08:40 | NUR ---
patient continues in bed, awake and restless, pulling on G-Tube ativan 1mg given as ordered by doctor. will continue monitoring.
--- NOTE | 2020-02-16 10:00 | NUR ---
Seen and examined by Afshan Leahy ,notified her pt has a increase of secretions, with bloody streaks secretions,lavage done by Rt.she will inform Dr Faye about the pt condition.
--- NOTE | 2020-02-16 10:33 | NUR ---
10:18am: This SW received a call from Rishabh Bermudez [phone], Military Science Teacher at [facility]. Rishabh stated that after reviewing patient's medical records for potential admission, that the patient has been accepted for admission. KASI stated that KASI would relay this information to patient's physician, and would work towards discharge/transfer, pending medical clearance. KASI stated that SW would contact Rishabh once SW received medical clearance from patient's physician. Rishabh expressed understanding and agreement. KASI also notified ANGELITO Mason, and COLTEN Santana of above.
--- NOTE | 2020-02-16 11:20 | NUR ---
New orders from Dr Faye for Abg tonight prior ventilator resumption,F/u Psychiatry ,consult neurology Dr Whitaker for Encephalopathy ? Covid related.
--- NOTE | 2020-02-16 11:24 | NUR ---
0715 patient in bed, v/s wnl. no s/s of any distress noted at this time. will continue to do frequent rounds.
--- NOTE | 2020-02-16 12:09 | NUR ---
new orders noted from Dr Laz Leahy,carried out,jairon depakenmechelle due increase liver function panel,repeat cmp amilase ,ammonia,abdominal ultrasound.
[2020-02-16 13:06] LABS: CREATININE 1.1 mg/dL (0.6-1.3); POTASSIUM 4.3 mmol/L (3.5-5.1)
[2020-02-16 13:12] LABS: BILIRUBIN,TOTAL 0.2 mg/dL (0.2-1.0); TOTAL PROTEIN, SERUM 6.2 g/dL (6.4-8.2)
--- NOTE | 2020-02-16 14:25 | NUR ---
Pt in distress with an SpO2 of 76% on 28% Cool Aerosol via Tpiece. Suctioned, breathing treatment given and increased FIO2 to help increase SpO2. Unable to achieve SpO2 >84%. Placed Pt back on ventilator with 44%-FIO2 (6LPM bleed in oxygen). NOA Davey & RETAIL COVERAGE MERCHANDISER LEAD Eve aware.
--- NOTE | 2020-02-16 14:30 | NUR ---
new orders to hold propylthiouracil and all the tylenol containing medications due to elevated AST/ALT.
--- NOTE | 2020-02-16 14:35 | NUR ---
Left message to Dr Faye regarding patient saturation is 76 % on p mist 28 %,connected to the ventilator after suctioning,o2 sat 94 %.
[2020-02-16] MEDS: GLUCERNA 1.2 1000ML LIQUID GT PRN (14:38)
--- NOTE | 2020-02-16 15:34 | NUR ---
INTERDISCIPLINARY PLAN OF CARE CONFERENCE was held this morning. Patient's granddaughter Jenae participated in the meeting through speaker phone. Dr. Faye and the Interdisciplinary team reviewed the current plan of care in detail. RN reported on the patient's medical condition, recent lab findings, and ordered treatments. See RN IDT conference notes. ST, OT and PT reported on patient's current treatment plan and progress. Patient's behavioral changes were discussed. See all disciplines IDT notes and physician's progress notes for additional details. Jenae's discussed her request to transfer the patient to another facility, however Dr. Faye discussed the necessary steps needed for a medical clearance before discharge, including a neurology consultation which RN will arrange. Jenae expressed understanding, however expressed her wishes for transferring patient as soon as possible. This SW, along with IDT team, will follow-up on family's request after obtaining medical clearance from physicians.
--- NOTE | 2020-02-16 15:35 | NUR ---
PATIENT RESTLESS , PULLING GTUBE AND TAKING OFF DIAPER , ATIVAN 1MG GIVEN ORDERED. WILL CONTINUE MONITORING.
--- NOTE | 2020-02-16 15:44 | NUR ---
Seen and examined by Dr Be with new orders noted to dc IV fluids,he will talk to the family and will explain to then ,regarding the pt condition.
--- NOTE | 2020-02-16 16:11 | NUR ---
This SW informed by Dr. King that after he assessed the patient and spoke with the family, the family has agreed to postpone transferring the patient, pending further labs and treatment. SW will continue to work with the IDT team and patient's family to ensure a safe, appropriate, and timely discharge to family's facility of choice.
--- NOTE | 2020-02-16 16:15 | NUR ---
This SW called patient's daughter Kendra, in response to a voicemail message Kendra had left this SW. Kendra stated that she just finished speaking with patient's physician Dr. King regarding patient's current medical condition. Kendra expressed understanding and agreement with the postponement in transferring patient to the congregate facility that the family had chosen for the patient. SW stated that SW will work with patient's physician's and IDT team to ensure a safe and proper discharge, when medically appropriate. Kendra expressed agreement. Kendra then expressed frustration with not being able to see the patient, and her concerns that patient may feel abandoned, which may be causing him to become agitated. SW validated Kendra's feelings, acknowledged the challenges of the current COVID-19 visitation restrictions, and provided supportive counseling. Kendra was receptive to this SW's support, however continued to express frustration with not being able to be with the patient while he is in the hospital. SW assured Kendra that the IDT team and physician's are providing the necessary care to the patient to ensure patient's safety and well-being, and that as soon as it was medically appropriate, this SW would work on family's request to transfer patient to the congregate home that family has chosen. Kendra thanked this SW for her time and support. SW to follow-up with physicians and IDT team for DC planning, when medically appropriate.
--- NOTE | 2020-02-16 16:57 | NUR ---
New orders from Dr Be to keep the pt 1:1,due to agitation anfd trying to pull the tubes.
[2020-02-16 17:00] LABS: ABG BASE EXCESS 3.4 mmol/L; ABG HCO3 25.9 mmol/L; ABG PCO2 30.9 mmHg (35.0-45.0); ABG PH 7.541 (7.350-7.450); ABG PO2 63.5 mmHg (75.0-100.0); ABG SITE LEFT RADIAL; ABG TOTAL HEMOGLOBIN 8.7 G/dL (13.5-18.0); COHb 0.6 % (0.5-1.5); MetHb 0.2 % (0.0-1.5); O2Hb 92.3 % (94.0-97.0); VENT MODE coool aerosol tpiece
--- NOTE | 2020-02-16 17:05 | NUR ---
Pt placed on 28%-C/A and ABG drawn. Results reported to NOA Davey. Pt placed back on continuous mechanical ventilation with previous settings. 3LPM bleed-in Oxygen. SpO2 94%. Tolerating settings well. No respiratory distress noted.
--- NOTE | 2020-02-16 17:16 | NUR ---
Dr Whitaker anotified about the neurology consult,Pt still has episodes of agitation trying to pull the tubes,uncovering himself and trowing the linen to the floor.
--- NOTE | 2020-02-16 17:58 | NUR ---
Dr Pollard notified regarding ABG results ,no new orders at this time,Pt Connected back to the ventilator.
--- NOTE | 2020-02-16 18:32 | NUR ---
PATIENT CONTINUES WITH EPISODES OF AGITATION, PULLING TUBES, TAKING OFF GOWN, TROWING PILLOWS ON FLOOR, ATIVAN WAS GIVEN AT 1535 AND IT WAS NOT EFFECTIVE. WILL CONTINUE FREQUENT ROUNDS.
--- NOTE | 2020-02-16 19:19 | NUR ---
left buttock excoriation noted, Desitin and mepilex ordered by MD. will continue monitoring.
[2020-02-16 20:57] VITALS: BP 175/97
--- NOTE | 2020-02-16 20:59 | NUR ---
granddaughter, herbert called and asking name of psychitrist, told her dr reed.
[2020-02-16 21:50] VITALS: BP 149/84
--- NOTE | 2020-02-16 21:56 | NUR ---
Resident noted to be agitated Trying to pull life sustaining devices , removing hospital gown ,blankets, Ativan 1mg given per GT as ordered ,sitter remains at bed side ,all needs attended ,call light within easy reach.
[2020-02-16] MEDS ORDERED: DIATR MEGLU/DIATRIZOATE SODIUM 30 ML BOTTLE ONE (23:18)
--- NOTE | 2020-02-17 | NUR ---
KUB abdominal ultrasound with Gastrografin done by Radiology department to confirm GT placement D/T Resident pulled out GT AT 22:40 remains with agitation and anxiety Sitter remains at bedside,with frequent visual check by staff continue to monitor ,call light within easy reach.
--- NOTE | 2020-02-17 00:25 | NUR ---
KUB results received by radiology department with positive placement ,feeding turned on with 10 ml residual noted HOB up at all the times (45 degree angle) Sitter remains at bedside all needs attended ,call light within easy reach.
[2020-02-17] MEDS: PROTEIN SUPPLEMENT (PROSTAT) 30 ML LIQUID GT SCH ×4 (01:15→17:14)
[2020-02-17] MEDS: LORAZEPAM 1 MG TABLET GT PRN ×2 (03:56→13:06)
--- NOTE | 2020-02-17 04:00 | NUR ---
Ativan 1mg GT given for anxiety episode trying to pull out life sustaining devices ,removing hospital gown,diaper,blankets,provided distraction,reposition,Sitter remains at bedside ,continue to monitor,call light within easy reach.
[2020-02-17] MEDS: ASCORBIC ACID 500 MG TABLET GT SCH (05:53)
[2020-02-17] MEDS: PANTOPRAZOLE ORAL SUSPENSION 40 MG SUSPDR.PKT GT SCH (05:53)
[2020-02-17 06:41] LABS: BILIRUBIN,TOTAL 0.3 mg/dL (0.2-1.0); CREATININE 0.9 mg/dL (0.6-1.3); POTASSIUM 3.3 mmol/L (3.5-5.1); TOTAL PROTEIN, SERUM 6.3 g/dL (6.4-8.2)
[2020-02-17 06:50] LABS: BASOPHILS # (AUTO) 0.1 K/uL (0.0-8.0); BASOPHILS % (AUTO) 0.7 % (0.0-2.0); EOSINOPHILS % (AUTO) 0.4 % (0.0-7.0); HEMATOCRIT 24.6 % (36.7-47.1); HEMOGLOBIN 8.5 g/dL (12.5-16.3); LYMPHOCYTES # (AUTO) 1.4 K/uL (20.0-40.0); LYMPHOCYTES % (AUTO) 13.7 % (20.5-51.5); MEAN CORPUSCULAR HEMOGLOBIN 30.6 uug (23.8-33.4); MEAN CORPUSCULAR HGB CONC 35 g/dL (32.5-36.3); MEAN CORPUSCULAR VOLUME 88.8 fL (73.0-96.2); NEUTROPHILS # (AUTO) 7.6 K/uL (1.8-8.9); NEUTROPHILS % (AUTO) 75.2 % (38.5-71.5); PLATELET COUNT (AUTO) 268 K/uL (152-348); RED BLOOD CELL COUNT(AUTO) 2.77 MIL/uL (4.06-5.63)
--- NOTE | 2020-02-17 07:15 | NUR ---
PATIENT IN BED, WITH AN EPISODE OF ANXIETY, TRYING TO PULL G-TUBE FEEDING, BED BATH GIVEN BY INTERNATIONAL TRAVEL CONSULTANT, PATIENT WAS REPOSITION , KEPT CLEAN AND DRY. WILL CONTINUE MONITORING AND DOING FREQUENT VISUAL ROUNDS. SITTER AT BED SIDE AT ALL TIMES.
[2020-02-17 07:30] VITALS: BP 102/60
[2020-02-17] MEDS: ACETYLCYSTEINE 20% 800 MG/4 ML VIAL INH SCH ×2 (07:40→15:30)
[2020-02-17] MEDS: HYDROGEN PEROXIDE 3% 118 ML BOTTLE TP SCH (07:40)
[2020-02-17] MEDS: LEVALBUTEROL HCL NEB 0.63 MG/3 ML NEBU NEB SCH ×2 (07:40→15:30)
[2020-02-17] MEDS: ZINC SULFATE 220 MG CAPSULE GT SCH (08:09)
[2020-02-17] MEDS: METOPROLOL TARTRATE 25 MG TABLET GT SCH (08:09)
[2020-02-17] MEDS: COD LIVER OIL/ZINC OXIDE OINT 113 GM TUBE TP SCH ×2 (08:09→08:10)
[2020-02-17] MEDS: VITAMINS A AND D OINT TP SCH (08:10)
--- NOTE | 2020-02-17 09:55 | NUR ---
0945 PT TAKEN OFF VENT AND PLACED ON COOL AEROSOL WITH PMV FOR SPEECH THERAPY EVALUATION. PT DID NOT TOLERATE PMV AND COOL AEROSOL. PT HAD LABORED BREATHING AND COMPLAINED OF SOB. PT THEN PLACED BACK ON VENT AND APPEARS COMFORTABLE. WILL CONTINUE TO MONITOR.
[2020-02-17] MEDS ORDERED: POTASSIUM CHLORIDE 20 MEQ POWDER PACKET GT ONE (10:30)
--- NOTE | 2020-02-17 13:00 | NUR ---
patient with an episode of agitation, trying to pull tubes , gtube and taking off gown, ativan 1mg given as ordered, will continue monitoring.
--- NOTE | 2020-02-17 14:30 | NUR ---
patient in bed, awake no s/s of any distress noted, phone and call light in place, sitter at bed side.
--- NOTE | 2020-02-17 14:48 | NUR ---
KASI called Rishabh Bermudez, branch administrator at [facility] and informed him that patient is still pending medical clearance before finalizing discharge plan and transfer. Rishabh expressed understanding. KASI will notify Rishabh when patient's physicians provide medical clearance for transfer. Rishabh expressed agreement.
[2020-02-17 17:45] VITALS: BP 120/60
--- NOTE | 2020-02-17 18:00 | NUR ---
pt on close observation 1:1 sitter sitting at bedside at all times.
--- NOTE | 2020-02-17 18:16 | NUR ---
STAT EKG DONE PER MD WEINER ORDER. RESULTS SVT. PT TRANSFERRED TO ER VIA HT 50 VENT. WILL CONTINUE TO MONITOR
--- NOTE | 2020-02-17 18:44 | NUR ---
LE 1815 Dr Faye aware pt Hr is 169 to 175,Ekg done shows SVT 175,seen and examined by Dr Faye with new orders to transfer pt to ER for evaluation,spoke to Jenae bragg's granddaughter and aware of the new orders,pt was transfered to ER accompanied by 2 rt's and a nurse ,report given to Mikey Fatima.
[2020-02-17] MEDS ORDERED: NUT.237L30 GT (18:47)
[2020-02-17] MEDS ORDERED: COD56OIN TP ×2 (18:47)
[2020-02-17] MEDS ORDERED: PANTOPRAZOLE GT (18:58)
[2020-02-17] MEDS ORDERED: PETR454O TP (18:58)
--- NOTE | 2020-02-18 10:12 | NUR ---
This SW and machine adjuster leader case trim Laureano spoke to discuss patient's coordination of care after hospitalization, and family's request for patient to go to [facility]. It was agreed that this SW would contact Rishabh, legal administrator of [facility], to provide him with an status update on the patient's transfer, and inform Rishabh that case management would now be involved in the care coordination/discharge planning. SW then called Rishabh [phone] and was able to speak with him. SW provide an update to Rishabh and informed him that case management would be in touch with him for discharge planning. Rishabh expressed understanding and agreement.
[2020-02-18] MEDS ORDERED: PANTOPRAZOLE ORAL SUSPENSION 40 MG SUSPDR.PKT GT SCH (16:20)
[2020-02-22] MEDS ORDERED: risperiDONE 0.25 MG TABLET PO PRN (18:45)
[2020-02-22] MEDS ORDERED: risperiDONE 0.25 MG TABLET PO SCH (20:00)
[2020-02-25] MEDS ORDERED: levoFLOXacin GT (11:40)
[2020-02-25] MEDS ORDERED: ACID1TAB4 GT (11:40)
[2020-02-25] MEDS ORDERED: DILT30TA33 GT (11:40)
[2020-02-25] MEDS ORDERED: ASCO500T21 GT (11:40)
[2020-02-25] MEDS ORDERED: MENT71OI TOP (11:40)
[2020-02-25] MEDS ORDERED: PROT30LI GT (11:40)
[2020-02-25] MEDS ORDERED: RISP0.5T5 PO (11:40)
[2020-02-25] MEDS ORDERED: DOCU250C14 GT (11:40)
[2020-02-25] MEDS ORDERED: PANT40SU2 GT (11:40)
[2020-02-25] MEDS ORDERED: ACET325T53 GT (11:40)
[2020-02-25] MEDS ORDERED: LORA0.5T48 GT (11:40)
[2020-02-25] MEDS ORDERED: MERO500V21 IV (11:40)
== END 2020-02-17 20:33 | disposition short-term general hospital (02) | DRG 130 ==
LOC: SA 21:57
PROVIDERS: ADMIT Family Medicine; ATTEND Internal Medicine Pulmonary Disease
PROC: 5A1935Z Respiratory Ventilation, Less than 24 Consecutive Hours (ICD-10-PCS; principal; 2020-01-08)
PROC: 5A1955Z Respiratory Ventilation, Greater than 96 Consecutive Hours (ICD-10-PCS; 2020-01-09)
PROC: 05H733Z Insertion of Infusion Device into Right Axillary Vein, Percutaneous Approach (ICD-10-PCS; 2020-02-14)
DX: J96.21 Acute and chronic respiratory failure with hypoxia (principal); D50.0 Iron deficiency anemia secondary to blood loss (chronic); I48.91 Unspecified atrial fibrillation; G93.41 Metabolic encephalopathy; I69.354 Hemiplegia and hemiparesis following cerebral infarction affecting left non-dominant side; D64.9 Anemia, unspecified; D68.59 Other primary thrombophilia; D69.6 Thrombocytopenia, unspecified; E05.90 Thyrotoxicosis, unspecified without thyrotoxic crisis or storm; E27.40 Unspecified adrenocortical insufficiency; E43 Unspecified severe protein-calorie malnutrition; F01.50 Vascular dementia, unspecified severity, without behavioral disturbance, psychotic disturbance, mood disturbance, and anxiety; F41.9 Anxiety disorder, unspecified; I11.0 Hypertensive heart disease with heart failure; I50.9 Heart failure, unspecified; I25.2 Old myocardial infarction; I25.10 Atherosclerotic heart disease of native coronary artery without angina pectoris; I47.1 Supraventricular tachycardia; Z86.718 Personal history of other venous thrombosis and embolism; Z86.19 Personal history of other infectious and parasitic diseases; M54.30 Sciatica, unspecified side; N17.9 Acute kidney failure, unspecified; R13.10 Dysphagia, unspecified; R53.2 Functional quadriplegia; Z78.1 Physical restraint status; Z87.440 Personal history of urinary (tract) infections; Z93.0 Tracheostomy status; R53.81 Other malaise
CPT/HCPCS: 36415; 36600; 71045; 74018; 76700; 80164; 83550; 83735; 84100; 84443; 85025; 86140; 86580; 87070; 87086; 90686; 93005; 94002; 94003; 94640; C1758; J1650; J3490; J7614; Q9963; U0003

== ENCOUNTER 2020-02-03 07:33 | Emergency (ER) | payer MEDICAID ==
[~2020-02-03] VITALS: Ht 175.3 cm; Wt 83.9 kg
[2020-02-03] MEDS ORDERED: LORAZEPAM 2 MG/1 ML VIAL ONE (07:51)
[2020-02-03] MEDS ORDERED: LEVA0.6320 NEB (07:53)
[2020-02-03] MEDS ORDERED: ACET-2154 GT (07:53)
[2020-02-03] MEDS ORDERED: ASCO500P18 GT (07:53)
[2020-02-03] MEDS ORDERED: HYDR-4354 GT (07:53)
[2020-02-03] MEDS ORDERED: HYDR1SOL TOP (07:53)
[2020-02-03] MEDS ORDERED: BENZ1LOZ77 SL (07:53)
[2020-02-03] MEDS ORDERED: ZINC57OI3 TP (07:53)
[2020-02-03] MEDS ORDERED: ACET100V4 INH (07:53)
[2020-02-03] MEDS: LORAZEPAM 2 MG/1 ML VIAL IV ONE (08:05)
[2020-02-03] MEDS ORDERED: MAGN400O6 GT (08:18)
[2020-02-03] MEDS ORDERED: MAG355OR18 GT (08:18)
[2020-02-03] MEDS ORDERED: ONDA4TAB5 GT (08:18)
[2020-02-03] MEDS ORDERED: AMIN30LI2 GT (08:18)
[2020-02-03] MEDS ORDERED: HYDR-4075 GT (08:18)
[2020-02-03] MEDS ORDERED: LORA-259 GT (08:18)
[2020-02-03] MEDS ORDERED: PETR113O TP (08:18)
[2020-02-03] MEDS ORDERED: PROP50TA3 GT (08:18)
[2020-02-03] MEDS ORDERED: VALP250S22 GT (08:18)
[2020-02-03] MEDS ORDERED: PANT40TA49 GT (08:18)
[2020-02-03] MEDS ORDERED: METO25TA6 GT (08:18)
[2020-02-03] MEDS ORDERED: ZINC1CAP2 GT (08:18)
[2020-02-03 08:29] LABS: BILIRUBIN,DIRECT 0.1 mg/dL (0.0-0.2); BILIRUBIN,TOTAL 0.3 mg/dL (0.2-1.0); CREATININE 0.8 mg/dL (0.6-1.3); POTASSIUM 4.4 mmol/L (3.5-5.1); TOTAL PROTEIN, SERUM 7.2 g/dL (6.4-8.2)
[2020-02-03] MEDS ORDERED: HYDROCODONE/APAP 5-325MG TABLET ONE (09:14)
[2020-02-03] MEDS: HYDROCODONE/APAP 5-325MG TABLET GT ONE (09:19)
--- NOTE | 2020-02-03 10:00 | NUR ---
called pt grand daughter, Jenae, to talk to pt and translate. per Jenae, ptis not complaining of any medical issues, he is nervous about what is gonne happen to him in er. Jenae explained to the pt about the plan of care for the pt. pt more comfortable now.
[2020-02-03 10:52] LABS: BASOPHILS # (AUTO) 0.1 K/uL (0.0-8.0); EOSINOPHILS # (AUTO) 0.1 K/uL (0.0-0.7); EOSINOPHILS % (AUTO) 0.6 % (0.0-7.0); HEMATOCRIT 29.1 % (36.7-47.1); HEMOGLOBIN 9.7 g/dL (12.5-16.3); LYMPHOCYTES # (AUTO) 0.8 K/uL (20.0-40.0); LYMPHOCYTES % (AUTO) 8.9 % (20.5-51.5); MEAN CORPUSCULAR HEMOGLOBIN 29.6 uug (23.8-33.4); MEAN CORPUSCULAR HGB CONC 33 g/dL (32.5-36.3); MEAN CORPUSCULAR VOLUME 88.9 fL (73.0-96.2); MONOCYTES # (AUTO) 0.7 K/uL (2.0-10.0); MONOCYTES % (AUTO) 7.7 % (0.0-11.0); NEUTROPHILS # (AUTO) 7.7 K/uL (1.8-8.9); NEUTROPHILS % (AUTO) 81.8 % (38.5-71.5); PLATELET COUNT (AUTO) 173 K/uL (152-348); RED BLOOD CELL COUNT(AUTO) 3.27 MIL/uL (4.06-5.63); WHITE BLOOD COUNT (AUTO) 9.4 K/uL (3.6-10.2)
--- NOTE | 2020-02-03 11:50 | NUR ---
WAGNER LUJAN AT BEDSIDE.
--- NOTE | 2020-02-03 12:45 | NUR ---
Pt trans back to Sub Acute floor by myself and TELEVISION SERVICER as per order. NAD noted upon transfer, SBAR report given to Tamica LATHAM.
== END 2020-02-03 13:01 ==
LOC: ER 07:35
DX: R07.89 Other chest pain (principal); F41.9 Anxiety disorder, unspecified; R00.0 Tachycardia, unspecified; Z93.0 Tracheostomy status; J96.10 Chronic respiratory failure, unspecified whether with hypoxia or hypercapnia; B94.8 Sequelae of other specified infectious and parasitic diseases; Z87.891 Personal history of nicotine dependence; I10 Essential (primary) hypertension; Z86.718 Personal history of other venous thrombosis and embolism; J44.9 Chronic obstructive pulmonary disease, unspecified; E03.9 Hypothyroidism, unspecified; D64.9 Anemia, unspecified
CPT/HCPCS: 70030-TC; 71045; 84443; 85025; 85730; 93005; 94003; A4663; J2060

== ENCOUNTER 2020-02-17 18:06 | Inpatient (IN) | payer MEDICAID ==
[~2020-02-17] VITALS: Ht 185.4 cm; Wt 88.5 kg
[~2020-02-17 18:06] MED LIST: ACET-2154 GT; ACET100V4 INH; AMIN30LI2 GT; ASCO500P18 GT; BENZ1LOZ77 SL; HYDR-4075 GT; HYDR-4354 GT; HYDR1SOL TOP; LEVA0.6320 NEB; LORA-259 GT; MAG355OR18 GT; MAGN400O6 GT; METO25TA6 GT; ONDA4TAB5 GT; PANT40TA49 GT; PETR113O TP; PROP50TA3 GT; VALP250S22 GT; ZINC1CAP2 GT; ZINC57OI3 TP
[2020-02-17] MEDS ORDERED: METOPROLOL TARTRATE 5 MG/5 ML VIAL IVP ONE ×2 (18:23→18:30)
[2020-02-17] MEDS ORDERED: IV NORMAL SALINE 250 ML BAG IV ONE (18:30)
[2020-02-17] MEDS ORDERED: DILTIAZEM HCL 25 MG IV IV ONE ×2 (18:45→19:15)
[2020-02-17] MEDS ORDERED: DILTIAZEM HCL 25 MG IV ONE (18:46)
[2020-02-17] MEDS ORDERED: NUT.237L30 GT (18:47)
[2020-02-17] MEDS ORDERED: COD56OIN TP ×2 (18:47)
[2020-02-17] MEDS ORDERED: PANTOPRAZOLE GT (18:58)
[2020-02-17] MEDS ORDERED: PETR454O TP (18:58)
[2020-02-17 19:05] LABS: BASOPHILS # (AUTO) 0.2 K/uL (0.0-8.0); BASOPHILS % (AUTO) 1.1 % (0.0-2.0); CREATININE 0.9 mg/dL (0.6-1.3); EOSINOPHILS # (AUTO) 0.4 K/uL (0.0-0.7); EOSINOPHILS % (AUTO) 2.9 % (0.0-7.0); HEMATOCRIT 26.8 % (36.7-47.1); HEMOGLOBIN 9.1 g/dL (12.5-16.3); LYMPHOCYTES # (AUTO) 1.6 K/uL (20.0-40.0); LYMPHOCYTES % (AUTO) 10.7 % (20.5-51.5); MEAN CORPUSCULAR HEMOGLOBIN 30.5 uug (23.8-33.4); MEAN CORPUSCULAR HGB CONC 34 g/dL (32.5-36.3); MEAN CORPUSCULAR VOLUME 89.6 fL (73.0-96.2); MONOCYTES # (AUTO) 1.5 K/uL (2.0-10.0); MONOCYTES % (AUTO) 10.1 % (0.0-11.0); NEUTROPHILS # (AUTO) 11.2 K/uL (1.8-8.9); NEUTROPHILS % (AUTO) 75.2 % (38.5-71.5); PLATELET COUNT (AUTO) 339 K/uL (152-348); POTASSIUM 3.9 mmol/L (3.5-5.1); RED BLOOD CELL COUNT(AUTO) 2.99 MIL/uL (4.06-5.63); WHITE BLOOD COUNT (AUTO) 14.8 K/uL (3.6-10.2)
[2020-02-17] MEDS ORDERED: DILTIAZEM HCL 50 MG IV ONE (19:09)
[2020-02-17 19:17] LABS: BILIRUBIN,DIRECT 0.1 mg/dL (0.0-0.2); BILIRUBIN,TOTAL 0.3 mg/dL (0.2-1.0); TOTAL PROTEIN, SERUM 6.7 g/dL (6.4-8.2)
[2020-02-17] MEDS ORDERED: levoFLOXacin 750 MG/D5W 150 ML PIGGYBACK IV ONE (19:30)
[2020-02-17] MEDS ORDERED: levoFLOXacin 750MG/D5W 150 ML IV ONE (19:34)
[2020-02-17] MEDS: DILTIAZEM HCL IV 125 MG in IV DEXTROSE 5% 100 ML IV SCH (19:34)
[2020-02-17] MEDS ORDERED: DILTIAZEM HCL IV 125 MG in IV NORMAL SALINE 100 ML IV PRN ×2 (19:45→22:30)
[2020-02-17] MEDS ORDERED: FUROSEMIDE 40 MG/4 ML VIAL IV ONE ×2 (19:45)
[2020-02-17] MEDS ORDERED: ONDANSETRON 4 MG/2 ML VIAL IV PRN (19:45)
[2020-02-17] MEDS ORDERED: NEOMY/BACITRA/POLYMYXIN B OINT UD PACKET TP ONE (20:00)
[2020-02-17] MEDS ORDERED: MAGNESIUM HYDROXIDE 30 ML LIQUID UDC GT SCH (20:00)
[2020-02-17] MEDS ORDERED: MAG HYDROX/AL HYDROX/SIMETH 30 ML LIQUID UDC GT PRN ×2 (20:00→22:30)
[2020-02-17] MEDS ORDERED: LORAZEPAM 1 MG TABLET GT SCH (20:00)
[2020-02-17 21:00] VITALS: BP 123/82
[2020-02-17 21:15] VITALS: BP 114/81
[2020-02-17 21:30] VITALS: BP 121/52
[2020-02-17 22:00] VITALS: BP 137/77
[2020-02-17] MEDS: METOPROLOL TARTRATE 25 MG TABLET GT SCH (22:05)
[2020-02-17] MEDS: ACETAMINOPHEN 325 MG TABLET GT PRN (22:06)
[2020-02-17] MEDS ORDERED: LORAZEPAM 1 MG TABLET GT PRN (22:15)
[2020-02-17] MEDS ORDERED: GLUCERNA 1.2 1000ML LIQUID GT SCH (22:15)
[2020-02-17] MEDS ORDERED: MAGNESIUM HYDROXIDE 30 ML LIQUID UDC GT PRN (22:30)
[2020-02-17 23:00] VITALS: BP 124/74
[2020-02-18] VITALS (37 sets, daily range): BP systolic 79–149; BP diastolic 44–103
[2020-02-18] MEDS: PROTEIN SUPPLEMENT (PROSTAT) 30 ML LIQUID GT SCH ×4 (00:35→18:15)
[2020-02-18] MEDS: DILTIAZEM HCL IV 125 MG in IV DEXTROSE 5% 100 ML IV SCH (01:59)
[2020-02-18] MEDS ORDERED: IV NORMAL SALINE 250 ML IV ONE (02:45)
[2020-02-18] MEDS: LORAZEPAM 2 MG/1 ML VIAL IV PRN ×4 (02:49→21:48)
[2020-02-18 05:13] LABS: BASOPHILS # (AUTO) 0.1 K/uL (0.0-8.0); BASOPHILS % (AUTO) 0.4 % (0.0-2.0); EOSINOPHILS % (AUTO) 0.1 % (0.0-7.0); HEMATOCRIT 24.6 % (36.7-47.1); HEMOGLOBIN 8.3 g/dL (12.5-16.3); LYMPHOCYTES # (AUTO) 1.6 K/uL (20.0-40.0); LYMPHOCYTES % (AUTO) 10.7 % (20.5-51.5); MEAN CORPUSCULAR HEMOGLOBIN 30.1 uug (23.8-33.4); MEAN CORPUSCULAR HGB CONC 34 g/dL (32.5-36.3); MEAN CORPUSCULAR VOLUME 89.1 fL (73.0-96.2); NEUTROPHILS # (AUTO) 11.9 K/uL (1.8-8.9); NEUTROPHILS % (AUTO) 81.8 % (38.5-71.5); PLATELET COUNT (AUTO) 307 K/uL (152-348); RED BLOOD CELL COUNT(AUTO) 2.76 MIL/uL (4.06-5.63); WHITE BLOOD COUNT (AUTO) 14.5 K/uL (3.6-10.2)
[2020-02-18] MEDS: ACETAMINOPHEN 325 MG TABLET GT PRN ×3 (05:27→20:01)
[2020-02-18 05:31] LABS: THYROID STIMULATING HORMONE 1.603 mIU/mL (0.358-3.740)
[2020-02-18 05:36] LABS: BILIRUBIN,TOTAL 0.4 mg/dL (0.2-1.0); MAGNESIUM 1.9 mg/dL (1.8-2.4); PHOSPHOROUS 3.5 mg/dL (2.5-4.9); POTASSIUM 3.2 mmol/L (3.5-5.1); TOTAL PROTEIN, SERUM 6.3 g/dL (6.4-8.2)
[2020-02-18] MEDS ORDERED: PHENYLEPHRINE IV 50 MG in IV NORMAL SALINE 245 ML IV PRN (08:30)
[2020-02-18] MEDS ORDERED: IV NORMAL SALINE 500 ML IV ONE (08:30)
[2020-02-18] MEDS: PANTOPRAZOLE SODIUM 40 MG VIAL IV SCH (08:52)
[2020-02-18] MEDS: ASCORBIC ACID 500 MG TABLET GT SCH (08:52)
[2020-02-18] MEDS: METOPROLOL TARTRATE 25 MG TABLET GT SCH ×3 (09:00→20:00)
[2020-02-18] MEDS ORDERED: VALPROIC ACID 250 MG/5 ML LIQUID UDC GT SCH (09:00)
[2020-02-18] MEDS: POTASSIUM CHLORIDE 50 ML IV SCH ×4 (09:23→12:26)
[2020-02-18] MEDS: ENOXAPARIN SODIUM 40 MG/0.4 ML DISP.SYRIN SQ SCH (18:12)
[2020-02-18] MEDS: levoFLOXacin 750MG/D5W 750 MG in PREMIXED 1 EACH IV SCH (20:00)
[2020-02-19] VITALS (24 sets, daily range): BP systolic 80–161; BP diastolic 52–111
[2020-02-19] MEDS: PROTEIN SUPPLEMENT (PROSTAT) 30 ML LIQUID GT SCH ×4 (00:10→17:43)
[2020-02-19] MEDS: ACETAMINOPHEN 325 MG TABLET GT PRN ×4 (03:06→20:00)
[2020-02-19 05:06] LABS: BASOPHILS # (AUTO) 0.1 K/uL (0.0-8.0); BASOPHILS % (AUTO) 0.5 % (0.0-2.0); EOSINOPHILS # (AUTO) 0.1 K/uL (0.0-0.7); EOSINOPHILS % (AUTO) 0.6 % (0.0-7.0); HEMATOCRIT 24.5 % (36.7-47.1); HEMOGLOBIN 8.4 g/dL (12.5-16.3); LYMPHOCYTES % (AUTO) 9.6 % (20.5-51.5); MEAN CORPUSCULAR HEMOGLOBIN 30.5 uug (23.8-33.4); MEAN CORPUSCULAR HGB CONC 34 g/dL (32.5-36.3); MEAN CORPUSCULAR VOLUME 89.2 fL (73.0-96.2); MONOCYTES # (AUTO) 0.9 K/uL (2.0-10.0); MONOCYTES % (AUTO) 8.2 % (0.0-11.0); NEUTROPHILS # (AUTO) 8.4 K/uL (1.8-8.9); NEUTROPHILS % (AUTO) 81.1 % (38.5-71.5); PLATELET COUNT (AUTO) 280 K/uL (152-348); RED BLOOD CELL COUNT(AUTO) 2.75 MIL/uL (4.06-5.63); WHITE BLOOD COUNT (AUTO) 10.4 K/uL (3.6-10.2)
[2020-02-19 05:20] LABS: BILIRUBIN,DIRECT 0.1 mg/dL (0.0-0.2); BILIRUBIN,TOTAL 0.4 mg/dL (0.2-1.0); CREATININE 0.9 mg/dL (0.6-1.3); MAGNESIUM 1.9 mg/dL (1.8-2.4); PHOSPHOROUS 3.5 mg/dL (2.5-4.9); POTASSIUM 3.2 mmol/L (3.5-5.1); TOTAL PROTEIN, SERUM 6.2 g/dL (6.4-8.2)
[2020-02-19 07:47] LABS: ABG BASE EXCESS 5.4 mmol/L; ABG PO2 100.9 mmHg (75.0-100.0); ABG SITE LEFT RADIAL; ABG TOTAL HEMOGLOBIN 8.7 G/dL (13.5-18.0); COHb 0.6 % (0.5-1.5); MetHb 0.1 % (0.0-1.5); O2Hb 97.5 % (94.0-97.0); VENT MODE VENT - A/C; VT, ABG 550 mL
[2020-02-19] MEDS: LORAZEPAM 2 MG/1 ML VIAL IV PRN ×3 (07:53→19:46)
[2020-02-19] MEDS: PANTOPRAZOLE SODIUM 40 MG VIAL IV SCH (08:09)
[2020-02-19] MEDS: ASCORBIC ACID 500 MG TABLET GT SCH (08:09)
[2020-02-19] MEDS: POTASSIUM CHLORIDE 20 MEQ POWDER PACKET GT SCH ×2 (08:09→17:43)
[2020-02-19] MEDS: METOPROLOL TARTRATE 25 MG TABLET GT SCH ×2 (08:10→21:04)
[2020-02-19] MEDS: DILTIAZEM HCL 30 MG TABLET GT SCH ×3 (09:32→21:31)
[2020-02-19] MEDS ORDERED: Z GUARD REMEDY PASTE 57 GM TUBE TOP PRN (13:00)
[2020-02-19] MEDS: levoFLOXacin 750MG/D5W 750 MG in PREMIXED 1 EACH IV SCH (20:53)
[2020-02-19] MEDS ORDERED: DILTIAZEM HCL 30 MG TABLET ONE (21:21)
[2020-02-19] MEDS: ENOXAPARIN SODIUM 40 MG/0.4 ML DISP.SYRIN SQ SCH (21:30)
[2020-02-19] MEDS: Z GUARD REMEDY PASTE 57 GM TUBE TOP SCH (21:30)
[2020-02-20] VITALS (23 sets, daily range): BP systolic 92–166; BP diastolic 64–122
[2020-02-20] MEDS: PROTEIN SUPPLEMENT (PROSTAT) 30 ML LIQUID GT SCH ×4 (00:35→17:11)
[2020-02-20] MEDS: ACETAMINOPHEN 325 MG TABLET GT PRN ×4 (01:19→21:10)
[2020-02-20] MEDS: LORAZEPAM 2 MG/1 ML VIAL IV PRN ×4 (01:19→22:31)
[2020-02-20] MEDS: DILTIAZEM HCL 30 MG TABLET GT SCH ×4 (03:10→21:04)
[2020-02-20 05:43] LABS: BASOPHILS # (AUTO) 0.1 K/uL (0.0-8.0); BASOPHILS % (AUTO) 0.9 % (0.0-2.0); EOSINOPHILS # (AUTO) 0.1 K/uL (0.0-0.7); EOSINOPHILS % (AUTO) 0.7 % (0.0-7.0); HEMATOCRIT 25.1 % (36.7-47.1); HEMOGLOBIN 8.4 g/dL (12.5-16.3); LYMPHOCYTES # (AUTO) 1.4 K/uL (20.0-40.0); LYMPHOCYTES % (AUTO) 14.2 % (20.5-51.5); MEAN CORPUSCULAR HEMOGLOBIN 29.9 uug (23.8-33.4); MEAN CORPUSCULAR HGB CONC 33 g/dL (32.5-36.3); MEAN CORPUSCULAR VOLUME 89.9 fL (73.0-96.2); MONOCYTES # (AUTO) 0.9 K/uL (2.0-10.0); MONOCYTES % (AUTO) 9.1 % (0.0-11.0); NEUTROPHILS # (AUTO) 7.2 K/uL (1.8-8.9); NEUTROPHILS % (AUTO) 75.1 % (38.5-71.5); PLATELET COUNT (AUTO) 295 K/uL (152-348); RED BLOOD CELL COUNT(AUTO) 2.79 MIL/uL (4.06-5.63); WHITE BLOOD COUNT (AUTO) 9.6 K/uL (3.6-10.2)
[2020-02-20 06:01] LABS: CREATININE 0.9 mg/dL (0.6-1.3); PHOSPHOROUS 3.6 mg/dL (2.5-4.9)
[2020-02-20] MEDS: PANTOPRAZOLE SODIUM 40 MG VIAL IV SCH (08:36)
[2020-02-20] MEDS: METOPROLOL TARTRATE 25 MG TABLET GT SCH ×2 (08:40→21:03)
[2020-02-20] MEDS: ASCORBIC ACID 500 MG TABLET GT SCH (08:41)
[2020-02-20] MEDS: Z GUARD REMEDY PASTE 57 GM TUBE TOP SCH ×2 (08:42→21:03)
[2020-02-20] MEDS: GLUCERNA 1.2 1000ML LIQUID GT SCH (08:47)
[2020-02-20 10:07] LABS: BILIRUBIN,DIRECT 0.1 mg/dL (0.0-0.2); BILIRUBIN,TOTAL 0.2 mg/dL (0.2-1.0); TOTAL PROTEIN, SERUM 6.7 g/dL (6.4-8.2)
[2020-02-20] MEDS: levoFLOXacin 250 MG TABLET GT SCH (21:02)
[2020-02-20] MEDS: ENOXAPARIN SODIUM 40 MG/0.4 ML DISP.SYRIN SQ SCH (21:11)
[2020-02-21] VITALS (18 sets, daily range): BP systolic 97–163; BP diastolic 63–117
[2020-02-21] MEDS: PROTEIN SUPPLEMENT (PROSTAT) 30 ML LIQUID GT SCH ×5 (00:39→23:20)
[2020-02-21] MEDS: DILTIAZEM HCL 30 MG TABLET GT SCH ×4 (03:04→21:04)
[2020-02-21 05:28] LABS: BASOPHILS # (AUTO) 0.1 K/uL (0.0-8.0); BASOPHILS % (AUTO) 0.9 % (0.0-2.0); EOSINOPHILS # (AUTO) 0.1 K/uL (0.0-0.7); EOSINOPHILS % (AUTO) 1.2 % (0.0-7.0); HEMATOCRIT 24.4 % (36.7-47.1); HEMOGLOBIN 8.2 g/dL (12.5-16.3); LYMPHOCYTES # (AUTO) 1.6 K/uL (20.0-40.0); LYMPHOCYTES % (AUTO) 14.4 % (20.5-51.5); MEAN CORPUSCULAR HEMOGLOBIN 30.4 uug (23.8-33.4); MEAN CORPUSCULAR HGB CONC 34 g/dL (32.5-36.3); MEAN CORPUSCULAR VOLUME 90.4 fL (73.0-96.2); NEUTROPHILS # (AUTO) 8.2 K/uL (1.8-8.9); NEUTROPHILS % (AUTO) 74.5 % (38.5-71.5); PLATELET COUNT (AUTO) 310 K/uL (152-348); WHITE BLOOD COUNT (AUTO) 10.9 K/uL (3.6-10.2)
[2020-02-21 05:42] LABS: POTASSIUM 4.1 mmol/L (3.5-5.1)
[2020-02-21 06:51] LABS: ABG BASE EXCESS 5.5 mmol/L; ABG HCO3 29.7 mmol/L; ABG PCO2 41.7 mmHg (35.0-45.0); ABG PO2 108.3 mmHg (75.0-100.0); ABG SITE LEFT RADIAL; ABG TOTAL HEMOGLOBIN 9.3 G/dL (13.5-18.0); COHb 0.1 % (0.5-1.5); CPAP,BG 6 cmH20; O2Hb 98.2 % (94.0-97.0)
[2020-02-21] MEDS: PANTOPRAZOLE ORAL SUSPENSION 40 MG SUSPDR.PKT GT SCH (08:51)
[2020-02-21] MEDS: ASCORBIC ACID 500 MG TABLET GT SCH (08:52)
[2020-02-21] MEDS: METOPROLOL TARTRATE 25 MG TABLET GT SCH ×2 (08:52→21:03)
[2020-02-21] MEDS: Z GUARD REMEDY PASTE 57 GM TUBE TOP SCH ×2 (09:00→21:06)
[2020-02-21] MEDS ORDERED: PANTOPRAZOLE SODIUM 40 MG TABLET.DR PO SCH (09:00)
[2020-02-21] MEDS: levoFLOXacin 250 MG TABLET GT SCH (21:05)
[2020-02-21] MEDS: ENOXAPARIN SODIUM 40 MG/0.4 ML DISP.SYRIN SQ SCH (21:07)
[2020-02-21] MEDS: GLUCERNA 1.2 1000ML LIQUID GT SCH (21:17)
[2020-02-21] MEDS: LORAZEPAM 2 MG/1 ML VIAL IV PRN (22:21)
[2020-02-22] VITALS (23 sets, daily range): BP systolic 94–150; BP diastolic 52–112
[2020-02-22] MEDS: DILTIAZEM HCL 30 MG TABLET GT SCH ×4 (03:05→21:37)
[2020-02-22 04:56] LABS: BASOPHILS # (AUTO) 0.1 K/uL (0.0-8.0); BASOPHILS % (AUTO) 0.5 % (0.0-2.0); EOSINOPHILS # (AUTO) 0.1 K/uL (0.0-0.7); EOSINOPHILS % (AUTO) 0.7 % (0.0-7.0); HEMATOCRIT 26.3 % (36.7-47.1); HEMOGLOBIN 8.6 g/dL (12.5-16.3); LYMPHOCYTES # (AUTO) 1.6 K/uL (20.0-40.0); LYMPHOCYTES % (AUTO) 14.3 % (20.5-51.5); MEAN CORPUSCULAR HEMOGLOBIN 29.7 uug (23.8-33.4); MEAN CORPUSCULAR HGB CONC 33 g/dL (32.5-36.3); MEAN CORPUSCULAR VOLUME 90.4 fL (73.0-96.2); MONOCYTES % (AUTO) 8.9 % (0.0-11.0); NEUTROPHILS # (AUTO) 8.7 K/uL (1.8-8.9); NEUTROPHILS % (AUTO) 75.6 % (38.5-71.5); PLATELET COUNT (AUTO) 350 K/uL (152-348); RED BLOOD CELL COUNT(AUTO) 2.91 MIL/uL (4.06-5.63); WHITE BLOOD COUNT (AUTO) 11.6 K/uL (3.6-10.2)
[2020-02-22] MEDS: PROTEIN SUPPLEMENT (PROSTAT) 30 ML LIQUID GT SCH ×3 (05:07→18:21)
[2020-02-22 05:11] LABS: BILIRUBIN,DIRECT 0.1 mg/dL (0.0-0.2); BILIRUBIN,TOTAL 0.2 mg/dL (0.2-1.0); CREATININE 1.1 mg/dL (0.6-1.3); PHOSPHOROUS 3.7 mg/dL (2.5-4.9); POTASSIUM 3.7 mmol/L (3.5-5.1); TOTAL PROTEIN, SERUM 6.6 g/dL (6.4-8.2)
[2020-02-22 07:05] LABS: ABG BASE EXCESS 1.9 mmol/L; ABG HCO3 25.7 mmol/L; ABG PCO2 36.9 mmHg (35.0-45.0); ABG PH 7.461 (7.350-7.450); ABG PO2 87.1 mmHg (75.0-100.0); ABG SITE LEFT RADIAL; ABG TOTAL HEMOGLOBIN 9.5 G/dL (13.5-18.0); COHb 0.3 % (0.5-1.5); MetHb 0.2 % (0.0-1.5); O2Hb 96.1 % (94.0-97.0); VENT MODE Trach Collar 30%
[2020-02-22] MEDS: ASCORBIC ACID 500 MG TABLET GT SCH (08:35)
[2020-02-22] MEDS: METOPROLOL TARTRATE 25 MG TABLET GT SCH ×2 (08:35→21:36)
[2020-02-22] MEDS: PANTOPRAZOLE ORAL SUSPENSION 40 MG SUSPDR.PKT GT SCH (08:35)
[2020-02-22] MEDS: Z GUARD REMEDY PASTE 57 GM TUBE TOP SCH ×2 (08:36→21:49)
[2020-02-22] MEDS: GLUCERNA 1.2 1000ML LIQUID GT SCH (08:51)
[2020-02-22] MEDS: LORAZEPAM 2 MG/1 ML VIAL IV PRN ×3 (09:55→22:47)
[2020-02-22] MEDS: ACETAMINOPHEN 325 MG TABLET GT PRN (12:01)
[2020-02-22] MEDS ORDERED: risperiDONE 0.25 MG TABLET GT PRN (19:15)
[2020-02-22] MEDS ORDERED: risperiDONE 0.25 MG TABLET GT SCH (20:00)
[2020-02-22] MEDS: risperiDONE 0.25 MG TABLET GT SCH (20:17)
[2020-02-22] MEDS: levoFLOXacin 250 MG TABLET GT SCH (21:37)
[2020-02-22] MEDS: ENOXAPARIN SODIUM 40 MG/0.4 ML DISP.SYRIN SQ SCH (22:49)
[2020-02-22] MEDS: risperiDONE 0.25 MG TABLET GT PRN (22:57)
[2020-02-23] VITALS (22 sets, daily range): BP systolic 84–129; BP diastolic 43–83
[2020-02-23] MEDS: PROTEIN SUPPLEMENT (PROSTAT) 30 ML LIQUID GT SCH ×5 (00:07→23:42)
[2020-02-23] MEDS: DILTIAZEM HCL 30 MG TABLET GT SCH ×4 (03:00→20:05)
[2020-02-23] MEDS: risperiDONE 0.25 MG TABLET GT PRN ×2 (04:57→17:34)
[2020-02-23 05:03] LABS: BASOPHILS # (AUTO) 0.1 K/uL (0.0-8.0); BASOPHILS % (AUTO) 0.5 % (0.0-2.0); EOSINOPHILS # (AUTO) 0.1 K/uL (0.0-0.7); EOSINOPHILS % (AUTO) 1.4 % (0.0-7.0); HEMATOCRIT 28.1 % (36.7-47.1); HEMOGLOBIN 9.3 g/dL (12.5-16.3); LYMPHOCYTES # (AUTO) 1.7 K/uL (20.0-40.0); LYMPHOCYTES % (AUTO) 17.2 % (20.5-51.5); MEAN CORPUSCULAR HGB CONC 33 g/dL (32.5-36.3); MEAN CORPUSCULAR VOLUME 90.8 fL (73.0-96.2); MONOCYTES # (AUTO) 0.9 K/uL (2.0-10.0); MONOCYTES % (AUTO) 8.8 % (0.0-11.0); NEUTROPHILS # (AUTO) 7.3 K/uL (1.8-8.9); NEUTROPHILS % (AUTO) 72.1 % (38.5-71.5); PLATELET COUNT (AUTO) 356 K/uL (152-348); RED BLOOD CELL COUNT(AUTO) 3.09 MIL/uL (4.06-5.63); WHITE BLOOD COUNT (AUTO) 10.1 K/uL (3.6-10.2)
[2020-02-23 05:16] LABS: BILIRUBIN,TOTAL 0.2 mg/dL (0.2-1.0); CREATININE 1.1 mg/dL (0.6-1.3); MAGNESIUM 2.1 mg/dL (1.8-2.4); TOTAL PROTEIN, SERUM 6.9 g/dL (6.4-8.2)
[2020-02-23] MEDS: LORAZEPAM 2 MG/1 ML VIAL IV PRN ×3 (06:31→16:16)
[2020-02-23] MEDS: ASCORBIC ACID 500 MG TABLET GT SCH (08:35)
[2020-02-23] MEDS: METOPROLOL TARTRATE 25 MG TABLET GT SCH ×2 (08:36→20:05)
[2020-02-23] MEDS: PANTOPRAZOLE ORAL SUSPENSION 40 MG SUSPDR.PKT GT SCH (08:38)
[2020-02-23] MEDS: risperiDONE 0.25 MG TABLET GT SCH (08:41)
[2020-02-23] MEDS: Z GUARD REMEDY PASTE 57 GM TUBE TOP SCH ×2 (08:42→20:06)
[2020-02-23] MEDS: GLUCERNA 1.2 1000ML LIQUID GT SCH (10:26)
[2020-02-23] MEDS ORDERED: risperiDONE 0.25 MG TABLET GT SCH (13:00)
[2020-02-23] MEDS: levoFLOXacin 750 MG TABLET GT SCH (20:05)
[2020-02-23] MEDS: risperiDONE 0.5 MG TABLET GT SCH (20:06)
[2020-02-23] MEDS: ENOXAPARIN SODIUM 40 MG/0.4 ML DISP.SYRIN SQ SCH (20:10)
[2020-02-24] VITALS (24 sets, daily range): BP systolic 91–172; BP diastolic 46–122
[2020-02-24] MEDS: ACETAMINOPHEN 325 MG TABLET GT PRN (01:23)
[2020-02-24] MEDS: risperiDONE 0.25 MG TABLET GT PRN ×2 (01:45→08:02)
[2020-02-24] MEDS: DILTIAZEM HCL 30 MG TABLET GT SCH ×4 (02:21→20:12)
[2020-02-24 05:13] LABS: HEMATOCRIT 27.4 % (36.7-47.1); HEMOGLOBIN 9.1 g/dL (12.5-16.3); LYMPHOCYTES % (AUTO) 19.5 % (20.5-51.5); MEAN CORPUSCULAR HEMOGLOBIN 30.1 uug (23.8-33.4); MEAN CORPUSCULAR HGB CONC 33 g/dL (32.5-36.3); NEUTROPHILS % (AUTO) 68.1 % (38.5-71.5); PLATELET COUNT (AUTO) 302 K/uL (152-348); RED BLOOD CELL COUNT(AUTO) 3.01 MIL/uL (4.06-5.63); WHITE BLOOD COUNT (AUTO) 7.7 K/uL (3.6-10.2)
[2020-02-24 05:14] LABS: BASOPHILS # (AUTO) 0.1 K/uL (0.0-8.0); BASOPHILS % (AUTO) 0.8 % (0.0-2.0); EOSINOPHILS # (AUTO) 0.1 K/uL (0.0-0.7); EOSINOPHILS % (AUTO) 1.6 % (0.0-7.0); LYMPHOCYTES # (AUTO) 1.5 K/uL (20.0-40.0); MONOCYTES # (AUTO) 0.8 K/uL (2.0-10.0); NEUTROPHILS # (AUTO) 5.2 K/uL (1.8-8.9)
[2020-02-24 05:21] LABS: CREATININE 1.1 mg/dL (0.6-1.3); MAGNESIUM 2.2 mg/dL (1.8-2.4); PHOSPHOROUS 4.2 mg/dL (2.5-4.9)
[2020-02-24] MEDS: PROTEIN SUPPLEMENT (PROSTAT) 30 ML LIQUID GT SCH ×4 (05:29→17:25)
[2020-02-24] MEDS: risperiDONE 0.5 MG TABLET GT SCH ×4 (08:05→20:12)
[2020-02-24] MEDS: PANTOPRAZOLE ORAL SUSPENSION 40 MG SUSPDR.PKT GT SCH (08:06)
[2020-02-24] MEDS: METOPROLOL TARTRATE 25 MG TABLET GT SCH ×2 (08:06→20:13)
[2020-02-24] MEDS: Z GUARD REMEDY PASTE 57 GM TUBE TOP SCH ×2 (08:07→20:40)
[2020-02-24] MEDS: ASCORBIC ACID 500 MG TABLET GT SCH (08:07)
[2020-02-24] MEDS: LORAZEPAM 0.5 MG TABLET GT PRN ×4 (09:22→20:11)
[2020-02-24] MEDS ORDERED: FUROSEMIDE 20 MG/2 ML VIAL IV ONE (09:50)
[2020-02-24] MEDS ORDERED: risperiDONE 0.5 MG TABLET GT PRN (10:30)
[2020-02-24] MEDS: LORAZEPAM 2 MG/1 ML VIAL IV PRN (16:01)
[2020-02-24] MEDS: levoFLOXacin 750 MG TABLET GT SCH (20:12)
[2020-02-24] MEDS: ENOXAPARIN SODIUM 40 MG/0.4 ML DISP.SYRIN SQ SCH (20:19)
[2020-02-24] MEDS: GLUCERNA 1.2 1000ML LIQUID GT SCH (21:41)
[2020-02-24] MEDS ORDERED: MEROPENEM 1 G in IV NORMAL SALINE 100 ML IV SCH (22:00)
[2020-02-25] VITALS (19 sets, daily range): BP systolic 85–160; BP diastolic 45–89
[2020-02-25] MEDS: DILTIAZEM HCL 30 MG TABLET GT SCH ×5 (02:46→16:20)
[2020-02-25 05:16] LABS: BASOPHILS # (AUTO) 0.1 K/uL (0.0-8.0); BASOPHILS % (AUTO) 0.8 % (0.0-2.0); EOSINOPHILS # (AUTO) 0.1 K/uL (0.0-0.7); EOSINOPHILS % (AUTO) 1.6 % (0.0-7.0); HEMATOCRIT 26.8 % (36.7-47.1); HEMOGLOBIN 8.9 g/dL (12.5-16.3); LYMPHOCYTES # (AUTO) 1.2 K/uL (20.0-40.0); LYMPHOCYTES % (AUTO) 14.8 % (20.5-51.5); MEAN CORPUSCULAR HEMOGLOBIN 30.1 uug (23.8-33.4); MEAN CORPUSCULAR HGB CONC 33 g/dL (32.5-36.3); MEAN CORPUSCULAR VOLUME 90.6 fL (73.0-96.2); MONOCYTES # (AUTO) 0.9 K/uL (2.0-10.0); MONOCYTES % (AUTO) 11.2 % (0.0-11.0); NEUTROPHILS # (AUTO) 5.6 K/uL (1.8-8.9); NEUTROPHILS % (AUTO) 71.6 % (38.5-71.5); PLATELET COUNT (AUTO) 273 K/uL (152-348); RED BLOOD CELL COUNT(AUTO) 2.96 MIL/uL (4.06-5.63); WHITE BLOOD COUNT (AUTO) 7.8 K/uL (3.6-10.2)
[2020-02-25] MEDS: MEROPENEM 1 G in IV NORMAL SALINE 100 ML IV SCH ×2 (05:26→14:03)
[2020-02-25] MEDS: PROTEIN SUPPLEMENT (PROSTAT) 30 ML LIQUID GT SCH ×2 (05:26)
[2020-02-25] MEDS: LORAZEPAM 0.5 MG TABLET GT PRN (05:34)
[2020-02-25 05:38] LABS: MAGNESIUM 2.2 mg/dL (1.8-2.4); PHOSPHOROUS 3.7 mg/dL (2.5-4.9); POTASSIUM 3.6 mmol/L (3.5-5.1)
[2020-02-25] MEDS ORDERED: IV NORMAL SALINE 500 ML BAG IV ONE (05:45)
[2020-02-25] MEDS: risperiDONE 0.5 MG TABLET GT SCH ×3 (08:27→16:19)
[2020-02-25] MEDS: METOPROLOL TARTRATE 25 MG TABLET GT SCH ×2 (08:30→09:47)
[2020-02-25] MEDS: ASCORBIC ACID 500 MG TABLET GT SCH (08:30)
[2020-02-25] MEDS: PANTOPRAZOLE ORAL SUSPENSION 40 MG SUSPDR.PKT GT SCH (08:30)
[2020-02-25] MEDS: ACETAMINOPHEN 325 MG TABLET GT PRN (08:30)
[2020-02-25] MEDS: Z GUARD REMEDY PASTE 57 GM TUBE TOP SCH (08:31)
[2020-02-25] MEDS ORDERED: ACIDOPHILUS/BULGARICUS CHEW TAB GT SCH (09:00)
[2020-02-25] MEDS ORDERED: PROTEIN SUPPLEMENT (PROSTAT) 30 ML LIQUID GT SCH (09:00)
[2020-02-25] MEDS ORDERED: DILT30TA33 GT (11:40)
[2020-02-25] MEDS ORDERED: ACET325T53 GT (11:40)
[2020-02-25] MEDS ORDERED: LORA0.5T48 GT (11:40)
[2020-02-25] MEDS ORDERED: DOCU250C14 GT (11:40)
[2020-02-25] MEDS ORDERED: ASCO500T21 GT (11:40)
[2020-02-25] MEDS ORDERED: MENT71OI TOP (11:40)
[2020-02-25] MEDS ORDERED: RISP0.5T5 PO (11:40)
[2020-02-25] MEDS ORDERED: MERO500V21 IV (11:40)
[2020-02-25] MEDS ORDERED: PROT30LI GT (11:40)
[2020-02-25] MEDS ORDERED: levoFLOXacin GT (11:40)
[2020-02-25] MEDS ORDERED: PANT40SU2 GT (11:40)
[2020-02-25] MEDS ORDERED: ACID1TAB4 GT (11:40)
== END 2020-02-25 19:00 | DRG 720 ==
LOC: ER 18:06 → CCU 20:33
PROVIDERS: ADMIT Nurse Practitioner Acute Care; ATTEND Internal Medicine
PROC: 5A1955Z Respiratory Ventilation, Greater than 96 Consecutive Hours (ICD-10-PCS; principal; 2020-02-17)
DX: A41.9 Sepsis, unspecified organism (principal); I47.1 Supraventricular tachycardia; E43 Unspecified severe protein-calorie malnutrition; R53.2 Functional quadriplegia; J96.21 Acute and chronic respiratory failure with hypoxia; D63.8 Anemia in other chronic diseases classified elsewhere; D68.69 Other thrombophilia; E78.5 Hyperlipidemia, unspecified; F32.9 Major depressive disorder, single episode, unspecified; F41.9 Anxiety disorder, unspecified; G92 Toxic encephalopathy; I13.0 Hypertensive heart and chronic kidney disease with heart failure and stage 1 through stage 4 chronic kidney disease, or unspecified chronic kidney disease; I25.2 Old myocardial infarction; I48.0 Paroxysmal atrial fibrillation; I48.92 Unspecified atrial flutter; I50.33 Acute on chronic diastolic (congestive) heart failure; I69.354 Hemiplegia and hemiparesis following cerebral infarction affecting left non-dominant side; Z93.1 Gastrostomy status; M19.90 Unspecified osteoarthritis, unspecified site; Z88.0 Allergy status to penicillin; Z93.0 Tracheostomy status; Z87.01 Personal history of pneumonia (recurrent); Z86.718 Personal history of other venous thrombosis and embolism; N18.9 Chronic kidney disease, unspecified; M54.30 Sciatica, unspecified side; R13.10 Dysphagia, unspecified; Z74.01 Bed confinement status; Z68.25 Body mass index [BMI] 25.0-25.9, adult; Z86.19 Personal history of other infectious and parasitic diseases; F05 Delirium due to known physiological condition; R74.01 Elevation of levels of liver transaminase levels; J69.0 Pneumonitis due to inhalation of food and vomit; F29 Unspecified psychosis not due to a substance or known physiological condition; E03.9 Hypothyroidism, unspecified; Z99.11 Dependence on respirator [ventilator] status; F01.50 Vascular dementia, unspecified severity, without behavioral disturbance, psychotic disturbance, mood disturbance, and anxiety; I25.10 Atherosclerotic heart disease of native coronary artery without angina pectoris; E27.40 Unspecified adrenocortical insufficiency; E87.6 Hypokalemia; I77.810 Thoracic aortic ectasia; K57.91 Diverticulosis of intestine, part unspecified, without perforation or abscess with bleeding
CPT/HCPCS: 36415; 36600; 70030-TC; 71045; 82533; 83605; 83735; 84100; 84443; 85025; 87040; 93005; 93307; 94002; 94003; A4217; C9113; G0378; J1650; J1940; J1956; J2060; J2185; J2370; J3480; J3490; J7050; J7060